=== PATIENT | female | born 1980 | race Caucasian/White ===

== ENCOUNTER → 2016-04-06 | Outpatient (CLI) | payer OTHER ==
[~2016-04-06] MED LIST: BUPIVACAINE MPF 0.25% 10 ML VIAL. ONE; CHOL400T14 PO; CYCL10TA2 PO; DEXT20TA2 PO; HYDR-2762 PO; IBUP-1060 PO; IBUP200T43 PO; IOHEXOL 180 MG/ML 10 ML VIAL. ONE; TIZA4TAB PO; TRAM50TA PO; methylPREDNISolone ACETATE 40 MG/ML VIAL. ONE; methylPREDNISolone ACETATE 80 MG/ML VIAL. ONE
--- NOTE | 2016-04-07 05:58 | PAIN ---
DATE OF SERVICE: 04/06/2016 DIAGNOSES: Lumbar radiculopathy with lumbar spondylosis and lumbar degenerative disk disease. HISTORY OF PRESENT ILLNESS: The patient is a 35-year-old female, who returns for followup, last seen in 2013. The patient had undergone lumbar epidural steroid injection. Also, we had ordered some physical therapy for her and some medication management at that time. The patient reports that she still has significant pain even over the past 3 years in the low back, bilateral posterior gluteus, and posterior thighs with radiation. The patient has recently had an MRI scan of the lumbar spine showing some degenerative disk changes in the L4-5 and L5-S1 levels, posterior annular tears at these levels as well with mild lateral recess stenosis at L4-5. This patient reports still significant pain in the low back and hips with walking, standing, and change in positions, rates her pain from a 6 to 9 on a scale of 10, reports no loss of motor function, but significant pain in the lower extremities and across the low back, slightly more on the left than the right, worse with sitting, walking, and changing positions, and since she has been walking differently, she feels that this has been making her back hurt worse and vice versa - when she is not having much difficulty with walking, her back hurts____ and then it makes her walk differently, which sets the whole thing off again. The patient reports that otherwise, she is having no new motor or sensory deficits, no new bowel or bladder incontinence or other complaints. PAST MEDICAL HISTORY: Significant for arthritis and cigarette smoking a half a pack a day since age 16. PREVIOUS SURGERIES: Include laparoscopic-assisted vaginal hysterectomy and ____. CURRENT MEDICATIONS: Were updated and include vitamin D, hydrocodone, ibuprofen, tizanidine, and tramadol. ALLERGIES: The patient has no known drug allergies. FAMILY HISTORY: Significant for cancer, diabetes, heart disease, hypertension, and spine problems. SOCIAL HISTORY: The patient is still smoking about a half pack a day or so. She is , lives with her spouse, and is employed. The patient has alcohol 1 to 2 times a year. REVIEW OF SYSTEMS: The patient's review of systems is positive for those items mentioned in the history of present illness. All systems reviewed and are otherwise negative. It is complete, full, and well-documented on the patient's chart. PHYSICAL EXAMINATION: VITAL SIGNS: Today, the patient's blood pressure is 143/75, pulse 90, respirations 18, temperature 98.2 degrees Fahrenheit, height is 5 feet 4 inches, and weight is 217 pounds. GENERAL: The patient is awake, alert, oriented, and appropriate, of very pleasant demeanor. HEENT: Head shows normocephalic, atraumatic. Extraocular movements are intact and symmetrical. Oral cavity - mucous membranes are moist and pink. Dentition is intact. NECK: Shows anterior throat supple without palpable lymphadenopathy noted. Swallow reflex is symmetrical. Neck shows full rotational motion of the cervical spine without difficulty or tenderness, including extension and flexion. CHEST: Shows normal on inspection. Breath sounds are clear to auscultation bilaterally. HEART: Shows S1 and S2 clear. No murmurs auscultated. ABDOMEN: Obese, soft, nontender, and nondistended. No palpable organomegaly. No rebound or guarding demonstrated. BACK: Shows spine grossly midline. Normal appearing thoracic kyphosis, cervical lordotic curvature, and lumbar lordotic curvature. No previous bruises, lesions, rashes, or scars are noted. The patient's lumbar paraspinous muscle shows some moderate tenderness with palpation in the middle and lower distribution bilaterally diffusely, but without specific radiation. The patient reports pain with extension and forward flexion of the lumbar spine with range of motion not tender with lateral rotation however, to the right, but significantly tender to the left with pain in the low back itself and slightly into the left posterior hip, but not into the right. The patient reports no tenderness on palpation over the sacrum or sacroiliac regions. LOWER EXTREMITIES: Showed deep tendon reflexes at 1+ in the patellar and tendocalcaneus tendons. Motor exam is strong with 5/5 dorsiflexion, extension, quadriceps, and hamstring flexion and are symmetrical. Peripheral pulses are 2+ in the posterior tibial and dorsalis pedis pulses. No peripheral edema is noted. No clubbing, no cyanosis. Lower extremities are warm and dry to touch, equal in color and appearance. Straight leg raise is noted to be negative for reproduction of radicular symptoms; caused some back pain, more on the left side with raising to 45 degrees, but less pain on the right side with 45 degrees. Gaenslen's and Anthony's maneuvers are negative bilaterally. The patient is able to stand and stand on her toes without difficulties. She is able to walk without assistive devices, and has a normal-appearing gait for a short-distance walk in the office today. PLAN: Options were discussed with the patient. The patient's old chart was reviewed, as was her current medication regimen updated. Current review of systems updated again as noted. We will proceed with bilateral lumbar facet joint injection at the L4-5 and L5-S1 levels with fluoroscopic guidance today. Risks were discussed, including, but not limited to bleeding, infection, possibility of epidural hematoma, subsequent neurologic compromise, dural puncture, headaches, spinal cord and/or nerve damage, side effects of steroid medication, and poor results regarding pain control. The patient understands and wishes to proceed. The patient will return to clinic in approximately 2 weeks for followup, was counseled on return appointment, activity level and side effects to be aware of. We did discuss potential radiofrequency ablation if significant improvement is obtained and we can repeat those results. The patient is interested in this as well. We did discuss her MRI scan also and may consider an epidural steroid injection if not significantly improved after today's procedure. DIAGNOSIS: Lumbar spondylosis with degenerative disk disease and lumbar radiculopathy. PROCEDURE: Bilateral L4-5 and L5-S1 facet joint injections with fluoroscopic guidance under sterile prep and drape using local anesthesia. MEDICATIONS: Total 120 mg of Depo-Medrol plus 4 mL of 0.25% bupivacaine and 2 mL of Isovue for contrast total. CONDITION AT DISCHARGE: Stable. The patient tolerated the procedure well, had no complications. ROSITA RANGEL MD DR: ALYSSA/wayne JOB#: [id number] / [id number]
== END | disposition home or self-care (01) ==
LOC: PNCL 10:16
PROVIDERS: ATTEND Anesthesiology
DX: M51.16 Intervertebral disc disorders with radiculopathy, lumbar region (principal); M47.26 Other spondylosis with radiculopathy, lumbar region
CPT/HCPCS: 64493; 64494; J1030; J1040; J3490

== ENCOUNTER → 2016-04-27 | Outpatient (CLI) | payer OTHER ==
--- NOTE | 2016-04-28 00:22 | PAIN ---
DATE OF SERVICE: 04/27/2016 DIAGNOSES: Lumbar degenerative disk disease, lumbar spondylosis and lumbar radiculopathy. HISTORY OF PRESENT ILLNESS: The patient is a 35-year-old female who returns for followup status post bilateral lumbar facet joint injections at the L4-L5 and L5-S1 levels about 3 weeks ago. The patient reports that she did very well, but it took a few days for the pain to decrease. She was doing very well until about a week ago when she tripped over her cat at home and twisted her back, fell on her left side and now has increased pain in the low back, left greater than right, as she did previously with some radiation to the posterior gluteus, posterior lateral thighs and anterior thighs, mostly in the back itself and the posterior gluteus. The patient reports it is constant, sharp with a pressure sensation, depends on activity, worse with standing and walking, better with sitting and has been awakening her from sleep lately as well. The patient reports the pain is 3-4 on a scale of 10 currently. The patient reports no new motor or sensory deficits, no new bowel or bladder incontinence or other complaints. PHYSICAL EXAMINATION: VITAL SIGNS: Shows blood pressure 121/82, pulse 103, respirations 18, temperature 97.8 degrees Fahrenheit, height is 5 feet 4 inches, weight is 208 pounds. GENERAL: The patient is awake, alert, oriented, appropriate, very pleasant demeanor. HEENT: Shows normocephalic, atraumatic. Extraocular movements are intact and symmetrical. Oral cavity shows mucous membranes are moist and pink. Dentition is intact. NECK: Shows anterior throat supple without palpable lymphadenopathy noted. Swallow reflex is symmetrical. CHEST: Shows normal on inspection. Breath sounds are clear to auscultation bilaterally. HEART: Shows S1 and S2 clear. No murmurs auscultated. ABDOMEN: Soft, nontender, nondistended. No palpable organomegaly is noted. No rebound or guarding demonstrated. BACK: Shows spine grossly in the midline. Lumbar paraspinous muscle shows some moderate tenderness to palpation, but only diffusely in the middle and lower distribution of paraspinous muscles, slightly more tender on the left than the right, but present bilaterally. No tenderness over the sacrum or sacroiliac regions. The patient does show some minor pain with extension of the lumbar spine, but not with forward flexion or right and left lateral rotation. EXTREMITIES: The patient's lower extremities showed deep tendon reflexes 1+ in the patellar and tendo calcaneus tendons. Motor exam is strong with 5/5 dorsiflexion, extension. Quadriceps and hamstrings are equal. Options were discussed with the patient. We will proceed with repeat bilateral L4-L5 and L5-S1 facet joint injections with fluoroscopic guidance. Risks were again discussed including, but not limited to bleeding, infection, possibility of epidural hematoma, subsequent neurological compromise, dural punctures, headaches, spinal cord and/or nerve damage, side effects of steroid medication, spread of local anesthetic and numbness, side effects of steroid medications, exposure to fluoroscopy and poor results regarding pain control. The patient understands and wishes to proceed. The patient will return to the clinic in approximately 2 weeks for followup, was counseled on return appointment, activity level and side effects to be aware of. DIAGNOSIS: Lumbar spondylosis with lumbar degenerative disk disease and lumbar radiculopathy. PROCEDURES: Bilateral L4-L5 and L5-S1 facet joint injections with fluoroscopic guidance under sterile prep and drape using local anesthetic. Medications injected a total of 120 mg of Depo-Medrol plus total of 4 mL of 0.25% bupivacaine and a total of 2 mL of Isovue for contrast. Condition at discharge is stable. The patient tolerated the procedure well, had no complications. ROSITA RANGEL MD DR: ALYSSA/wayne JOB#: [id number] / [id number]
== END | disposition home or self-care (01) ==
LOC: PNCL 12:57
PROVIDERS: ATTEND Anesthesiology
DX: M51.16 Intervertebral disc disorders with radiculopathy, lumbar region (principal); M47.26 Other spondylosis with radiculopathy, lumbar region
CPT/HCPCS: 64493; 64494; J1030; J1040; J3490

== ENCOUNTER → 2016-05-30 | Outpatient (CLI) | payer OTHER ==
[~2016-05-30] MED LIST changes: -BUPIVACAINE MPF 0.25% 10 ML VIAL. ONE; -IOHEXOL 180 MG/ML 10 ML VIAL. ONE; -methylPREDNISolone ACETATE 40 MG/ML VIAL. ONE; -methylPREDNISolone ACETATE 80 MG/ML VIAL. ONE
--- NOTE | 2016-05-31 03:26 | PAIN ---
DATE OF SERVICE: 05/30/2016 DIAGNOSES: Lumbar spondylosis with lumbar degenerative disk disease. HISTORY OF PRESENT ILLNESS: This is a 35-year-old female who returns for followup status post bilateral lumbar facet joint injections at L4-L5 and L5-S1 x 2 now, each with excellent results. The patient reports about 80% improvement after the last injections, lasting for several weeks, almost 1 month. The patient reports pain is beginning to return in the low back, slightly more on the left than the right side now, but present bilaterally, again she has been increasing her activity with greater ease and comfort, has actually lost some weight since her last visit, she has been more active because her pain has been controlled much better and she is very pleased with her progress thus far. The patient reports she has cut down her pain medicines as well. She still has 1 hydrocodone tablet ____ for 20 over a month ago. The patient reports no new motor or sensory, still significant pain across the low back, worse with sitting for prolonged periods worse with walking and extension of the lumbar spine, aching, sharp, tight and shooting pain rating from 2-8 on a scale of 10, 8 with activity. The patient reports no new motor or sensory deficits, no new bowel or bladder incontinence or other complaints, but still significant pain across the low back is noted. PHYSICAL EXAMINATION: VITAL SIGNS: The patient's blood pressure is 115/71, respirations are 18, temperature is 98.1 degrees Fahrenheit and height is 5 feet 3 inches, weight is 205 pounds. GENERAL: The patient is awake, alert, oriented, appropriate, very pleasant demeanor. HEENT: Head shows normocephalic and atraumatic. Extraocular movements are intact and symmetrical. Oral cavity, mucous membranes are moist and pink. Dentition is intact. NECK: Shows anterior throat supple without palpable lymphadenopathy noted. Swallow reflex is symmetrical. CHEST: Shows normal on inspection. Breath sounds are clear to auscultation bilaterally. HEART: Shows S1 and S2 clear. No murmurs are auscultated. ABDOMEN: Obese, soft, nontender, and nondistended. No palpable organomegaly is noted. BACK: Shows spine grossly midline. Lumbar paraspinous muscle shows some diffuse tenderness with palpation bilaterally in the lumbar distribution in the middle and lower regions bilaterally, but without radiation. It is only mild to moderate with palpation, the muscles are symmetrical, no evidence of atrophy, hypertrophy, no radiation or trigger points. No tenderness over the spinous processes, sacroiliac joint or sacrum with palpation. Lower extremities show deep tendon reflexes at 1+ in the patellar and tendo calcaneus tendons. Motor exam is strong with 5/5 dorsiflexion and extension. The patient does have good rotation and motion of the lumbar spine, but again extension greater than 10 degrees, causes significant pain across the low back, slightly more on the left than the right, but present bilaterally. This is relieved with forward flexion. Right and left lateral rotation shows mild tenderness with each direction at about 10 degrees as well. Options were discussed with the patient and the patient's old chart was reviewed as her current medication regimen and updated. Current review of systems updated today as well. We will preauthorize the patient for a radiofrequency ablation at the level L4-L5 and L5-S1 levels bilaterally. She has done very well with facet joint diagnostic blocks with up to 80% improvement, reproduced twice and she would like to proceed with this for some potential longer term pain relief. The patient will be given refill prescription for hydrocodone and 25 tablet 7.5 mg with instructions and side effects to be aware of as well and will follow up once preauthorization is obtained. ROSITA RANGEL MD DR: ALYSSA/wayne JOB#: [id number] / [id number]
== END | disposition home or self-care (01) ==
LOC: PNCL 10:47
PROVIDERS: ATTEND Anesthesiology
DX: M51.36 Other intervertebral disc degeneration, lumbar region (principal); M47.896 Other spondylosis, lumbar region
CPT/HCPCS: 99212

== ENCOUNTER → 2016-06-20 | Outpatient (CLI) | payer OTHER ==
--- NOTE | 2016-06-20 17:13 | PAIN ---
DATE OF SERVICE: 06/20/2016 PROGRESS NOTE FOR PAIN CLINIC DIAGNOSES: Lumbar spondylosis with lumbar degenerative disk disease. DISCUSSION PRESENT ILLNESS: The patient is a 35-year-old female, who returns for followup status post bilateral lumbar facet joint injections with very good results about 80% improvement overall also medication management with hydrocodone. We reschedule her for radiofrequency ablation; however, is not for about another 2-3 weeks and she is still having some pain and her schedule is not allow her to get this done prior to this and/or schedule difficult to make this happened as well. Therefore, we have her scheduled first begin July and she is having some pain in the meantime, we discussed the success with ____, which were repeated with good 80% improvement, both times she is very pleased about that and very excited to get the radiofrequency done and we will maintain as scheduled, the patient will be given refill hydrocodone today with instructions, side effects to be aware of. Reports no new motor or sensory deficits, still some pain across the low back bilaterally, slightly more on the right than the left, but essentially the same when questioned further. The patient reports no new motor or sensory deficits, no new bowel or bladder incontinence or other complaints. PHYSICAL EXAMINATION: VITAL SIGNS: Today, blood pressure 136/86, pulse 84, respirations are 20, temperature 98.6 degrees Fahrenheit, weight is 200 pounds. GENERAL: The patient is awake, alert, oriented, appropriate, very pleasant demeanor. HEENT: Head shows normocephalic, atraumatic. Extraocular movements are intact and symmetrical. Oral cavity, mucous membranes are moist and pink. Dentition is intact. NECK: Shows anterior throat supple without palpable lymphadenopathy noted. Swallow reflex is symmetrical. CHEST: Shows normal on inspection. Breath sounds are clear to auscultation bilaterally. HEART: Shows S1 and S2 clear. ABDOMEN: Soft, nontender, nondistended. No palpable organomegaly. No rebound or guarding demonstrated. BACK: The patient's back shows spine grossly midline. Lumbar paraspinous muscle shows some moderate tenderness to palpation in the lower lumbar distribution only diffusely good rotational motion with some pain with extension, but not with forward flexion. EXTREMITIES: Lower extremities show deep tendon reflexes at 1+ in the patellar and tendo calcaneus tendons. Motor exam is strong with 5/5 dorsiflexion, extension, quadriceps and hamstring flexion equal. Options were discussed with the patient. We will refill the patient's hydrocodone. The patient's old chart was reviewed as her current medication regimen and current review of systems. The patient was given instructions as well as side effects to be aware with the hydrocodone again will follow up as scheduled for radiofrequency ablation in the bilateral medial branches at the L3-L4, L4-L5 and L5-S1 levels. ROSITA RANGEL MD DR: ALYSSA/wayne JOB#: [id number] / [id number]
== END | disposition home or self-care (01) ==
LOC: PNCL 13:48
PROVIDERS: ATTEND Anesthesiology
DX: M51.36 Other intervertebral disc degeneration, lumbar region (principal); M47.896 Other spondylosis, lumbar region
CPT/HCPCS: 99212

== ENCOUNTER → 2016-07-11 | Outpatient (CLI) | payer OTHER ==
[~2016-07-11] MED LIST changes: +BUPIVACAINE MPF 0.25% 10 ML VIAL. ONE; +LIDOCAINE 1% PF 2 ML VIAL. ONE; +LIDOCAINE 2% PF Vial for OR 5 ML VIAL. ONE; +methylPREDNISolone ACETATE 40 MG/ML VIAL. ONE; +methylPREDNISolone ACETATE 80 MG/ML VIAL. ONE
--- NOTE | 2016-07-12 13:56 | PAIN ---
DATE OF SERVICE: 07/11/2016 PROGRESS NOTE FOR PAIN CLINIC DIAGNOSES: Lumbar spondylosis with lumbar degenerative disk disease and lumbar radiculopathy. HISTORY OF PRESENT ILLNESS: The patient is a 35-year-old female who returns for followup status post bilateral lumbar facet joint injections, about 85% decrease in pain. We had scheduled her for radiofrequency ablation, which she returns today to perform. The patient reports still having some pain in the low back bilaterally, right essentially equal to left in intensity, rating from 4-9 on a scale of 10, 9 is the worst with walking, standing, it becomes radiating constant pain, it is severe aching and sharp as well as dull. Also, sometimes some stabbing pain limited to the back itself with ambulation. No radiation into lower extremities at this time. The patient reports no new motor or sensory deficits, no new bowel or bladder incontinence or other complaints. PHYSICAL EXAMINATION: VITAL SIGNS: Today, the blood pressure is 111/79, pulse 84, respirations 18, temperature 98.2 degrees Fahrenheit, height is 5 feet 4 inches, weight of 195 pounds. GENERAL: The patient is awake, alert, oriented, appropriate, very pleasant demeanor. HEENT: Head shows normocephalic, atraumatic. Extraocular movements are intact and symmetrical. Oral cavity, mucous membranes are moist and pink. Dentition is intact. NECK: Shows anterior throat supple without palpable lymphadenopathy noted. Swallow reflex is symmetrical. CHEST: Shows normal on inspection. Breath sounds clear to auscultation bilaterally. HEART: Shows S1 and S2 clear. No murmurs auscultated. ABDOMEN: Soft, obese, nontender, nondistended. No palpable organomegaly is noted. No rebound or guarding demonstrated. BACK: Shows spine grossly midline. Lumbar paraspinous muscle shows some moderate tenderness to palpation in the middle and lower distribution of paraspinous muscles diffusely without radiation. The patient shows good rotational motion with some tenderness with extension, but not with forward flexion, which actually release any pain in her back. Right and left lateral rotation shows moderate tenderness with palpation bilaterally. No tenderness over the sacrum and sacroiliac regions. EXTREMITIES: Lower extremities showed deep tendon reflexes at 1+ in the patellar and tendo calcaneus tendons. Motor exam is strong with 5/5 dorsiflexion, extension, quadriceps and hamstring flexion equal. Options were discussed with the patient. The patient's old chart was reviewed as her current medication regimen updated. Current review of systems updated today as well. We will proceed with radiofrequency ablation of the L3-L4, L4-L5, and L5-S1 levels using C-arm fluoroscopic guidance. Please see radiofrequency records for impedance level, sensory and motor testing and ablation, temperatures and time of duration. DIAGNOSIS: Lumbar spondylosis with lumbar degenerative disk disease. PROCEDURE: Radiofrequency ablation, bilateral L3-L4, L4-L5 and L5-S1 levels using a C-arm fluoroscopic guidance under sterile prep and drape using local anesthetic. MEDICATIONS INJECTED: A total of 120 mg Depo-Medrol plus total of 1 mL per level, that is 8 mL of 0.25% bupivacaine after radiofrequency ablation was completed, also 2% lidocaine, 1 mL at each level, that is 8 mL of 2% lidocaine after each sensory and motor testing was performed at each medial branch. CONDITION AT DISCHARGE: Stable. The patient tolerated the procedure well, had no complications. ROSITA RANGEL MD DR: ALYSSA/wayne JOB#: [id number] / [id number]
== END | disposition home or self-care (01) ==
LOC: PNCL 12:50
PROVIDERS: ATTEND Anesthesiology
DX: M47.26 Other spondylosis with radiculopathy, lumbar region (principal); M51.16 Intervertebral disc disorders with radiculopathy, lumbar region
CPT/HCPCS: 64635; 64636; J1030; J1040; J3490

== ENCOUNTER → 2016-08-15 | Outpatient (CLI) | payer OTHER ==
[~2016-08-15] MED LIST changes: -BUPIVACAINE MPF 0.25% 10 ML VIAL. ONE; -LIDOCAINE 1% PF 2 ML VIAL. ONE; -LIDOCAINE 2% PF Vial for OR 5 ML VIAL. ONE; -methylPREDNISolone ACETATE 40 MG/ML VIAL. ONE; -methylPREDNISolone ACETATE 80 MG/ML VIAL. ONE
== END | disposition home or self-care (01) ==
LOC: PNCL 13:20
PROVIDERS: ATTEND Anesthesiology
DX: M51.16 Intervertebral disc disorders with radiculopathy, lumbar region (principal); M47.896 Other spondylosis, lumbar region
CPT/HCPCS: 99212

== ENCOUNTER → 2016-10-18 | Outpatient (CLI) | payer OTHER ==
--- NOTE | 2016-10-18 12:34 | PAIN ---
DATE OF SERVICE: 10/18/2016 DATE OF SERVICE: 10/18/2016 DIAGNOSES: Lumbar spondylosis, lumbar degenerative disk disease. HISTORY OF PRESENT ILLNESS: The patient is a 36-year-old female who returns for followup status post radiofrequency ablation on 07/11/2016. The patient did very well with about 95% improvement. The patient reports she was doing very well until the last about 3 days ago, she woke up and had significant pain only on the right side of her low back, but very similar to that what she had prior to the radiofrequency ablation and facet joint injections, which she had about 90% improvement with as well and we subsequently did the radiofrequency ablation with about 95% improvement. The patient reports the pain is returning now significantly as burning, stabbing, sharp, shooting, constant severe in the right low back, rates as a 9 on a scale of 10, 7 on average and a 6 on a scale of 10 at its least. The patient reports it is inhibiting her ability to walk and stand on the right side. She cannot get comfortable as it is waking her from sleep now for the past few days. It is very significantly tender. She has been using ice pack, which seems to help, but she feels like her back "gives out." The patient reports no new motor or sensory deficits, no significant left-sided symptoms, just on the right side. PHYSICAL EXAMINATION: VITAL SIGNS: The patient's blood pressure 119/80, pulse 90, respirations 18, temperature 98.4 degrees Fahrenheit, height is 5 feet 4 inches, weighs 177 pounds. GENERAL: The patient is awake, alert, oriented, appropriate, very pleasant demeanor. HEENT: Shows normocephalic, atraumatic. Extraocular movements are intact, symmetrical. Oral cavity: Mucous membranes moist and pink. Dentition is intact. NECK: Shows anterior throat supple without palpable lymphadenopathy noted. Swallow reflex is symmetrical. CHEST: Shows normal on inspection. Breath sounds clear to auscultation bilaterally. HEART: Shows S1 and S2 clear. ABDOMEN: Soft, nontender, nondistended. BACK: Shows spine grossly in midline. Lumbar paraspinous musculature shows some significant tenderness with palpation over the right low and middle paraspinous musculature without radiation compared to the left, much more firm on the right, but with good rotational motion with pain with extension and right lateral rotation, but not with forward flexion, left side is nontender as well. EXTREMITIES: Lower extremities show deep tendon reflexes at 1+ in the patellar and tendo calcaneus tendons are equal. Motor exam is strong with 5/5 dorsiflexion and extension. Options were discussed with the patient. The patient's old chart was reviewed as her current medication regimen updated. Current review of systems updated today as well. We will preauthorize the patient for repeat right-sided L4-L5 and L5-S1 facet joint injections as she has done very well with these in the past and seems to have a slight increase in the pain only on the right side. The patient will return to clinic in approximately 1 week. We will plan on right-sided L4-L5 and L5-S1 facet joint injections at that time. In the meantime, we will try Medrol Dosepak. The patient was given instruction as well as side effects to be aware of with the medication. We will follow up as scheduled. ROSITA RANGEL MD DR: ALYSSA/wayne JOB#: [id number] / [id number]
== END | disposition home or self-care (01) ==
LOC: PNCL 08:15
PROVIDERS: ATTEND Anesthesiology
DX: M51.36 Other intervertebral disc degeneration, lumbar region (principal); M47.896 Other spondylosis, lumbar region
CPT/HCPCS: 99212

== ENCOUNTER → 2016-11-01 | Outpatient (CLI) | payer OTHER ==
[~2016-11-01] MED LIST changes: +BUPIVACAINE MPF 0.25% 10 ML VIAL. ONE; +IOHEXOL 180 MG/ML 10 ML VIAL. ONE; +methylPREDNISolone ACETATE 40 MG/ML VIAL. ONE; +methylPREDNISolone ACETATE 80 MG/ML VIAL. ONE
--- NOTE | 2016-11-01 17:46 | PAIN ---
DATE OF SERVICE: 11/01/2016 DIAGNOSES: Lumbar degenerative disk disease, lumbar spondylosis and lumbar radiculopathy. HISTORY OF PRESENT ILLNESS: The patient is a 36-year-old female who returns for followup status post radiofrequency ablation of the bilateral L4-L5 and L5-S1 levels on 07/11/2016. The patient did very well but had some pain returning in the right side. Over the last few weeks, the patient reported increased pain only on the right, left side is near 100% improved after the radiofrequency. Both sides were 100% improved for about 3 months until the pain began to return on the right side only in the low back, again not to the level that it was previously, but still significant pain. The patient rates it is 7 on a scale of 10, is 5 on average, 3 at its least and 3 on a scale 10 today. We did try Medrol Dosepak after her last visit, which helped about 40%, but she has not noted any new activities or injuries or any accidents that she is aware of that may have exacerbated the pain. It is just returning in the right low back as it was prior to the radiofrequency ablation. The patient reports no new motor or sensory deficits, no new bowel or bladder incontinence or other complaints. PHYSICAL EXAMINATION: VITAL SIGNS: The patient's blood pressure is 125/70, pulse 70, respirations 18, temperature is 98.3 degrees Fahrenheit, height is 5 feet 4 inches, weight is 169 pounds. GENERAL: The patient is awake, alert, oriented, appropriate, very pleasant demeanor. HEENT: Head shows normocephalic, atraumatic. Extraocular movements are intact and symmetrical. Oral cavity shows mucous membranes moist and pink. NECK: Shows anterior throat supple. CHEST: Shows breath sounds clear to auscultation bilaterally. HEART: Shows S1 and S2 clear. ABDOMEN: Soft, nontender, nondistended. No palpable organomegaly is noted. BACK: Shows spine grossly in midline. Lumbar paraspinous musculature shows normal lordotic curvature, symmetrical musculature bilaterally with palpation shows some moderate tenderness with deep palpation on the right side only in the middle and lower distribution, left side is nontender. Both sides are symmetrical and normal muscle girth. No tenderness over the sacrum or sacroiliac regions. The patient shows good rotation of motion with some minor pain in the right-sided low back with extension only but not with right or left lateral rotation or forward flexion. EXTREMITIES: Lower extremities show deep tendon reflexes at 2+/4 in the patellar tendons. Motor exam is strong with 5/5 dorsiflexion, extension, quadriceps and hamstring flexion equal. Pulses are 1+ bilaterally. No peripheral edema is noted. Options were discussed with the patient. We will proceed with a right-sided L4-L5 and L5-S1 facet joint injections today with fluoroscopic guidance. Risks were again discussed including, but not limited to bleeding, infection, possibility of intravascular injection sequelae, spread of local anesthetic and numbness, side effects of steroid medications, exposure to fluoroscopy and poor results regarding pain control. The patient understands and wishes to proceed. The patient will return to clinic in approximately 2 weeks for followup. She was counseled on return appointment, activity levels and side effects to be aware of. DIAGNOSIS: Lumbar spondylosis and lumbosacral spondylosis. PROCEDURE: Right-side L4-L5 and L5-S1 facet joint injections with C-arm fluoroscopic guidance under sterile prep and drape using local anesthetic. MEDICATION INJECTED: A total of 120 mg Depo-Medrol plus 2 mL of 0.25% bupivacaine and 2 mL of Isovue for contrast. CONDITION AT DISCHARGE: Stable. The patient tolerated procedure well, had no complications. ROSITA RANGEL MD DR: ALYSSA/wayne JOB#: [id number] / [id number]
== END | disposition home or self-care (01) ==
LOC: PNCL 08:41
PROVIDERS: ATTEND Anesthesiology
DX: M47.26 Other spondylosis with radiculopathy, lumbar region (principal); M51.16 Intervertebral disc disorders with radiculopathy, lumbar region
CPT/HCPCS: 64493; 64494; J1030; J1040; J3490

== ENCOUNTER → 2016-11-17 | Outpatient (CLI) | payer OTHER ==
[~2016-11-17] MED LIST changes: -BUPIVACAINE MPF 0.25% 10 ML VIAL. ONE; -IOHEXOL 180 MG/ML 10 ML VIAL. ONE; -methylPREDNISolone ACETATE 40 MG/ML VIAL. ONE; -methylPREDNISolone ACETATE 80 MG/ML VIAL. ONE
--- NOTE | 2016-11-17 09:33 | PAIN ---
DATE OF SERVICE: 11/17/2016 DIAGNOSES: 1. Lumbar spondylosis and lumbosacral spondylosis. 2. Lumbar degenerative disk disease and lumbar radiculopathy. HISTORY OF PRESENT ILLNESS: The patient is a 36-year-old female who returns for followup status post radiofrequency ablation of the bilateral L4 and L5 levels with very good results, initially patient had the returning pain on the right side. We had repeated a right L4-L5 and L5-S1 facet joint injection on her last visit 11/01. Following the radiofrequency ablation, now she has 100% improvement of the right side, but the left side is now increasing in pain in the low back itself, not to the point where the right side was but getting close and is getting worse daily. The patient reports it is increasing and is becoming much more painful. Rates it as a 6 on a scale 10, currently is a 3 at least. The patient reports it is stabbing, shooting, sharp, aching pain in the left low back without radiation into the lower extremities. The patient reports no new motor or sensory deficits, no new bowel or bladder incontinence or other complaints, but significantly tender, it is worse with walking and sitting. She is having difficulty getting comfortable, is waking her from sleep over the past week or so as well. The patient is using an ice pack which seems to help, but becomes more noticeable daily on the left side now. The patient reports no new motor or sensory deficits, no new bowel or bladder incontinence or other complaints. PHYSICAL EXAMINATION: VITAL SIGNS: Today, the patient's blood pressure is 111/71, pulse 91, respirations 18, temperature 98.3 degrees Fahrenheit, height is 5 feet 4 inches. Weighs 171 pounds. GENERAL: The patient is awake, alert, oriented, appropriate, very pleasant demeanor. HEENT: Shows head normocephalic, atraumatic. Extraocular movements are intact, symmetrical. Oral cavity, mucous membranes are moist and pink. Dentition is intact. NECK: Shows anterior throat supple. CHEST: Shows breath sounds clear to auscultation bilaterally. HEART: Shows S1 and S2 clear. No murmurs auscultated. ABDOMEN: Soft, nontender, nondistended. No palpable organomegaly is noted. BACK: Shows grossly midline spine. Lumbar paraspinous musculature shows some asymmetry with inspection. With palpation shows some significant tenderness over the left low and middle paraspinous musculature, but without specific radiation and more firm on the left than the right. The patient shows good rotational motion with some pain with extension and left lateral rotation and better with forward flexion, right side is nontender through all of these maneuvers as well. The patient's lower extremities showed deep tendon reflexes 1+ in the patellar and tendo calcaneus tendons. Motor exam is strong with 5/5 dorsiflexion, extension, quadriceps and hamstring flexion. Peripheral pulses are 2+ bilaterally dorsalis pedis. Options were discussed with the patient at this time. The patient's old chart was reviewed as her current medication regimen updated. Current review of systems updated today as well. We will preauthorize the patient for left-sided L4-L5 and L5-S1 facet joint injections as these have helped very well and patient had similar pain after radiofrequency on the right side, which was completely relieved with additional facet joint injections on the right. We will preauthorize for these on the left at this time as she is having very similar symptoms only left- sided at this time. The patient will return to clinic in approximately 1 week. We will plan on the left side at L4-L5 and L5-S1 facet joint injections. The patient was given Medrol Dosepak in the meantime with instructions of side effects to be aware of as well as refill on the patient's hydrocodone with instructions of side effects discussed as well. ROSITA RANGEL MD DR: ALYSSA/wayne JOB#: [id number] / [id number]
== END | disposition home or self-care (01) ==
LOC: PNCL 08:43
PROVIDERS: ATTEND Anesthesiology
DX: M51.16 Intervertebral disc disorders with radiculopathy, lumbar region (principal); M47.817 Spondylosis without myelopathy or radiculopathy, lumbosacral region
CPT/HCPCS: 99212

== ENCOUNTER → 2016-11-28 | Outpatient (CLI) | payer OTHER ==
[~2016-11-28] MED LIST changes: +BUPIVACAINE MPF 0.25% 10 ML VIAL. ONE; +IOHEXOL 180 MG/ML 10 ML VIAL. ONE; +methylPREDNISolone ACETATE 40 MG/ML VIAL. ONE; +methylPREDNISolone ACETATE 80 MG/ML VIAL. ONE
--- NOTE | 2016-11-28 19:01 | PAIN ---
DATE OF SERVICE: 11/28/2016 DIAGNOSES: Lumbar degenerative disk disease with lumbar spondylosis and lumbosacral spondylosis. HISTORY OF PRESENT ILLNESS: The patient is a 36-year-old female who returns for followup status post radiofrequency ablation in July of the L4-L5 and L5-S1 median branches. The patient did very well initially with near 100% improvement. Then, pain began to return on her right side. We reinjected the right facet joints with methylprednisolone and local anesthetic with excellent results. Now, the left side has been giving her trouble. Right side is still 100% improved. Left side has significant pain in the low back with movement, rotation to the left as well as extension of the spine. No new motor or sensory deficits. No significant radiation of pain. The patient reports it is awakening her from sleep at night; however, it has been bothering her only on the left side. The patient reports no radiation to lower extremity. It is tight, aching, burning, stabbing, becoming more constant and more severe. The patient reports no new motor or sensory deficits. No new bowel or bladder incontinence or other complaints. PHYSICAL EXAMINATION: VITAL SIGNS: The patient's blood pressure 114/78, pulse 84, respirations 18, temperature 98.4 degrees Fahrenheit, height is 5 feet 4 inches, weight 169 pounds. GENERAL: The patient is awake, alert, oriented, appropriate, very pleasant demeanor. HEENT: Shows normocephalic, atraumatic. Extraocular movements are intact, symmetrical. Oral cavity, mucous membranes moist and pink. Dentition is intact. NECK: Shows anterior throat supple without palpable lymphadenopathy noted. Swallow reflex is symmetrical. CHEST: Shows normal on inspection. Breath sounds clear to auscultation bilaterally. HEART: Shows S1 and S2 clear. No murmurs auscultated. ABDOMEN: Soft, nontender, nondistended. BACK: Shows spine grossly midline. Lumbar paraspinous muscle shows some [id number] tenderness with palpation in the left lower lumbar paraspinous muscles, but only diffusely. Right side only very mildly tender. No radiation is demonstrated. The patient shows full rotation and motion of lumbar spine, both laterally greater than 10 degrees right and left as well as extension greater than 10 degrees, forward flexion 45 degrees with some pain reported with extension on the left side and left lateral rotation only. Lower extremities showed deep tendon reflexes at 2+ in the patellar, 1+ tendo calcaneus tendons. Motor exam is strong with 5/5 dorsiflexion, extension, quadriceps and hamstring flexion and symmetrical. Options were discussed with the patient. The patient's old chart was reviewed as her current medication regimen and updated. Current review of systems is updated today as well and we will proceed with the left-sided L4-L5 and L5-S1 facet joint injections. Risks were again discussed including, but not limited to bleeding, infection, possibility of epidural hematoma, subsequent neurologic compromise, dural punctures, headaches, spinal cord and/or nerve damage, side effects of steroid medications, exposure to fluoroscopy and poor results regarding pain control. The patient understands and wished to proceed. The patient will return to the clinic in approximately 2 weeks for followup, was counseled on return appointment, activity level and side effects to be aware of. DIAGNOSIS: Lumbar and lumbosacral spondylosis, left-sided. PROCEDURE: L4-L5 and L5-S1 lumbar facet joint injections using C-arm fluoroscopic guidance under sterile prep and drape using local anesthetic. Medication injected is total of 120 mg Depo-Medrol plus 2 mL total of 0.25% bupivacaine and 2 mL total of Isovue for contrast. CONDITION ON DISCHARGE: Stable. The patient tolerated the procedure well, had no complications. ROSITA RANGEL MD DR: ALYSSA/wayne JOB#: [id number] / [id number]
== END | disposition home or self-care (01) ==
LOC: PNCL 13:21
PROVIDERS: ATTEND Anesthesiology
DX: M47.816 Spondylosis without myelopathy or radiculopathy, lumbar region (principal); M51.36 Other intervertebral disc degeneration, lumbar region
CPT/HCPCS: 64493; 64494; J1030; J1040; J3490

== ENCOUNTER → 2016-12-23 | Outpatient (CLI) | payer OTHER ==
[~2016-12-23] MED LIST changes: -BUPIVACAINE MPF 0.25% 10 ML VIAL. ONE; -IOHEXOL 180 MG/ML 10 ML VIAL. ONE; -methylPREDNISolone ACETATE 40 MG/ML VIAL. ONE; -methylPREDNISolone ACETATE 80 MG/ML VIAL. ONE
--- NOTE | 2016-12-26 04:02 | PAIN ---
DATE OF SERVICE: 12/23/2016 DIAGNOSES: Lumbar degenerative disk disease and lumbosacral spondylosis. HISTORY OF PRESENT ILLNESS: The patient is a 36-year-old female who returns for followup, status post radiofrequency ablation on 07/11/2016 with very good improvement about 99% improvement for 3 months. The pain began to return. First on the right side, we had repeated a facet joint injection, which was helpful by 90%, that was in October and then on November 28, she had a left-sided lumbar facet injection. The pain began to return on the left side with about a 75-80% improvement. The patient reports she has done very well, but the pain is returning now bilaterally, somewhat worse in the right than the left, but present bilaterally in the low back itself, not radiating into the lower extremities at all, but in the back with standing, walking , changing positions, bending, especially with extension of the spine or straightening up or reaching high over her head with extension of the lumbar spine. Significant pain becoming much more aching, sharp, dull, tight, shooting, burning, cramping, becoming more severe, more constant. Rates as a 8 on a scale of 10 at its worst and it is a 3 at its least and a 5 on average. The patient reports it is a 5 today. The patient reports no new motor or sensory deficits. No new bowel or bladder incontinence, but still significant pain in the low back, especially with rotation and extension bilaterally. PHYSICAL EXAMINATION: VITAL SIGNS: Today, the patient's blood pressure is 106/66, pulse 99, respirations 20, temperature 98.2 degrees Fahrenheit, height is 5 feet 4 inches, weight is 171 pounds. GENERAL: The patient is awake, alert, oriented, appropriate, very pleasant demeanor. HEENT: Head shows normocephalic, atraumatic. Extraocular movements are intact and symmetrical. Oral cavity shows mucous membranes are moist and pink. Dentition is intact. NECK: Shows anterior throat supple without palpable lymphadenopathy noted. Swallow reflex is symmetrical. CHEST: Shows normal on inspection. Breath sounds are clear to auscultation bilaterally. HEART: Shows S1 and S2 clear. No murmurs auscultated. ABDOMEN: Soft, obese, nontender, nondistended. No palpable organomegaly is noted. No rebound or guarding demonstrated. BACK: Shows spine grossly in the midline. Normal appearing thoracic kyphosis and lumbar lordotic curvature. Lumbar paraspinous muscle shows symmetrical on inspection, with palpation shows significant tenderness in the middle and lower distribution in the paraspinous muscles diffusely throughout bilaterally. No tenderness over the spinous processes, sacrum or sacroiliac regions. The patient has good rotational motion both laterally, greater than 10 degrees with fairly significant pain reported with right lateral rotation greater than left but present bilaterally. With extension, the pain is significant and much more severe across the low back. Forward flexion decreases the pain to a moderate extent but is still present. EXTREMITIES: Lower extremities show deep tendon reflexes at 2+ in the patellar and tendo calcaneus tendons are 1+. Motor exam is strong with 5/5 dorsiflexion, extension, quadriceps and hamstring flexion. Straight leg raise noted to be negative for radicular symptoms bilaterally. Peripheral pulses are 1+ in the posterior tibia. No peripheral edema is noted. Options were discussed with the patient and the patient's old chart was reviewed as her current medication regimen updated. Current review of systems updated today as well and we will preauthorize the patient for repeat of radiofrequency ablation of the L3-L4, L4-L5 and L5-S1 levels as she did very well with this ____ it will be 6 months since her ablation. We will have her preauthorize for this as the pain is returning in significant lumbar and lumbosacral distribution across the low back consistent with facet syndrome. The patient will return to clinic in approximately 2-1/2 weeks, which will be 6 months from her original radiofrequency ablation and plan on repeat radiofrequency ablation at that time. In the meantime, the patient was given Medrol Dosepak with instructions and side effects to be aware of and also hydrocodone with instructions and side effects to be aware of discussed and will return as scheduled. ROSITA RANGEL MD DR: ALYSSA/wayne JOB#: [id number] / [id number]
== END | disposition home or self-care (01) ==
LOC: PNCL 08:32
PROVIDERS: ATTEND Anesthesiology
DX: M51.36 Other intervertebral disc degeneration, lumbar region (principal); M47.897 Other spondylosis, lumbosacral region
CPT/HCPCS: 99212

== ENCOUNTER → 2017-01-12 | Outpatient (CLI) | payer OTHER ==
[~2017-01-12] MED LIST changes: +BUPIVACAINE MPF 0.25% 10 ML VIAL. ONE; -IBUP200T43 PO; +IBUP200T44 PO; +LIDOCAINE 1% PF 2 ML VIAL. ONE; +LIDOCAINE 2% PF Vial for OR 5 ML VIAL. ONE; +methylPREDNISolone ACETATE 40 MG/ML VIAL. ONE; +methylPREDNISolone ACETATE 80 MG/ML VIAL. ONE
--- NOTE | 2017-01-12 18:20 | PAIN ---
DATE OF SERVICE: 01/12/2017 DIAGNOSES: 1. Lumbar spondylosis and lumbosacral spondylosis. 2. Lumbar degenerative disk disease with lumbar radiculopathy. HISTORY OF PRESENT ILLNESS: The patient is a 36-year-old female who returns for followup status post radiofrequency ablation as well as bilateral facet joint injections. The patient had her initial radiofrequency ablation on 07/11/2014, with excellent results about 3 months of near 100% relief. The pain began to return over her right side in the low back. We did lumbar facet injections with 90% improvement, then the left side began to return. We did lumbar facet injections on 11/28, with about 75% improvement. The patient reports the pain is returning now to near what it was at its baseline in the bilateral lower extremities, slightly worse on the right than the left, but present bilaterally, worse with rotation, flexing, extension, bending, weightbearing, standing, also with prolonged sitting, greater than 30 minutes or so. Riding in a car has been difficult for her. It awakens her from sleep occasionally, but better in 2-3 hours, it is all she can get to sleep before it awakens her. She has to reposition, change positions or take pain medication to get it decreased. The patient describes the pain as tingling, burning, stabbing, sharp, aching, shooting, severe, becoming more constant across the low back. The patient reports it is 8 on a scale 10 at its worst, 6 on average and a 5 at its least and is a 6 today. The patient reports no new motor or sensory deficits; however, no new bowel or bladder incontinence or other complaints. PHYSICAL EXAMINATION: VITAL SIGNS: Today, blood pressure is 117/88, pulse is 88, respirations 16, temperature 98.1 degrees, height is 5 feet 4 inches, weighs 177 pounds. GENERAL: The patient is awake, alert, oriented, appropriate, very pleasant demeanor. HEENT: Head shows normocephalic, atraumatic. Extraocular movements are intact, symmetrical. Oral cavity: Mucous membranes moist and pink. Dentition is intact. NECK: Shows anterior throat supple without palpable lymphadenopathy noted. Swallow reflex is symmetrical. CHEST: Shows normal on inspection. Breath sounds clear to auscultation bilaterally. HEART: Shows S1, S2 clear. No murmurs auscultated. ABDOMEN: Shows obese, soft, nontender, nondistended. No palpable organomegaly is noted. No rebound or guarding demonstrated. BACK: The patient's back shows spine grossly in midline. Normal-appearing thoracic kyphosis and lumbar lordotic curvatures. Lumbar paraspinous muscle shows symmetrical with inspection on palpation, shows some moderate tenderness with palpation, only diffusely bilaterally without radiation. The patient shows no tenderness with palpation over the sacroiliac regions or the spinous processes. The patient does show increased pain with rotational motion laterally, both right and left, greater than 10 degrees as well as extension greater than 10 degrees with pain bilaterally, more on the right than the left. Better with forward flexion, but still with some minor pain reported in the right side in the low back without radiation. EXTREMITIES: Lower extremities show deep tendon reflexes at 2+ in the patellar and tendo calcaneus at 1+. Motor exam is strong with 5/5 dorsiflexion, extension, quadriceps and hamstring flexion and equal bilaterally. Peripheral pulses are 2+. No peripheral edema is noted bilaterally. Options were discussed with the patient. The patient's old chart was reviewed, her current medication regimen updated. Current review of systems updated today as well. We will proceed with bilateral radiofrequency ablation of the L4-L5 and L5-S1 levels using C-arm fluoroscopic guidance. Risks were discussed including but not limited to bleeding, infection, possibility of epidural hematoma, subsequent neurologic compromise, dural puncture, headache, spinal cord and/or nerve damage, side effects of steroid medication, exposure to fluoroscopy, radiofrequency and thermal damage to the surrounding structures around the median branches as well as motor nerves and potential motor loss as well as poor results regarding pain control. The patient understands and wished to proceed. The patient will return to clinic in approximately 3 weeks for followup. She was counseled on return appointment, activity level and side effects to be aware of. DIAGNOSES: Lumbar spondylosis and lumbosacral spondylosis. PROCEDURE: Radiofrequency ablation, L4-L5 and L5-S1 levels median branches using C-arm fluoroscopic guidance under sterile prep and drape using local anesthetic and insulated 22 gauge radiofrequency needles. MEDICATION INJECTED: A total of 120 mg Depo-Medrol, plus 6 mL 0.25% bupivacaine after radiofrequency ablation and lidocaine 2%, 1 mL per level 6 mL total after motor testing, but prior to radiofrequency ablation. CONDITION AT DISCHARGE: Stable. The patient tolerated the procedure well, had no complications. Please see radiofrequency flow sheet for details regarding impedance levels temperature times, and radiofrequency levels. ROSITA RANGEL MD DR: ALYSSA/wayne JOB#: [id number] / [id number]
== END | disposition home or self-care (01) ==
LOC: PNCL 12:47
PROVIDERS: ATTEND Anesthesiology
DX: M51.16 Intervertebral disc disorders with radiculopathy, lumbar region (principal); M47.26 Other spondylosis with radiculopathy, lumbar region
CPT/HCPCS: 64635; 64636; J1030; J1040; J3490; 64493; 64494; J2001

== ENCOUNTER → 2017-02-09 | Outpatient (CLI) | payer OTHER | END | disposition home or self-care (01) | LOC: PNCL 10:29 | DX: M51.16 Intervertebral disc disorders with radiculopathy, lumbar region (principal); M47.897 Other spondylosis, lumbosacral region; M47.896 Other spondylosis, lumbar region | CPT/HCPCS: 99212 ==

== ENCOUNTER → 2017-04-04 | Outpatient (CLI) | payer OTHER | END | disposition home or self-care (01) | LOC: PNCL 08:04 | DX: M51.36 Other intervertebral disc degeneration, lumbar region (principal); M47.817 Spondylosis without myelopathy or radiculopathy, lumbosacral region | CPT/HCPCS: 99212 ==

== ENCOUNTER → 2017-04-18 | Outpatient (CLI) | payer OTHER | END | disposition home or self-care (01) | LOC: PNCL 08:06 | DX: M51.36 Other intervertebral disc degeneration, lumbar region (principal); M47.817 Spondylosis without myelopathy or radiculopathy, lumbosacral region | CPT/HCPCS: 99212 ==

== ENCOUNTER → 2017-05-15 | Outpatient (CLI) | payer OTHER ==
[~2017-05-15] MED LIST changes: +BUPIVACAINE MPF 0.25% 10 ML VIAL.; -BUPIVACAINE MPF 0.25% 10 ML VIAL. ONE; -CHOL400T14 PO; -CYCL10TA2 PO; -DEXT20TA2 PO; -HYDR-2762 PO; -IBUP-1060 PO; -IBUP200T44 PO; +IOHEXOL 180 MG/ML 10 ML VIAL.; -LIDOCAINE 1% PF 2 ML VIAL. ONE; -LIDOCAINE 2% PF Vial for OR 5 ML VIAL. ONE; -TIZA4TAB PO; -TRAM50TA PO; +methylPREDNISolone ACETATE 40 MG/ML VIAL.; -methylPREDNISolone ACETATE 40 MG/ML VIAL. ONE; +methylPREDNISolone ACETATE 80 MG/ML VIAL.; -methylPREDNISolone ACETATE 80 MG/ML VIAL. ONE
== END | disposition home or self-care (01) ==
LOC: PNCL 07:59
DX: M51.36 Other intervertebral disc degeneration, lumbar region (principal); M47.817 Spondylosis without myelopathy or radiculopathy, lumbosacral region
CPT/HCPCS: 64493; 64494; J1030; J1040; J3490; Q9965

== ENCOUNTER → 2017-06-26 | Outpatient (CLI) | payer OTHER | END | disposition home or self-care (01) | LOC: PNCL 13:21 | DX: M51.36 Other intervertebral disc degeneration, lumbar region (principal); M47.897 Other spondylosis, lumbosacral region | CPT/HCPCS: 99212 ==

== ENCOUNTER → 2017-07-25 | Outpatient (CLI) | payer OTHER ==
[~2017-07-25] MED LIST changes: -BUPIVACAINE MPF 0.25% 10 ML VIAL.; +BUPIVACAINE MPF 0.25% 30 ML VIAL.; -IOHEXOL 180 MG/ML 10 ML VIAL.; +LIDOCAINE 1% PF 2 ML VIAL.; +LIDOCAINE 2% PF Vial for OR 5 ML VIAL.
== END | disposition home or self-care (01) ==
LOC: PNCL 13:13
DX: M51.36 Other intervertebral disc degeneration, lumbar region (principal); M47.817 Spondylosis without myelopathy or radiculopathy, lumbosacral region
CPT/HCPCS: 64635; 64636; J1030; J1040; J2001; J3490

== ENCOUNTER → 2017-08-22 | Outpatient (CLI) | payer OTHER | END | disposition home or self-care (01) | LOC: PNCL 12:52 | DX: M51.36 Other intervertebral disc degeneration, lumbar region (principal); M47.897 Other spondylosis, lumbosacral region | CPT/HCPCS: 99212 ==

== ENCOUNTER → 2017-10-16 | Outpatient (CLI) | payer OTHER ==
[~2017-10-16] MED LIST changes: -BUPIVACAINE MPF 0.25% 30 ML VIAL.; +CHOL400T14 PO; +CYCL10TA2 PO; +DEXT20TA2 PO; +HYDR-2762 PO; +IBUP-1060 PO; +IBUP200T44 PO; -LIDOCAINE 1% PF 2 ML VIAL.; -LIDOCAINE 2% PF Vial for OR 5 ML VIAL.; +TIZA4TAB PO; +TRAM50TA PO; -methylPREDNISolone ACETATE 40 MG/ML VIAL.; -methylPREDNISolone ACETATE 80 MG/ML VIAL.
--- NOTE | 2017-10-16 13:06 | PAIN ---
DATE OF SERVICE: 10/16/2017 PROGRESS NOTE FOR PAIN CLINIC DIAGNOSIS: Lumbar degenerative disk disease with lumbar and lumbosacral spondylosis. HISTORY OF PRESENT ILLNESS: The patient is a 37-year-old female who returns for followup status post radiofrequency ablation on 07/25/2017, also previous facet injections prior to that which she did very well with. The patient reports she has been doing very well with about 80-90% improvement since the radiofrequency ablation in July; however, the pain is returning. She had a very severe cough for the past 2 weeks or so and coughed for about 3 days straight she reports with increased pain in her low back. This is worse now with extension of the lumbar spine and axial loading of the lumbar vertebrae and also with right and left lateral rotation, better with forward flexion, worse with sitting for prolonged periods, standing is sometimes better, but if she stands more than 15-20 minutes, it gets worse. The patient reports it is awakening her from sleep at night. She is only sleeping about 3 hours at a time. The patient reports it is stabbing, shooting, sharp, aching, constant, severe across the low back and itself, somewhat worse on the left than the right, but present bilaterally. No radiation to the lower extremities. The patient reports it is a 8 on a scale of 10 at its worst, 7 on average, 6 at its least and is a 7 today. The patient reports no new bowel or bladder incontinence, no new motor or sensory deficits. PHYSICAL EXAMINATION: VITAL SIGNS: The patient's blood pressure is 106/65, pulse 70, respirations 18, temperature 97.2 degrees Fahrenheit, height is 5 feet 3 inches, weighs 185 pounds. GENERAL: The patient is awake, alert, oriented, appropriate, very pleasant demeanor. HEENT: Head shows normocephalic, atraumatic. Extraocular movements are intact and symmetrical. Oral cavity: Mucous membranes are moist and pink. Dentition is intact. NECK: Shows anterior throat supple without palpable lymphadenopathy noted. Swallow reflex is symmetrical. CHEST: Shows normal on inspection. Breath sounds are clear to auscultation bilaterally. HEART: Shows S1, S2 clear. No murmurs auscultated. ABDOMEN: Soft, nontender, nondistended. No palpable organomegaly is noted. No rebound or guarding demonstrated. BACK: Shows spine grossly in the midline. Normal appearing thoracic kyphosis and lumbar lordotic curvature. Lumbar paraspinous muscle shows symmetrical on inspection, on palpation shows some moderate tenderness only diffusely bilaterally without radiation. The patient shows significant tenderness with extension of the lumbar spine; however, more on the left than the right with axial loading of the low back, better with forward flexion, right and left lateral rotation is tender bilaterally as well, somewhat more to the left than the right, greater than 10 degrees with rotation. EXTREMITIES: Lower extremities show deep tendon reflexes 2+ in the patellar and tendo calcaneus tendons are 1+. Motor exam is strong with 5/5 dorsiflexion, extension, quadriceps and hamstring flexion and equal. Peripheral pulses are 1+ posterior tibia. No peripheral edema is noted. Options were discussed with the patient. The patient's old chart was reviewed as her current medication regimen updated. Current review of systems updated today as well. We will preauthorize the patient for additional lumbar facet joint injections at the L4-L5 and L5-S1 levels bilaterally. This patient is having significant axial loading pain with extension of the lumbar spine, but without radiation to the lower extremities. The patient was given Medrol Dosepak as well as instructions and side effects to be aware of. Also, refill the patient's hydrocodone 7.5 mg, 60 tablets total with instructions and side effects to be aware of as well. The patient will return to the clinic in approximately 1 week. We will plan on bilateral L4-L5 and L5-S1 lumbar facet joint injections at that time. ROSITA RANGEL MD DR: ALYSSA/wayne JOB#: [id number] / [id number]
== END | disposition home or self-care (01) ==
LOC: PNCL 11:26
PROVIDERS: ATTEND Anesthesiology
DX: M51.36 Other intervertebral disc degeneration, lumbar region (principal); M47.897 Other spondylosis, lumbosacral region
CPT/HCPCS: 99212

== ENCOUNTER → 2017-10-31 | Outpatient (CLI) | payer OTHER ==
[~2017-10-31] MED LIST changes: +MULT1TAB52 PO
--- NOTE | 2017-10-31 12:08 | PAIN ---
DATE OF SERVICE: 10/31/2017 PROGRESS NOTE FOR PAIN CLINIC DIAGNOSES: Lumbar degenerative disk disease and lumbar and lumbosacral spondylosis. HISTORY OF PRESENT ILLNESS: The patient is a 37-year-old female who returns for followup status post both radiofrequency ablations and facet joint injections. The patient has had in the last 12 months total of 5 injections starting on 11/01/2016 with right lumbar facet injections on 11/28/2016 with left lumbar facet injections. On January 12 had bilateral lumbar radiofrequencies at L4-L5 and L5-S1. On 05/15/2017 had bilateral lumbar facet injections, L4-L5 and L5-S1 and July 25 had bilateral radiofrequency ablation L4-L5 and L5-S1 medial branches. The patient reports 90% improvement after her last procedure lasting for about 2 months now. The patient reports that the pain is returning now and she is very active. 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 The patient reports initially she is able to increase her distance walking, able to increase activity both recreationally as well as work and household activities significantly again with about 90% improvement for the first few months after the radiofrequency ablation. The patient reports now the pain is returning in the low back, tingling, burning, stinging sharp, tight, becoming more constant, more severe in the low back itself without significant radiation. The patient reports it is 7 on a scale of 10 at its worst, 5 on average, 4 at its least and is a 5 today. The patient reports no loss of motor function and no new bowel or bladder incontinence or other complaints. It does awaken her from sleep about every 3-4 hours, she can reposition or take pain medication and she has been taking hydrocodone, which has been helping and again after radiofrequency ablation, she did not need hydrocodone for almost 2 months. PHYSICAL EXAMINATION: VITAL SIGNS: Today, the patient's blood pressure 113/76, pulse 76, respirations are 16, temperature 98.2 degrees Fahrenheit and weight is 182 pounds. GENERAL: The patient is awake, alert, oriented, appropriate and very pleasant demeanor. HEENT: Head is normocephalic and atraumatic. Extraocular movements are intact and symmetrical. Oral cavity: Mucous membranes moist and pink. Dentition is intact. NECK: Shows anterior throat supple without palpable lymphadenopathy noted. Swallow reflex symmetrical. CHEST: Shows normal with inspection. Breath sounds are clear to auscultation bilaterally. HEART: Shows S1 and S2 clear. No murmurs auscultated. ABDOMEN: Soft, nontender and nondistended. No palpable organomegaly is noted. No rebound or guarding demonstrated. BACK: Shows spine grossly in the midline. Normal appearing thoracic kyphosis and lumbar lordotic curvature. Lumbar paraspinous muscle shows symmetrical on inspection, on palpation shows some moderate tenderness throughout the upper, middle, lower distribution of the paraspinous muscles. With rotation, the patient shows significant pain greater than 10 degrees, right and left, slightly more to the right and with extension shows significant pain as well bilaterally in the low back without radiation. This is decreased to a moderate extent with forward flexion 45 degrees with reduction of the pain significantly. EXTREMITIES: Lower extremities show deep tendon reflexes 2+ in the patellar, 1+ tendo-calcaneus tendons. Motor exam is strong with 5/5 dorsiflexion, extension, quadriceps and hamstring flexion. Peripheral pulses are 1+ posterior tibial. No peripheral edema is noted bilaterally. Options were discussed with the patient. The patient's old chart was reviewed as well as her current medication regimen updated. Current review of systems updated today as well. We will preauthorize the patient for additional bilateral lumbar facet joint injections as it has been 12 months as of November 01 this year that she has had 5 procedures and this will reset November 01, which is tomorrow. The patient is interested in doing this as she has gotten very good results in the past. Again, the patient's refill prescription for hydrocodone with instructions, side effects to be aware of discussed. The patient will follow up for lumbar facet joint injections, bilateral L4-L5 and L5-S1, still with significant axial loading pain in the low back is noted and we will follow up as scheduled. ROSITA RANGEL MD DR: ALYSSA/wayne JOB#: [id number] / [id number]
== END | disposition home or self-care (01) ==
LOC: PNCL 08:20
PROVIDERS: ATTEND Anesthesiology
DX: M51.36 Other intervertebral disc degeneration, lumbar region (principal); M47.897 Other spondylosis, lumbosacral region
CPT/HCPCS: 99212

== ENCOUNTER → 2017-12-04 | Outpatient (CLI) | payer OTHER ==
--- NOTE | 2017-12-04 21:49 | PAIN ---
DATE OF SERVICE: 12/04/2017 PROGRESS NOTE FOR PAIN CLINIC DIAGNOSES: 1. Lumbar spondylosis and lumbosacral spondylosis. 2. Lumbar degenerative disk disease at HISTORY OF PRESENT ILLNESS: The patient is a 37-year-old female who returns for followup status post radiofrequency ablation with lumbar medial branch as well as bilateral facet joint injections prior to that. The patient had about a 90% improvement from the radiofrequency ablation for just over 2 months following the procedure. The patient reports about 85-90% improvement for 4 weeks after the facet joint injections, and the pain has been returning now more recently since about October 2017. The patient would like to proceed with additional lumbar facet joint injections. She does very well and these are temporary and is having difficulty with having preauthorization performed with her insurance provider. The patient has been taking hydrocodone in the meantime, which she reports does help by about 75%, but is becoming less and less effective as time goes on. The patient reports still pain in the low back bilaterally, right essentially equal to left with walking, standing, bending, especially with extension and axial loading of the lumbar spine. It is keeping her awake from sleep at night. Reports pain is 8 on a scale of 10 at its worst, 7 on average, 6 at its least and is a 7 today, worse with standing, sitting, lying down. Again, wakes her from sleep. Initially, she was doing very well with increase in her activity, sitting for greater longer periods, was sleeping better at night. During that time, the radiofrequency was improved. The patient reports no new motor or sensory deficits, no new bowel or bladder incontinence. Describes the pain as aching and sharp, sometimes dull, cramping, stabbing, burning, becoming more constant, more radiating, more severe in the low back itself without specific radiation to lower extremities. PHYSICAL EXAMINATION: VITAL SIGNS: The patient's blood pressure is 110/69, pulse is 77, respirations 18, temperature is 98.6 degrees Fahrenheit. Height is 5 feet 4 inches, weight 163 pounds. GENERAL: The patient is awake, alert, oriented, appropriate, very pleasant demeanor. HEENT: Head shows normocephalic, atraumatic. Extraocular muscles are intact and symmetrical. Oral cavity shows mucous membranes moist and pink. Dentition is intact. NECK: Shows anterior throat supple without palpable lymphadenopathy noted. Swallow reflex symmetrical. CHEST: Shows normal on inspection. Breath sounds clear to auscultation bilaterally. HEART: Shows S1, S2 clear. No murmurs auscultated. ABDOMEN: Soft, nontender, nondistended. No palpable organomegaly is noted. No rebound or guarding demonstrated. BACK: Shows spine grossly in the midline with normal appearing thoracic kyphosis and some minor flattening of lumbar lordotic curvature. Lumbar paraspinous muscle shows symmetrical on inspection, with palpation shows some moderate tenderness, pain in the middle and lower distribution of paraspinous muscles only diffusely without radiation. The patient has rotational motion with significant pain with extension of the lumbar spine and axial loading in the low back with very severe pain bilaterally, right and left. This is better with forward flexion at 45 degrees. Right and left lateral rotation exacerbates the pain as well, but not to the severity that the extension does on the right and left. No tenderness over the spinous processes or the sacrum. Lower extremities show deep tendon reflexes 2+ in the patellar and tendo calcaneus tendons are 1+ and equal bilaterally. Motor exam is 5/5 with dorsiflexion and extension. Peripheral pulses are 1+ posterior tibial. No peripheral edema is noted. Options were discussed with the patient. The patient's old chart was reviewed as her current medication regimen updated. Current review of systems updated today as well and we will preauthorize the patient for repeat lumbar facet joint injections. She has significant axial loading pain in the low back consistent with lumbar and lumbosacral spondylosis and has done very well with these in the past as well as doing well with radiofrequency ablation for a few months after that as well with about 90% improvement overall. The patient was given instruction as well as side effects to be aware of with the medication, hydrocodone 7.5 mg and we will follow up as scheduled. ROSITA RANGEL MD DR: ALYSSA/wayne JOB#: [id number] / [id number]
== END | disposition home or self-care (01) ==
LOC: PNCL 08:56
PROVIDERS: ATTEND Anesthesiology
DX: M51.36 Other intervertebral disc degeneration, lumbar region (principal); M47.896 Other spondylosis, lumbar region; M47.897 Other spondylosis, lumbosacral region
CPT/HCPCS: 99212

== ENCOUNTER → 2017-12-25 | Outpatient (CLI) | payer OTHER ==
--- NOTE | 2017-12-25 09:13 | PAIN ---
DATE OF SERVICE: 12/25/2017 PROGRESS NOTE FOR PAIN CLINIC DIAGNOSES: Lumbar degenerative disk disease with lumbar and lumbosacral spondylosis. HISTORY OF PRESENT ILLNESS: The patient is a 37-year-old female who returns for followup status post radiofrequency ablation as well as bilateral facet joint blocks. The patient had excellent results with the most recent facet joint block and radiofrequency, which was on 07/25/2017. The patient had 90% improvement for approximately 14 weeks following the procedure. The patient had some pain beginning to return now. It has been over 3 months since she was having any difficulty, but with additional discussion today, we determined that it was at least 12 weeks as she had increased ability to walk, stand, change positions, she was functioning normally getting out of a car, traveling. She is very busy with her son's sport activities and travels quite a bit, also sits on a lot of hard bleachers during these times. She was increasing distance walking, returning to work activities with greater ease and comfort and sitting more comfortably. This has begun to return now since the initial 3 months of pain relief with pain in the low back bilaterally, becoming worse fairly rapidly. The patient reports increasing with extension and axial loading of the lumbar spine, better with forward flexion. Right and left lateral rotation causes some axial loading as well, slightly worse on the right than the left, but present bilaterally with rotation and motion of the lumbar spine, especially extension and axial loading is noted. The patient reports the pain is an 8 on a scale of 10 at its worst, 7 on average, is 6 at its least and is an 8 today. The patient reports it is aching, tight, becoming more severe, more constant, more stabbing as well in the back with extension and sitting for prolonged periods. The patient reports it is becoming much more noticeable. It does not radiate to the lower extremities. The patient reports it awakens her from sleep at least 2-3 times at night with lying on her right side, left side on her back is becoming more difficult, did tolerate just the past few weeks. The patient reports no new motor or sensory deficits, no new bowel or bladder incontinence or other complaints. PHYSICAL EXAMINATION: VITAL SIGNS: The patient's blood pressure is 116/71, pulse 81, respirations 16, temperature 98.2 degrees Fahrenheit. Height is 5 feet 4 inches, weight is 184 pounds. GENERAL: The patient is awake, alert, oriented, appropriate, very pleasant demeanor. HEENT: Head is normocephalic, atraumatic. Extraocular movements are intact and symmetrical. Oral cavity: Mucous membranes moist and pink. Dentition is intact. NECK: Shows anterior throat supple without palpable lymphadenopathy noted. Swallow reflex symmetrical. CHEST: Shows normal with inspection. Breath sounds clear to auscultation bilaterally. HEART: Shows S1, S2 clear. No murmurs auscultated. ABDOMEN: Soft, nontender, nondistended. No palpable organomegaly is noted. No rebound or guarding demonstrated. BACK: Shows spine grossly in the midline with normal appearing thoracic kyphosis and mild flattening of lumbar lordotic curvature. Lumbar paraspinous muscle shows symmetrical, but tender with palpation bilaterally diffusely in the low lumbar distribution of the paraspinous muscles. No radiation is demonstrated. The patient has good rotational motion with increased pain with right and left lateral rotation greater than 10 degrees, extension greater than 10 degrees, with axial loading, is significantly tender in the low back bilaterally, again slightly worse on the right than the left, but present bilaterally. Forward flexion decreases this pain to a moderate extent, but still somewhat painful at 45 degrees forward flexion, again much worse with extension. EXTREMITIES: The patient's lower extremities show deep tendon reflexes 2+ in the patellar, 1+ tendo calcaneus tendons. Motor exam is strong with 5/5 dorsiflexion, extension, quadriceps and hamstring flexion. Peripheral pulses are 1+ posterior tibial. No peripheral edema is noted bilaterally. Options were discussed with the patient. The patient's old chart was reviewed as her current medication regimen updated. Current review of systems updated today as well. We will preauthorize the patient for a repeat radiofrequency ablation as it will be 6 months from her previous one after 01/24/2018 coming up and she would like to look ahead and we will get her preauthorized for this again. She did very well initially with 90% plus improvement for about 14 weeks following the initial procedure, now coming back fairly rapidly over the past 2-3 weeks with axial loading, especially in the low back, more on the right than the left, again without radiation to the lower extremities. The patient will maintain her physical therapy exercises. She is also doing daily walking, although it is becoming more difficult for her. She is trying to do this as best she can. I have encouraged her to maintain her strengthening and stretching exercises that she has been doing. She is also taking Tylenol, Advil and we have prescribed hydrocodone. We will give her refill for this today. Also, with instructions, side effects to be aware of as well as Medrol Dosepak as these have helped temporarily in the past as well. Until we can get the preauthorization obtained, the patient's followup planned for approximately 1 month and plan on radiofrequency ablation of the bilateral L4-L5 and L5-S1 medial branches at that time as she has done very well with this in the past and would be 6 months by 01/24/2018. Again, the patient will continue with her exercise in the meantime and followup is scheduled. ROSITA RANGEL MD DR: ALYSSA/wayne JOB#: [id number] / [id number]
== END | disposition home or self-care (01) ==
LOC: PNCL 08:11
PROVIDERS: ATTEND Anesthesiology
DX: M51.36 Other intervertebral disc degeneration, lumbar region (principal); M47.896 Other spondylosis, lumbar region
CPT/HCPCS: 99212

== ENCOUNTER → 2018-01-24 | Outpatient (CLI) | payer OTHER ==
[~2018-01-24] MED LIST changes: -HYDR-2762 PO; +HYDR-2765 PO
--- NOTE | 2018-01-24 18:27 | PAIN ---
DATE OF SERVICE: 01/24/2018 PROGRESS NOTE FOR PAIN CLINIC DIAGNOSIS: Degenerative disk disease with lumbar and lumbosacral spondylosis. HISTORY OF PRESENT ILLNESS: The patient is a 37-year-old female who returns for followup status post previous radiofrequency ablation lumbar spine medial branches as well as facet joint injections. The patient had excellent results. Most recently, the facet joint injection produced 90% improvement for about 14 weeks following the procedure. Radiofrequency which was performed on 07/25/2017 did well with a 75% improvement initially for about 5 months, then reducing to about 60% improvement for another month and a half, so approximately 6-1/2 to 7 months of 60% or better improvement from the radiofrequency ablation itself. 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 The patient reports that it has been smoldering along, getting worse with time as it goes on. Before that, she was doing very well with greater ability to walk, stand, change positions, function normally, getting in and out of a car, traveling with greater comfort and ease. The patient reports she remains very busy with her children's sport activities, travels quite a bit, and also sitting on lot of hard surfaces and bleachers during these times, which has increased her pain. The patient reports increased pain with extension and flexion, axial loading of the lumbar spine, especially with extension, better with forward flexion, however. Right and left lateral rotation causes some axial loading as well, slightly worse on the right than the left, but present bilaterally with rotation and motion of the lumbar spine, especially extension. The patient reports pain is an 8 on a scale of 10 at its worst, 7 on average, 6 at its least and is an 8 today. The patient reports no new motor or sensory deficits, no new bowel or bladder incontinence or other complaints. PHYSICAL EXAMINATION: VITAL SIGNS: The patient's blood pressure is 143/81, pulse 79, respirations are 18, temperature is 98.2 degrees Fahrenheit, height is 5 feet 4 inches, weight is 188 pounds. GENERAL: The patient is awake, alert, oriented, appropriate, very pleasant demeanor. HEENT: Head shows normocephalic, atraumatic. Extraocular movements are intact and symmetrical. Oral cavity: Mucous membranes are moist and pink. Dentition is intact. NECK: Shows anterior throat supple without palpable lymphadenopathy noted. Swallow reflex is symmetrical. CHEST: Shows normal on inspection. Breath sounds are clear to auscultation bilaterally. HEART: Shows S1, S2 clear. No murmurs auscultated. ABDOMEN: Soft, nontender, nondistended. No palpable organomegaly is noted. No rebound or guarding demonstrated. BACK: Shows spine grossly in the midline. Normal appearing thoracic kyphosis and lumbar lordotic curvature with some minor flattening of lumbar lordotic curvature. Actually, lumbar paraspinous muscle shows symmetrical on inspection, on palpation shows some moderate tenderness diffusely throughout the middle and lower distribution of the paraspinous muscles, again with rotation. Extension is significantly increasing the pain, but not with forward flexion. EXTREMITIES: Lower extremities show deep tendon reflexes 2+ in the patellar and 1+ tendo calcaneus tendons. Motor exam is 5/5 with dorsiflexion, extension and equal bilaterally. Options were discussed with the patient. The patient's old chart was reviewed as her current medication regimen updated. Current review of systems updated today as well. We will preauthorize the patient for a bilateral L4-L5 and L5-S1 medial branch radiofrequency ablation as she has had excellent results with these in the past. The patient will continue with stretching and strengthening exercises, walking, heat and massage therapies as she is currently doing, taking Tylenol as well as Advil and we will represcribe the patient's hydrocodone 7.5 mg on a p.r.n. basis. The patient was given instructions as well as side effects to be aware of with the medication, will follow up as scheduled for radiofrequency ablation. ROSITA RANGEL MD DR: ALYSSA/wayne JOB#: [id number] / [id number]
== END | disposition home or self-care (01) ==
LOC: PNCL 12:51
PROVIDERS: ATTEND Anesthesiology
DX: M51.36 Other intervertebral disc degeneration, lumbar region (principal); M47.817 Spondylosis without myelopathy or radiculopathy, lumbosacral region; Z98.890 Other specified postprocedural states
CPT/HCPCS: G0463

== ENCOUNTER → 2018-02-21 | Outpatient (CLI) | payer BC ==
[~2018-02-21] MED LIST changes: +BUPIVACAINE MPF 0.25% 10 ML VIAL. ONE; +LIDOCAINE 1% PF 2 ML VIAL. ONE; +LIDOCAINE 2% PF Vial for OR 5 ML VIAL. ONE; +methylPREDNISolone ACETATE 40 MG/ML VIAL. ONE; +methylPREDNISolone ACETATE 80 MG/ML VIAL. ONE
--- NOTE | 2018-02-21 15:33 | PAIN ---
DATE OF SERVICE: 02/21/2018 PROGRESS NOTE FOR PAIN CLINIC DIAGNOSES: 1. Lumbar radiculopathy. 2. Lumbar spondylosis and lumbosacral spondylosis. HISTORY OF PRESENT ILLNESS: The patient is a 37-year-old female who returns for followup status post medial branch facet blocks as well as radiofrequency ablation in the past, most recently 07/25/2017. The patient did very well with each of these with 80-90% improvement for several months following the radiofrequency and for about 6 weeks following the diagnostic medial branch facet blocks. The patient reports the pain has returned now in the bilateral low back, right essentially equal to the left. The patient reports it is worse with standing for prolonged periods, walking, sitting for prolonged periods, greater than 30 minutes, sitting on hard surfaces, riding in a car. The patient describes an aching, tight, tingling, burning, stabbing, radiating across the back, becoming more constant and more severe. The patient reports it is a 9 on a scale of 10 at its worst, 8 on average and 6 at its least and is an 8 today. The patient was it awakened her from sleep about every 3-4 hours. Initially, she was doing much better with distance walking, doing work activities, household activities, recreational activities, traveling easier, now the pain returned fairly significantly over the past several months since about 12/2017. The patient reports no new motor or sensory deficits, no new bowel or bladder incontinence or other complaints. PHYSICAL EXAMINATION: VITAL SIGNS: The patient's blood pressure 134/81, pulse 78, respirations are 16, temperature 98.4 degrees Fahrenheit, height is 5 feet 3 inches, weighs 185 pounds. GENERAL: The patient is awake, alert, oriented, appropriate, very pleasant demeanor. HEENT: Head shows normocephalic, atraumatic. Extraocular movements are intact and symmetrical. Oral cavity: Mucous membranes moist and pink. Dentition is intact. NECK: Shows anterior throat supple without palpable lymphadenopathy noted. Swallow reflex symmetrical. CHEST: Shows normal with inspection. Breath sounds clear to auscultation bilaterally. HEART: Shows S1, S2 clear. No murmurs auscultated. ABDOMEN: Soft, obese, nontender, nondistended. No palpable organomegaly is noted. No rebound or guarding demonstrated. BACK: The patient's back shows spine grossly in the midline, normal appearing thoracic and lumbar lordotic curvature. Lumbar paraspinous muscle shows symmetrical on inspection, on palpation shows some moderate tenderness diffusely bilaterally, but only diffusely without significant radiation. The patient has no trigger points, no atrophy or hypertrophy; good rotation with significant tenderness with extension greater than 10 degrees in the low back, right equal to left. This is decreased significantly with forward flexion at 45 degrees, right and left lateral rotation procedures pain as well, but not as great as with just going extension posteriorly. EXTREMITIES: Lower extremities show deep tendon reflexes at 2+ in the patellar and 1+ tendo calcaneus tendons. Motor exam is strong with 5/5 dorsiflexion, extension, quadriceps and hamstring flexion and are symmetrical. Peripheral pulses are 2+ posterior tibia and no peripheral edema is noted bilaterally. PLAN: Options were discussed with the patient. The patient's old chart was reviewed as her current medication regimen updated. Current review of systems updated today as well. We will proceed with radiofrequency ablation to bilateral L4-L5 and L5-S1 facet medial branches. Risks were again discussed including, but not limited to bleeding, infection, possibility of epidural hematoma, subsequent neurologic compromise, dural puncture, headaches, spinal cord and/or nerve damage, potential thermal destruction of the motor nerves as well as permanent damage from surrounding tissues with thermal radiofrequency ablation and poor results regarding pain control. The patient understands and wished to proceed. The patient will return to clinic in approximately 4 weeks for followup. She was counseled as to return appointment, activity level and side effects to be aware of. The patient was given refill prescription for oxycodone as well as Sprix nasal inhaler with instructions and side effects to be aware of with each of these as well. DIAGNOSES: 1. Lumbar and lumbosacral spondylosis. 2. Degenerative disk disease. PROCEDURE: Bilateral radiofrequency ablation L4-L5 and L5-S1 medial branches under sterile prep and drape using local anesthetic using C-arm fluoroscopic guidance in both AP, lateral, and oblique views. MEDICATIONS INJECTED: A total of 6 mL of 2% lidocaine after motor testing and prior to radiofrequency ablation, total of 6 mL of 0.25% bupivacaine combined with a total of 120 mg Depo-Medrol after radiofrequency ablation. Please see radiofrequency ablation flow sheet for levels, times, impedances, temperatures, etc. CONDITION AT DISCHARGE: Stable. The patient tolerated procedure well, had no complications. ROSITA RANGEL MD DR: ALYSSA/wayne JOB#: [id number] / [id number]
== END | disposition home or self-care (01) ==
LOC: PNCL 13:03
PROVIDERS: ATTEND Anesthesiology
DX: M47.817 Spondylosis without myelopathy or radiculopathy, lumbosacral region (principal); M51.16 Intervertebral disc disorders with radiculopathy, lumbar region
CPT/HCPCS: 64635; 64636; J1030; J1040; J2001; J3490

== ENCOUNTER → 2018-03-21 | Outpatient (CLI) | payer BC ==
[~2018-03-21] MED LIST changes: -BUPIVACAINE MPF 0.25% 10 ML VIAL. ONE; -LIDOCAINE 1% PF 2 ML VIAL. ONE; -LIDOCAINE 2% PF Vial for OR 5 ML VIAL. ONE; -methylPREDNISolone ACETATE 40 MG/ML VIAL. ONE; -methylPREDNISolone ACETATE 80 MG/ML VIAL. ONE
--- NOTE | 2018-03-21 11:17 | PAIN ---
DATE OF SERVICE: 03/21/2018 PROGRESS NOTE FOR PAIN CLINIC DIAGNOSES: Lumbar degenerative disk disease, lumbar radiculopathy with lumbar and lumbosacral spondylosis. HISTORY OF PRESENT ILLNESS: The patient is a 37-year-old female who returns for followup status post most recent radiofrequency ablation of bilateral L4-L5 and L5-S1 levels on 02/21/2018. The patient did very well, reports about 90% improvement after the injection, but she fell on ice about a week ago, fell on to her left hip, which caused some increased pain in her back and her hip primarily. The patient reports the pain is 7 on a scale of 10 at its worst, 5 on average and 3 at its least. It has been gradually getting better slowly over the past week, but very gradually. She is having problem with weightbearing, standing, walking, changing positions especially climbing stairs to the left side. The patient reports it is aching, sharp, dull and radiating at times into the posterior gluteus, posterior thigh as well as into the lateral anterior groin on the left side. The patient reports it keeps her awake from sleep occasionally, but usually does not awaken unless she sleeps on her left side here recently. The patient reports no new motor or sensory deficits. Otherwise, she is doing very well after the radiofrequency ablation with 90% improvement. Right side is still doing very well. The patient reports she is increasing activity of walking, work activities, household activities, sitting, sleeping and excising all with better ease and comfort prior to the fall. PHYSICAL EXAMINATION: VITAL SIGNS: The patient's blood pressure 119/78, pulse 98, respirations 16, temperature 98.4 degrees Fahrenheit, height is 5 feet 4 inches, weight is 183 pounds. GENERAL: The patient is awake, alert, oriented, appropriate, very pleasant demeanor. HEENT: Head shows normocephalic, atraumatic. Extraocular movements intact and symmetrical. Oral cavity: Mucous membranes moist and pink. NECK: Shows anterior throat supple. CHEST: Shows normal with inspection. Breath sounds are clear bilaterally. HEART: Shows S1, S2 clear. ABDOMEN: Soft, nontender, nondistended. BACK: Shows spine grossly in the midline. Lumbar paraspinous muscle shows symmetrical on inspection, with palpation shows some moderate tenderness diffusely in the left side only, but only very mildly in the paraspinous muscles without radiation. The patient has good rotational motion with much better improvement in extension and axial loading in the low back with very minimal pain and good forward flexion at 45 degrees without difficulty. The patient shows good rotation right and left lateral at 10 degrees without difficulty as well. The patient's left sacroiliac shows some mild tenderness with palpation as well as the posterior superior iliac spine on the left side, but not the right, which is nontender. EXTREMITIES: The patient's lower extremities show deep tendon reflexes 2+ in the patellar, 1+ tendo calcaneus tendons. Motor exam is strong with 5/5 dorsiflexion and extension bilaterally. PLAN: Options were discussed with the patient. The patient's old chart was reviewed as her current medication regimen updated. Current review of systems updated today as well. We will treat conservatively with Medrol Dosepak as well as refill for hydrocodone. The patient was given instruction as well as side effects to be aware of each of the medications, also showed some stretching exercises to do with the left hip and sacroiliac region and she would try this in the meantime as well as heat and ice applications. The patient will return to the clinic in approximately 2 weeks or as necessary. ROSITA RANGEL MD DR: ALYSSA/wayne JOB#: [id number] / [id number]
== END | disposition home or self-care (01) ==
LOC: PNCL 08:45
PROVIDERS: ATTEND Anesthesiology
DX: M51.16 Intervertebral disc disorders with radiculopathy, lumbar region (principal); M47.26 Other spondylosis with radiculopathy, lumbar region; M47.27 Other spondylosis with radiculopathy, lumbosacral region
CPT/HCPCS: G0463

== ENCOUNTER → 2018-05-28 | Outpatient (CLI) | payer BC ==
[~2018-05-28] MED LIST changes: +BUPIVACAINE MPF 0.25% 10 ML VIAL. ONE; +IOHEXOL 180 MG/ML 10 ML VIAL. ONE; +methylPREDNISolone ACETATE 40 MG/ML VIAL. ONE; +methylPREDNISolone ACETATE 80 MG/ML VIAL. ONE
--- NOTE | 2018-05-29 00:16 | PAIN ---
DATE OF SERVICE: 05/28/2018 PROGRESS NOTE FOR PAIN CLINIC DIAGNOSIS: Lumbar degenerative disk disease with lumbar and lumbosacral spondylosis. HISTORY OF PRESENT ILLNESS: The patient is a 37-year-old female who returns for followup status post radiofrequency ablation on 02/21/2018. She has done very well with about 90% improvement. The patient reports that she fell on some ice back in March, but after a few weeks following that, the pain was doing better, now the pain is returning in the low back bilaterally, somewhat worse on the right than the left. It is worse with standing, walking, changing positions, sitting for prolonged periods and increased activity. The patient reports she has difficult time getting comfortable at this point. She is sleeping better at night, but it does awaken her from sleep when she changes positions. The patient reports the pain is a 5 on a scale of 10 at its worst, 3 on average, 2 at its least over the past week and is a 3 today. The patient reports it is aching, sharp, burning, cramping, stabbing without radiation to lower extremities. The patient reports it is worse with sitting for prolonged periods, also with extension of the lumbar spine and axial loading at the low back. The patient reports it is starting to come back slightly, initially about 90% improved, now is about 80% improvement overall. She would like to get ahead of the pain. She has a lot of events with her son going on this time of year with his sporting and competitions and she is on hard bleachers, walking a lot and standing on her feet a lot to do these activities. The patient reports no new motor or sensory deficits, no new bowel or bladder incontinence or other complaints. PHYSICAL EXAMINATION: VITAL SIGNS: The patient's blood pressure is 115/83, pulse 81, respirations 18, temperature is 98.1 degrees Fahrenheit. Height is 5 feet 4 inches and weight is 184 pounds. GENERAL: The patient is awake, alert, oriented, appropriate, very pleasant demeanor. HEENT: Head shows normocephalic, atraumatic. Extraocular movements are intact and symmetrical. Oral cavity: Mucous membranes are moist and pink. Dentition is intact. NECK: Shows anterior throat supple without palpable lymphadenopathy noted. Swallow reflex symmetrical. CHEST: Shows normal with inspection. Breath sounds clear to auscultation bilaterally. HEART: Shows S1, S2 clear. No murmurs auscultated. ABDOMEN: Soft, nontender, nondistended. No palpable organomegaly is noted. No rebound or guarding demonstrated. BACK: Shows spine grossly in the midline. Normal appearing thoracic kyphosis, some minor flattening of lumbar lordotic curvature. Lumbar paraspinous muscle shows symmetrical on inspection, on palpation shows some moderate tenderness throughout the upper, middle and lower distributions of paraspinous muscles bilaterally, slightly worse on the right than the left and more tender with palpation on the right side. The patient shows good rotational motion with moderate tenderness with right lateral rotation greater than left at 10 degrees or more, extension 10 degrees shows significant tenderness bilaterally, better with forward flexion at 45 degrees. EXTREMITIES: The patient's lower extremities show deep tendon reflexes 2+ in the patellar and 1+ in the tendo calcaneus tendons. Motor exam is strong with 5/5 dorsiflexion, extension, quadriceps and hamstring flexion and symmetrical. Peripheral pulses are 1+ posterior tibia. No peripheral edema is noted bilaterally. Options were discussed with the patient. The patient's old chart was reviewed as her current medication regimen updated. Current review of systems updated today as well. We will proceed with bilateral L4-L5 and L5-S1 facet joint injections using C-arm fluoroscopic guidance. Risks were again discussed including, but not limited to, bleeding, infection, possibility of epidural hematoma, subsequent neurologic compromise, dural puncture, headaches, spinal cord and/or nerve damage, side effects of steroid medication and poor results regarding pain control. The patient understands and wished to proceed. The patient will return to clinic in approximately 2 weeks for followup. She was counseled as to return appointment, activity level and side effects to be aware of. DIAGNOSIS: Lumbar and lumbosacral spondylosis. PROCEDURE: Bilateral L4-L5 and L5-S1 facet joint injections using C-arm fluoroscopic guidance under sterile prep and drape using local anesthetic. MEDICATION INJECTED: A total of 120 mg of Depo-Medrol plus 4 mL of 0.25% bupivacaine and 2 mL of contrast. CONDITION AT DISCHARGE: Stable. The patient tolerated the procedure well, had no complications. ROSITA RANGEL MD DR: ALYSSA/wayne JOB#: [id number] / [id number]
== END | disposition home or self-care (01) ==
LOC: PNCL 08:58
PROVIDERS: ATTEND Anesthesiology
DX: M47.817 Spondylosis without myelopathy or radiculopathy, lumbosacral region (principal); M51.36 Other intervertebral disc degeneration, lumbar region
CPT/HCPCS: 64493; 64494; J1030; J1040; J3490; Q9965

== ENCOUNTER → 2018-07-26 | Outpatient (CLI) | payer BC ==
--- NOTE | 2018-07-26 10:48 | PAIN ---
DATE OF SERVICE: 07/26/2018 DIAGNOSES: Lumbar degenerative disk disease, lumbar spondylosis and lumbosacral spondylosis. HISTORY OF PRESENT ILLNESS: The patient is a 37-year-old female who returns for followup status post lumbar facet joint injections, most recently 05/28/2018. The patient did very well with about 85% improvement initially, now is down to about 50% improvement in the back with pain in the low back bilaterally, in the small of the back, worse with walking, standing, change in positions, sitting for prolonged periods, awakens her from sleep about every 3-7 hours at times, but not every night. The patient reports no loss of motor function. She initially did very well with increased activity, walking and doing activities, sitting, greater distances walking and traveling greater distances, but now the pain is returning. The patient reports over the past week, is a 7 on a scale of 10 at its worse, 5 on average and 3 at its least and is a 5 today. The patient reports it is aching, sharp, dull, tight, stabbing, burning at times in the low back and aching, worse with extension of the lumbar spine and with prolonged sitting. The patient reports no new motor or sensory deficits, no new bowel or bladder incontinence or other complaints. PHYSICAL EXAMINATION: VITAL SIGNS: The patient's blood pressure is 120/86, pulse 79, respirations 16, temperature is 98.0 degrees Fahrenheit, weight is 182 pounds. GENERAL: The patient is awake, alert, oriented, appropriate, very pleasant demeanor. HEENT: Shows normocephalic and atraumatic. Extraocular movements are intact and symmetrical. Oral cavity: Mucous membranes are moist and pink. Dentition is intact. NECK: Shows anterior throat supple without palpable lymphadenopathy noted. Swallow reflex is symmetrical. CHEST: Shows normal on inspection. Breath sounds are clear to auscultation bilaterally. HEART: Shows S1, S2 clear. No murmurs auscultated. ABDOMEN: Soft, nontender, nondistended. BACK: Shows spine grossly in the midline. Normal appearing thoracic kyphosis and lumbar lordotic curvature. Lumbar paraspinous muscle shows symmetrical on inspection. On palpation shows some moderate tenderness bilaterally, but only diffusely without radiation. The patient does show good rotational motion of the lumbar spine both laterally greater than 10 degrees right and left, but with some moderate tenderness, more to the left than the right with rotation and extension at 10 degrees shows significant pain in the low back bilaterally, again worse on the left than the right, but present bilaterally. It is decreased and almost completely relieved with forward flexion at 45 degrees. EXTREMITIES: Lower extremities show deep tendon reflexes 2+ in the patellar and tendo calcaneus show 1+. Motor exam is strong with 5/5 dorsiflexion, extension and equal. Peripheral pulses are 1+ posterior tibia. No peripheral edema is noted bilaterally. Options were discussed with the patient. The patient's old chart was reviewed as was her current medication regimen updated. Current review of systems updated today as well. We will proceed with bilateral L4-L5 and L5-S1 facet joint injections using C-arm fluoroscopic guidance. Risks were again discussed including, but not limited to bleeding, infection, possibility of epidural hematoma, subsequent neurological compromise, dural puncture, headaches, spinal cord and/or nerve damage, side effects of steroid medication and poor results regarding pain control. The patient understands and wished to proceed. The patient will return to the clinic in approximately 2 weeks for followup, was counseled on return appointment, activity level and side effects to be aware of. DIAGNOSIS: Lumbar and lumbosacral spondylosis. PROCEDURES: Bilateral L4-L5 and L5-S1 facet joint injections using C-arm fluoroscopic guidance under sterile prep and drape using local anesthetic. MEDICATION INJECTED: A total of 120 mg Depo-Medrol plus total of 4 mL of 0.25% bupivacaine and 2 mL of contrast. CONDITION AT DISCHARGE: Stable. The patient tolerated the procedure well, had no complications. ROSITA RANGEL MD DR: ALYSSA/wayne JOB#: [id number] / [id number]
== END ==
LOC: PNCL 08:02
PROVIDERS: ATTEND Anesthesiology
DX: M47.817 Spondylosis without myelopathy or radiculopathy, lumbosacral region (principal); M51.36 Other intervertebral disc degeneration, lumbar region
CPT/HCPCS: 64493; 64494; J1030; J1040; J3490; Q9965

== ENCOUNTER → 2018-08-13 | Outpatient (CLI) | payer BC ==
[~2018-08-13] MED LIST changes: -BUPIVACAINE MPF 0.25% 10 ML VIAL. ONE; -IOHEXOL 180 MG/ML 10 ML VIAL. ONE; -methylPREDNISolone ACETATE 40 MG/ML VIAL. ONE; -methylPREDNISolone ACETATE 80 MG/ML VIAL. ONE
--- NOTE | 2018-08-13 10:45 | PAIN ---
DATE OF SERVICE: 08/13/2018 DIAGNOSES: Lumbar degenerative disk disease, lumbar spondylosis and lumbosacral spondylosis. HISTORY OF PRESENT ILLNESS: The patient is a 37-year-old female who returns for followup status post bilateral facet joint injection at L4-L5 and L5-S1, this was on 07/26. The patient returns reporting 85% improvement, doing quite well, still with some good improvement even several weeks later in the low back. The patient reports pain is beginning to return, but only slowly, more noticeable with prolonged sitting as well as rotation of motion, especially extension of the lumbar spine, which she feels the pain in the low back bilaterally, essentially equal right and left. The patient reports it is a 6 on a scale of 10 at its worst in the past week, 2 on an average, 1 at its least and is a 2 today. The patient reports no new motor or sensory deficits, no new bowel or bladder incontinence or other complaints. She is doing quite a bit better, sleeping better at night, increasing her activity, distance walking and doing household activities as well as traveling with greater ease and comfort. The patient reports no new changes. PHYSICAL EXAMINATION: VITAL SIGNS: The patient's blood pressure is 126/78, pulse 78, respirations 18, temperature 98.4 degrees Fahrenheit, height is 5 feet 4 inches and weight is 184 pounds. GENERAL: The patient is awake, alert, oriented, appropriate, very pleasant demeanor. HEENT: Head is normocephalic, atraumatic. Extraocular movements are intact and symmetrical. Oral cavity: Mucous membranes moist and pink. Dentition is intact. NECK: Shows anterior throat supple without palpable lymphadenopathy noted. Swallow reflex is symmetrical. CHEST: Shows normal on inspection. Breath sounds clear to auscultation bilaterally. HEART: Shows S1, S2 clear. No murmurs auscultated. ABDOMEN: Soft, nontender, nondistended. No palpable organomegaly is noted. No rebound or guarding demonstrated. BACK: Shows spine grossly in the midline. Normal appearing thoracic kyphosis and some minor flattening of lumbar lordotic curvature. Lumbar paraspinous muscle shows symmetrical on inspection. On palpation shows some moderate tenderness, but only diffusely bilaterally, but with rotational motion shows some increased pain with right and left lateral rotation past 10 degrees and especially with extension and axial loading of the lumbar spine, better with forward flexion with pain is actually decreased. The patient reports no radiation of pain with these maneuvers. EXTREMITIES: The patient's lower extremities show deep tendon reflexes at 2+ in the patellar, 1+ tendo-calcaneus tendons. Motor exam is strong with 5/5 dorsiflexion, extension and symmetrical as well. Peripheral pulses are 1+ posterior tibia. No peripheral edema is noted. Options were discussed with the patient. The patient's old chart was reviewed, as her current medication regimen updated. Current review of systems updated today as well, and we will schedule the patient for radiofrequency ablation as she has done very well with these in the past, most recently performed on 02/21/2018 with 90+ % improvement. Again, doing much better after the lumbar facet joint injections. We will schedule this for next month pending return of any symptoms. If the patient is doing well, we will postpone this further also, but at this point, we will schedule for radiofrequency ablation, bilateral L4-L5 and L5-S1 medial branches. ROSITA RANGEL MD DR: ALYSSA/wayne JOB#: [id number] / [id number]
== END | disposition home or self-care (01) ==
LOC: PNCL 08:52
PROVIDERS: ATTEND Anesthesiology
DX: M51.36 Other intervertebral disc degeneration, lumbar region (principal); M47.817 Spondylosis without myelopathy or radiculopathy, lumbosacral region
CPT/HCPCS: G0463

== ENCOUNTER → 2018-10-15 | Outpatient (CLI) | payer BC ==
[~2018-10-15] MED LIST changes: +BUPIVACAINE MPF 0.25% 10 ML VIAL. ONE; +LIDOCAINE 1% PF 2 ML VIAL. ONE; +LIDOCAINE 2% PF 5 ML VIAL. ONE; -TIZA4TAB PO; +TIZA4TAB2 PO; +methylPREDNISolone ACETATE 40 MG/ML VIAL. ONE; +methylPREDNISolone ACETATE 80 MG/ML VIAL. ONE
--- NOTE | 2018-10-16 14:41 | PAIN ---
DATE OF SERVICE: 10/15/2018 PROGRESS NOTE FOR PAIN CLINIC DIAGNOSIS: Lumbar degenerative disk disease with lumbar and lumbosacral spondylosis. HISTORY OF PRESENT ILLNESS: The patient is a 38-year-old female who returns for followup status post lumbar facet joint injections with very good response about 85% plus improvement. The patient returns now as rescheduled her for radiofrequency ablation she did very well with this in the past as well with near 90% improvement, most recently this was done on 02/21/2018. The patient reports the pain has been returning now over the past month or two, getting worse since about July of this year. The patient reports no new motor or sensory deficits, no new bowel or bladder incontinence, still significant pain in the low back bilaterally, slightly worse on the left than the right, but present bilaterally. The patient reports that it is 7 on a scale of 10 at its worst, 5 on average and 3 at its least and is a 3 today. The patient reports no new motor or sensory deficits, no new bowel or bladder incontinence. The patient reports it does awaken her from sleep very rarely, better with off her feet when she is off her feet, sitting, lying down, but with walking, standing, changing positions, even prolonged sitting can exacerbate the pain significantly, especially with extension and axial loading of the lumbar spine. The patient reports it is radiating, constant, severe aching, tight in the low back itself. PHYSICAL EXAMINATION: VITAL SIGNS: The patient's blood pressure is 164/74, pulse 81, respirations are 18, temperature 98.2 degrees Fahrenheit, height is 5 feet 4 inches, weight is 182 pounds. GENERAL: The patient is awake, alert, oriented, appropriate, very pleasant demeanor. HEENT: Head is normocephalic, atraumatic. Extraocular movements are intact and symmetrical. Oral cavity: Mucous membranes moist and pink. Dentition is intact. NECK: Shows anterior throat supple without palpable lymphadenopathy noted. Swallow reflex symmetrical. CHEST: Shows normal on inspection. Breath sounds clear to auscultation bilaterally. HEART: Shows S1, S2 clear. No murmurs auscultated. ABDOMEN: Soft, nontender, nondistended. No palpable organomegaly is noted. No rebound or guarding demonstrated. BACK: Shows spine grossly in the midline. Normal appearing thoracic kyphosis and minor flattening of lumbar lordotic curvature. Lumbar paraspinous muscle shows symmetrical on inspection, with palpation shows some moderate tenderness diffusely bilaterally, but only diffusely without significant radiation. The patient has good rotational motion both laterally with some moderate tenderness, especially with extension of the lumbar spine, greater than 10 degrees is more significant tenderness in the low back itself, but without specific radiation to lower extremity forward flexion decreases the pain and is performed fully at 45 degrees without difficulty. EXTREMITIES: Lower extremities show deep tendon reflexes at 2+ in the patellar, 1+ tendo-calcaneus tendons. Motor exam is strong with 5/5 dorsiflexion and extension bilaterally. Peripheral pulses are 1+ posterior tibia. No peripheral edema is noted. Options were discussed with the patient. The patient's old chart was reviewed as her current medication regimen updated. Current review of systems updated today as well. We will proceed with bilateral L4-L5 and L5-S1 medial branch radiofrequency ablation. Risks were again discussed including, but not limited to bleeding, infection, possibility of epidural hematoma, subsequent neurologic compromise, dural puncture, headache, spinal cord and/or nerve damage, side effects of steroid medication, exposure to fluoroscopy, potential thermal damage and permanent ischemic thermal damage to surrounding tissues as well as the nerve roots themselves with permanent motor deficit as well as poor results regarding pain control. The patient understands and wished to proceed. The patient will return to clinic in approximately 4 weeks for followup. She was counseled as to return appointment, activity level and side effects to be aware of. DIAGNOSES: Lumbar and lumbosacral spondylosis. PROCEDURE: Lumbar bilateral L4-L5 and L5-S1 medial branch radiofrequency ablation under sterile prep and drape using local anesthetic. MEDICATION INJECTED: The patient received a total of 6 mL of 2% lidocaine after motor testing at each level, 1 mL per level. After motor testing and prior to radiofrequency ablation also total of 6 mL of 0.25% bupivacaine after radiofrequency ablation, 1 mL per level with 120 mg total Depo-Medrol. Please see radiofrequency flow chart for levels, impedances, temperatures, duration, etc. CONDITION AT DISCHARGE: Stable. The patient tolerated procedure well, had no immediate complications and was discharged in good stable condition under her own power. ROSITA RANGEL MD DR: ALYSSA/wayne JOB#: [id number] / [id number]
== END ==
LOC: PNCL 12:48
PROVIDERS: ATTEND Anesthesiology
DX: M47.817 Spondylosis without myelopathy or radiculopathy, lumbosacral region (principal); M51.36 Other intervertebral disc degeneration, lumbar region
CPT/HCPCS: 64635; 64636; J1030; J1040; J2001; J3490

== ENCOUNTER → 2019-01-17 | Outpatient (CLI) | payer BC ==
[~2019-01-17] MED LIST changes: +IOHEXOL 180 MG/ML 10 ML VIAL. ONE; -LIDOCAINE 1% PF 2 ML VIAL. ONE; -LIDOCAINE 2% PF 5 ML VIAL. ONE
--- NOTE | 2019-01-17 10:02 | PAIN ---
DATE OF SERVICE: 01/17/2019 PROGRESS NOTE FOR PAIN CLINIC DIAGNOSES: Lumbar degenerative disk disease with lumbar and lumbosacral spondylosis. HISTORY OF PRESENT ILLNESS: The patient is a 38-year-old female who returns for followup status post radiofrequency ablation on 10/15/2018. The patient did very well with about 90% improvement for the first 2 months. She has been increasing her activity, though traveling quite a bit following her son's sporting events and has been sitting on lot of uncomfortable seat and positions throughout and the pain is beginning to return now in the low back bilaterally, slightly worse on the left than the right. The patient reports it is an 8 on a scale of 10 at its worst over the past week, 6 on average, 3 at its least and is a 3 today. The patient reports it is aching, sharp, cramping, stabbing, burning at times, sometimes severe. It awakens her from sleep about every 6-7 hours. Initially though she is doing much better distance walking, doing household activities, work activities, sleeping, traveling with greater ease and comfort, but the pain is beginning to return now and she feels that she may have "overdone it." No new motor or sensory deficits, no bowel or bladder incontinence or other complaints. PHYSICAL EXAMINATION: VITAL SIGNS: The patient's blood pressure 130/84, pulse 80, respirations 16, temperature 97.8 degrees Fahrenheit, height is 5 feet 4 inches, and weight is 192 pounds. GENERAL: The patient is awake, alert, oriented, appropriate, very pleasant demeanor. HEENT: Head shows normocephalic, atraumatic. Extraocular movements are intact and symmetrical. Oral cavity: Mucous membranes moist and pink. Dentition is intact. NECK: Shows anterior throat supple without palpable lymphadenopathy noted. Swallow reflex symmetrical. CHEST: Shows normal on inspection. Breath sounds clear to auscultation bilaterally. HEART: Shows S1, S2 clear. No murmurs auscultated. ABDOMEN: Soft, nontender, nondistended. No palpable organomegaly is noted. No rebound or guarding demonstrated. BACK: Shows spine grossly in the midline. Normal appearing thoracic kyphosis and lumbar lordotic curvature. Lumbar paraspinous muscle shows symmetrical on inspection, with palpation shows some moderate tenderness diffusely bilaterally in the low lumbar distribution, more on the left than the right, but appears symmetrical without evidence of atrophy or hypertrophy. The patient shows good range of motion with some moderate tenderness with left lateral rotation past 10 degrees, mild tenderness past 10 degrees on the right side. Extension of the lumbar spine, however, has significant pain more in the left than the right, but present bilaterally without radiation and forward flexion at 45 degrees ____. EXTREMITIES: Lower extremities show deep tendon reflexes 2+ in the patellar, 1+ tendo-calcaneus tendons. Motor exam is strong with 5/5 dorsiflexion, extension, quadriceps and hamstring flexion symmetrical. Peripheral pulses are 1+ posterior tibia. No peripheral edema is noted. Options were discussed with the patient. The patient's old chart was reviewed as her current medication regimen updated. Current review of systems updated today as well. We will proceed with bilateral L4-L5 and L5-S1 facet joint injections with fluoroscopic guidance. Risks were again discussed including, but not limited to bleeding, infection, possibility of epidural hematoma, subsequent neurological compromise, dural puncture, headaches, spinal cord and/or nerve damage, side effects of steroid medication, exposure to fluoroscopy and poor results regarding pain control. The patient understands and wished to proceed. The patient will return to clinic in approximately 2 weeks for followup. She was counseled on return appointment, activity level and side effects to be aware of. The patient was given refill prescription for hydrocodone 7.5 mg 75 tablets total with instructions, side effects to be aware of discussed as well. The patient will return to clinic as scheduled. DIAGNOSIS: Lumbar and lumbosacral spondylosis. PROCEDURE: Bilateral L4-L5 and L5-S1 facet joint injections using C-arm fluoroscopic guidance under sterile prep and drape using local anesthetic. MEDICATION INJECTED: A total of 4 mL of 0.25% bupivacaine, 120 mg Depo-Medrol and 2 mL of contrast. CONDITION AT DISCHARGE: Stable. The patient tolerated the procedure well, had no complications. ROSITA RANGEL MD DR: ALYSSA/wayne JOB#: [id number] / [id number]
== END ==
LOC: PNCL 07:58
PROVIDERS: ATTEND Anesthesiology
DX: M47.817 Spondylosis without myelopathy or radiculopathy, lumbosacral region (principal); M51.36 Other intervertebral disc degeneration, lumbar region
CPT/HCPCS: 64493; 64494; J1030; J1040; J3490; Q9965

== ENCOUNTER → 2019-03-19 | Outpatient (CLI) | payer BC ==
[~2019-03-19] MED LIST changes: -BUPIVACAINE MPF 0.25% 10 ML VIAL. ONE; -IOHEXOL 180 MG/ML 10 ML VIAL. ONE; -methylPREDNISolone ACETATE 40 MG/ML VIAL. ONE; -methylPREDNISolone ACETATE 80 MG/ML VIAL. ONE
--- NOTE | 2019-03-20 00:17 | PAIN ---
DATE OF SERVICE: 03/19/2019 PROGRESS NOTE FOR PAIN CLINIC DIAGNOSES: Lumbar degenerative disk disease with lumbar and lumbosacral spondylosis. HISTORY OF PRESENT ILLNESS: The patient is a 38-year-old female who returns for followup status post lumbar facet joint injections as well as previous radiofrequency ablation back in 10/2018. Bilateral facet injection was on 01/17/2019. The patient reports she did very well with about 85% improvement after the injections for about 7 weeks after the injection. The patient reports she fell after that time, but the pain has been increasing now in the low back, especially on the left side after she fell about a week ago. The patient reports it is awakening her from sleep now about every 2-1/2 hours after she fell. Pain in the low back itself, not radiating into the lower extremities. The patient reports it is worse with walking, standing, changing positions, sitting for more than 10-15 minutes, can bother the pain as well and increase it. The patient reports it is stabbing, aching, sharp, tight and shooting across the low back and becoming more severe. The patient reports it is an 8 on a scale of 10 at its worst over the past week, 6-1/2 on average and a 4 on a scale of 10 at its least and is a 6 today. The patient reports no new motor or sensory deficits, no new bowel or bladder incontinence. No radiation into the lower extremities, but significant pain, especially with rotation and motion of the lumbar spine, more to the left than the right and with extension, but present across the low back bilaterally. PHYSICAL EXAMINATION: VITAL SIGNS: The patient's blood pressure 118/80, pulse is 98, temperature 98.9 degrees Fahrenheit, respirations 18, height is 5 feet 4 inches. GENERAL: The patient is awake, alert, oriented, appropriate, very pleasant demeanor. HEENT: Shows normocephalic, atraumatic. Extraocular movements are intact and symmetrical. Oral cavity, mucous membranes moist and pink. Dentition is intact. NECK: Shows anterior throat supple without palpable lymphadenopathy noted. Swallow reflex symmetrical. CHEST: Shows normal on inspection. Breath sounds are clear bilaterally. HEART: Shows S1, S2 clear. ABDOMEN: Soft, nontender, nondistended. BACK: Shows spine grossly in the midline. Normal appearing thoracic kyphosis. Some slight flattening of lumbar lordotic curvature. Lumbar paraspinous muscle shows symmetrical on inspection, on palpation shows some [id number] tenderness in the middle and lower distribution of the paraspinous muscles, greater on the left than the right. No bruising. No edema. No abnormalities noted. The patient shows increased pain with rotation of motion; however, greater than 10 degrees, especially to the left, but also to the right and with extension of the lumbar spine and axial loading of the low back, significant pain across the low back, again more pain noticed on the left, but present on the right, almost is equal. The patient has decreased pain with forward flexion at 45 degrees. EXTREMITIES: The patient's lower extremities show deep tendon reflexes at 2+ in the patellar, 1+ tendo-calcaneus tendons. Motor exam is 5/5 with dorsiflexion, extension, quadriceps and hamstring flexion and symmetrical. Peripheral pulses are 1+ posterior tibia. No peripheral edema is noted. Options were discussed with the patient. The patient's old chart was reviewed as her current medication regimen updated. Current review of systems updated today as well. We will preauthorize the patient for repeat radiofrequency ablation as it has been almost 6 months since her last ablation. She did very well with that as well with approximately 90% improvement after the ablation, again for several months following pain returning now significantly in the low back, more on the left than the right, but present bilaterally, worse with axial loading of the lumbar spine and without radiation to the lower extremities. The patient will be given Medrol Dosepak to try as well and refilled for the patient's hydrocodone 7.5 mg. The patient was given instruction as well as side effects to be aware of with each of the medications and will follow up in approximately 1 month as scheduled for radiofrequency ablation, bilateral L4-L5 and L5-S1 medial branches as previous. ROSITA RANGEL MD DR: ALYSSA/wayne JOB#: [id number] / [id number]
== END | disposition home or self-care (01) ==
LOC: PNCL 13:20
PROVIDERS: ATTEND Anesthesiology
DX: M51.36 Other intervertebral disc degeneration, lumbar region (principal); M47.817 Spondylosis without myelopathy or radiculopathy, lumbosacral region
CPT/HCPCS: G0463

== ENCOUNTER → 2019-04-17 | Outpatient (CLI) | payer BC ==
[~2019-04-17] MED LIST changes: +BUPIVACAINE MPF 0.25% 10 ML VIAL. ONE; +LIDOCAINE 1% PF 2 ML VIAL. ONE; +LIDOCAINE 2% PF 5 ML VIAL. ONE; +methylPREDNISolone ACETATE 40 MG/ML VIAL. ONE; +methylPREDNISolone ACETATE 80 MG/ML VIAL. ONE
--- NOTE | 2019-04-17 17:06 | RAD ---
Examination: HIP BILATERAL WITH PELVIS History: Hip pain Comparison/Correlation: None Findings: Frontal view of the pelvis was obtained. Frontal view of the right hip and frontal view of the left hip were provided. Bilateral frog leg lateral views were obtained. Sacroiliac and hip joints are symmetric. Joint spaces are adequate. No acute fracture or bone destruction. Soft tissues are unremarkable Impression: No suspicious process. Electronically signed by: Sebastian Crowder MD (04/17/2019 5:03 PM) [id number]
--- NOTE | 2019-04-17 23:58 | PAIN ---
DATE OF SERVICE: 04/17/2019 PROGRESS NOTE FOR PAIN CLINIC DIAGNOSES: Lumbar degenerative disk disease and lumbar and lumbosacral spondylosis. HISTORY OF PRESENT ILLNESS: The patient is a 38-year-old female who returns for followup status post facet joint injections and previous radiofrequency ablation. The patient did very well with her last facet injections, which was 01/17/2019 by 85% improvement for about 3 weeks after the injection. The patient reports that the pain began to return. She has been getting more active with work activities as well as the family activities and reports that her pain is increasing in the low back bilaterally without any radiation to lower extremities, but significant across the low back itself, worse with walking, standing, and changing positions; also having some pain in the left hip, which IS radiating to the left groin. The patient reports her pain in the back is 8 on a scale of 10, at its worst over the past week, 6 on average and 4 at its least and is a 4 today. The patient reports it is aching, becoming more severe, burning, cramping, and stabbing. The patient reports no new motor or sensory deficits, no new bowel or bladder incontinence or other complaints. PHYSICAL EXAMINATION: VITAL SIGNS: The patient's blood pressure is 130/89, pulse 83, respirations 18, temperature is 98.2 degrees Fahrenheit, height is 5 feet 4 inches, weighs 199 pounds. GENERAL: The patient is awake, alert, oriented, appropriate, very pleasant demeanor. HEENT: Shows normocephalic, atraumatic. Extraocular movements are intact and symmetrical. Oral cavity: Mucous membranes moist and pink. Dentition is intact. NECK: Shows anterior throat supple without palpable lymphadenopathy noted. Swallow reflex symmetrical. CHEST: Shows normal on inspection. Breath sounds are clear bilaterally. HEART: Shows S1, S2 clear. No murmurs auscultated. ABDOMEN: Soft, nontender, nondistended. BACK: Shows spine grossly in the midline. Normal appearing thoracic kyphosis and minor flattening of lumbar lordotic curvature. Lumbar paraspinous muscle shows symmetrical on inspection, on palpation shows some moderate tenderness diffusely bilaterally, but only diffusely without significant radiation. EXTREMITIES: The patient's lower extremities show deep tendon reflexes at 2+ patellar, 1+ tendo-calcaneus tendons. Motor exam is strong with 5/5 dorsiflexion, extension, quadriceps and hamstring flexion symmetrical. Peripheral pulses are 1+ posterior tibia. No peripheral edema is noted. The patient just still has some significant pain with rotation of the lumbar spine, both laterally greater than 10 degrees right and left as well as extension with much more significant pain at 10 degrees, better with forward flexion at 45 degrees without significant pain on forward flexion only. Options were discussed with the patient. The patient's old chart reviewed. Current medication regimen updated. Current review of systems updated today as well. We will proceed with bilateral L4-L5 and L5-S1 medial branch facet radiofrequency ablation today with fluoroscopic guidance. Risks were again discussed including, but not limited to bleeding, infection, possibility of epidural hematoma, subsequent neurological compromise, dural puncture, headaches, spinal cord and/or nerve damage, exposure to fluoroscopy as well as possible thermal damage to motor nerves with permanent ischemic and motor loss from thermal damage as well as poor results regarding pain control. The patient understands and wishes to proceed. The patient will return to the clinic in approximately 3 weeks for followup. She was counseled as to return appointment, activity level, and side effects to be aware of. DIAGNOSIS: Lumbar and lumbosacral spondylosis. PROCEDURE: Bilateral radiofrequency ablation medial branches at the L4-L5 and L5-S1 facets using C-arm fluoroscopic guidance under sterile prep and drape using local anesthetic. MEDICATIONS INJECTED: A total of 120 mg Depo-Medrol plus total of 6 mL of 0.25% bupivacaine after radiofrequency ablation, total of 6 mL of 2% lidocaine after motor testing, but prior to radiofrequency ablation 1 mL at each level after negative aspiration at each level as well. CONDITION AT DISCHARGE: Stable. The patient tolerated the procedure well, had no complications. Please see radiofrequency flow sheet for levels, impedances, times, and temperatures, etc. ROSITA RANGEL MD DR: ALYSSA/wayne JOB#: [id number] / [id number]
== END | disposition home or self-care (01) ==
LOC: PNCL 13:02
PROVIDERS: ATTEND Anesthesiology
DX: M51.36 Other intervertebral disc degeneration, lumbar region (principal); M47.817 Spondylosis without myelopathy or radiculopathy, lumbosacral region; Z98.890 Other specified postprocedural states
CPT/HCPCS: 64635; 64636; 73521; J1030; J1040; J2001; J3490

== ENCOUNTER → 2019-07-03 | Outpatient (CLI) | payer BC ==
[~2019-07-03] MED LIST changes: +IOHEXOL 180 MG/ML 10 ML VIAL. ONE; -LIDOCAINE 1% PF 2 ML VIAL. ONE; -LIDOCAINE 2% PF 5 ML VIAL. ONE
--- NOTE | 2019-07-03 10:21 | PAIN ---
DATE OF SERVICE: 07/03/2019 PROGRESS NOTE FOR PAIN CLINIC DIAGNOSES: Lumbar radiculopathy with lumbar degenerative disk disease, lumbar and lumbosacral spondylosis. HISTORY OF PRESENT ILLNESS: The patient is a 38-year-old female who returns for followup status post bilateral lumbar facet injections and radiofrequency ablation, most recently in 04/16. The patient reports she did very well on the right side with 85% improvement and with the left side is only about 60% improved. The patient reports still significant pain in the left low back, but getting worse with time. Also, her left hip is giving her some trouble. She feels like it is popping out of place. The patient reports no new motor or sensory deficits. We did do some x-rays of the hips and reviewed this with her at the end of April, which showed no significant abnormalities in the joints themselves. The patient reports still worse with walking, standing, changing positions, twisting, especially extension in the lumbar spine. The patient reports it is an 8 on a scale of 10 at its worst over the past week, 6 on average and 4 at its least and is a 6 today. The patient reports it is aching, sharp, tight, constant, becoming more severe across the back, again worse on the left side. The patient has been working from home recently and has been sitting in a chair for prolonged periods, doing remote televised work and reports that this is causing the pain to be more noticeable as well. PHYSICAL EXAMINATION: VITAL SIGNS: The patient's blood pressure 122/84, pulse 85, respirations 16, temperature 98.3 degrees Fahrenheit, weight is 195 pounds. GENERAL: The patient is awake, alert, oriented, appropriate, very pleasant demeanor. HEENT: Shows normocephalic, atraumatic. Extraocular movements are intact and symmetrical. Oral cavity: Mucous membranes moist and pink. Dentition is intact. NECK: Shows anterior throat supple without palpable lymphadenopathy noted. Swallow reflex symmetrical. CHEST: Shows normal on inspection. Breath sounds are clear bilaterally. HEART: Shows S1, S2 clear. No murmurs auscultated. ABDOMEN: Soft, nontender, nondistended. No palpable organomegaly is noted. No rebound or guarding demonstrated. BACK: Shows spine grossly in the midline. Normal appearing thoracic kyphosis, some minor flattening of lumbar lordotic curvature. Lumbar paraspinous muscle shows symmetrical on inspection, on palpation shows some moderate tenderness diffusely, more on the left than the right, but is symmetrical without atrophy, hypertrophy without radiation. The patient has good rotational motion with some moderate pain with right and left lateral rotation and significant pain with extension, especially on the left side and axial loading of the low back. Forward flexion is decreased pain, but still some moderate pain on the left side greater than the right at 45 degrees without significant limitation. EXTREMITIES: Lower extremities show deep tendon reflexes at 2+ in the patellar and 1+ tendo-calcaneus tendons. Motor exam is strong with 5/5 dorsiflexion, extension, quadriceps and hamstring flexion symmetrical. Peripheral pulses are 1+ posterior tibia. No peripheral edema is noted. PLAN: Options were discussed with the patient. The patient's old chart was reviewed as her current medication regimen updated. Current review of systems updated today as well. We will proceed with bilateral L4-L5 and L5-S1 facet joint injections today with fluoroscopic guidance. Risks were again discussed including, but not limited to bleeding, infection, possibility of epidural hematoma, subsequent neurologic compromise, dural puncture, headaches, spinal cord and/or nerve damage, side effects of steroid medication and poor results regarding pain control. The patient understands and wished to proceed. The patient will return to clinic in approximately 4 weeks for followup. She was counseled on return appointment, activity level and side effects to be aware of. DIAGNOSIS: Lumbar and lumbosacral spondylosis. PROCEDURE: Lumbar L4-L5 and L5-S1 facet joint injections bilaterally under sterile prep and drape using local anesthetic. MEDICATION INJECTED: Total of 120 mg Depo-Medrol plus 4 mL of 0.25% bupivacaine, 2 mL total of contrast. CONDITION AT DISCHARGE: Stable. The patient tolerated procedure well, had no complications. ROSITA RANGEL MD DR: ALYSSA/wayne JOB#: [id number] / [id number]
== END ==
LOC: PNCL 07:59
PROVIDERS: ATTEND Anesthesiology
DX: M47.817 Spondylosis without myelopathy or radiculopathy, lumbosacral region (principal); M51.16 Intervertebral disc disorders with radiculopathy, lumbar region; Z79.899 Other long term (current) drug therapy; Z98.890 Other specified postprocedural states
CPT/HCPCS: 64493; 64494; J1030; J1040; J3490; Q9965; 62323

== ENCOUNTER → 2019-07-31 | Outpatient (CLI) | payer BC ==
[~2019-07-31] MED LIST changes: +MULT-445 PO; -MULT1TAB52 PO
--- NOTE | 2019-08-01 01:40 | PAIN ---
DATE OF SERVICE: 07/31/2019 PROGRESS NOTE FOR PAIN CLINIC DIAGNOSES: Lumbar degenerative disk disease with lumbar and lumbosacral spondylosis. HISTORY OF PRESENT ILLNESS: The patient is a 38-year-old female who returns for followup status post bilateral lumbar facet joint injections on 07/03/2019. The patient reports she did very well, about 80% improvement for the first 1-1/2 to 2 weeks, then she fell when she was in her bathtub doing some painting, also was on the ladder doing some painting above on the ceiling. The patient reports other than that, she was doing fairly well before she slipped in her bathtub and fell on her left side and then fell off of the ladder that she was using to paint as well. The patient then had a trip where she was driving to [place] and [facility] and has completed that a few weeks ago as well, but the pain has returned significantly, especially after the fall in the bathtub across the low back, worse on the left than the right, but present bilaterally without radiation to lower extremities, but across the low back, aching, dull. The patient reports it is sharp at times, stabbing, unbearable at times, worse with extension of the lumbar spine and axial loading of the low back as well as rotation of motion, especially to the left. The patient reports it is 7 on a scale of 10 at its worst over the past week, 6 on average, 5 at its least and is a 6 today. The patient reports no new motor or sensory deficits, no bowel or bladder incontinence, awakens her from sleep about every 6-7 hours. PHYSICAL EXAMINATION: VITAL SIGNS: The patient's blood pressure 126/84, pulse 78, respirations 16, temperature is 97.6 degrees Fahrenheit, height is 5 feet 4 inches and weight is 197 pounds. GENERAL: The patient is awake, alert, oriented, appropriate, very pleasant demeanor. HEENT: Shows normocephalic, atraumatic. Extraocular movements are intact and symmetrical. Oral cavity: Mucous membranes moist and pink. Dentition is intact. NECK: Shows anterior throat supple without palpable lymphadenopathy noted. Swallow reflex symmetrical. Neck shows full rotational motion of cervical spine, both laterally as well as extension and flexion without significant difficulty. CHEST: Shows normal on inspection. Breath sounds are clear bilaterally. No rales, rhonchi or wheezes auscultated. HEART: Shows S1, S2 clear. No murmurs auscultated. ABDOMEN: Soft, nontender, nondistended. BACK: Shows spine grossly in the midline. Normal appearing thoracic kyphosis and some minor flattening of lumbar lordotic curvature. Lumbar paraspinous muscle shows symmetrical on inspection, on palpation shows some moderate tenderness diffusely bilaterally, but only diffusely without significant radiation. The patient has good rotational motion of lumbar spine, both laterally with moderate tenderness with rotation to the left compared to the right and with extension significant tenderness bilaterally in the low back itself, but without radiation. EXTREMITIES: The patient's lower extremities show deep tendon reflexes at 2+ patellar, 1+ tendo-calcaneus tendons. Motor exam is strong with 5/5 dorsiflexion and extension, quadriceps and hamstring flexion symmetrical. Peripheral pulses are 1+. No peripheral edema bilaterally. Options were discussed with the patient. The patient's old chart was reviewed as her current medication regimen updated. Current review of systems updated today as well and we will proceed with bilateral L4-L5 and L5-S1 facet joint injections today. Risks were discussed including but not limited to bleeding, infection, possibility of epidural hematoma, subsequent neurological compromise, dural puncture, headaches, spinal cord and/or nerve damage, side effects of steroid medication and poor results regarding pain control. The patient understands and wished to proceed. The patient will return to clinic in approximately 2 weeks for followup. She was counseled on return appointment, activity level and side effects to be aware of. DIAGNOSIS: Lumbar and lumbosacral spondylosis. PROCEDURE: Bilateral L4-L5 and L5-S1 facet joint injections using C-arm fluoroscopic guidance under sterile prep and drape using local anesthetic. MEDICATION INJECTED: A total of 120 mg Depo-Medrol plus 4 mL of 0.25% bupivacaine, 2 mL of contrast. CONDITION AT DISCHARGE: Stable. The patient tolerated the procedure well, had no complications. ROSITA RANGEL MD DR: ALYSSA/wayen JOB#: [id number] / [id number]
== END ==
LOC: PNCL 08:36
PROVIDERS: ATTEND Anesthesiology
DX: M47.817 Spondylosis without myelopathy or radiculopathy, lumbosacral region (principal); M51.36 Other intervertebral disc degeneration, lumbar region
CPT/HCPCS: 64493; 64494; 64495; J1030; J1040; J3490; Q9965; 64635; 64636

== ENCOUNTER → 2019-09-04 | Outpatient (CLI) | payer BC ==
[~2019-09-04] MED LIST changes: +ASCO100T4 PO; -BUPIVACAINE MPF 0.25% 10 ML VIAL. ONE; -IOHEXOL 180 MG/ML 10 ML VIAL. ONE; -methylPREDNISolone ACETATE 40 MG/ML VIAL. ONE; -methylPREDNISolone ACETATE 80 MG/ML VIAL. ONE
--- NOTE | 2019-09-04 08:40 | PAIN ---
DATE OF SERVICE: 09/04/2019 PROGRESS NOTE FOR PAIN CLINIC DIAGNOSES: Lumbar degenerative disk disease and lumbosacral spondylosis. HISTORY OF PRESENT ILLNESS: The patient is a 39-year-old female, who returns for followup, status post bilateral facet joint injections on 07/31/2019. The patient did very well with about 85-90% improvement in the low back pain. The patient reports it took a few days before the pain was decreased, but after that it was getting much better until the last 4-5 days ago, she was reaching down into a bathtub to pull the stopper plug out and twisted to the right side causing some significant pain in the left side of the low back into the left posterior hip and lateral thigh. The patient reports it is getting better over the past day or so, but over the weekend, she was having difficulty even putting weight on her walking. The patient reports it is starting to clear up on its own. She has been taking ibuprofen on a regular schedule, exercising, stretching, and trying to put heat application on the low back as well. The patient rates her pain as 7 on a scale of 10 at its worst in the past week, 5 on average, 4 at its least, and is a 4 today. The patient reports it is aching and sharp, cramping at times, sometimes constant and severe over these last few days, but again getting better on its own for the most part. The patient reports it does not awaken her from sleep at night, better with sitting or lying down. Initially, she was doing much better after the facet joint injections with doing work activities, household activities, traveling with greater ease and comfort, standing for longer periods. The patient reports no new motor or sensory deficits, no new changes, no bowel or bladder incontinence. She has been taking hydrocodone, which was also helpful without any constipation or other side effects. PHYSICAL EXAMINATION: VITAL SIGNS: The patient's blood pressure is 133/93, pulse 84, respirations 16, temperature is 98.3 degrees Fahrenheit, height is 5 feet 4 inches, weight is 199 pounds. GENERAL: The patient is awake, alert, oriented, appropriate, has very pleasant demeanor. HEENT: Shows normocephalic, atraumatic. Extraocular movements are intact and symmetrical. Oral cavity: Mucous membranes moist and pink. Dentition is intact. NECK: Shows anterior throat supple without palpable lymphadenopathy noted. Swallow reflex symmetrical. CHEST: Shows normal on inspection. Breath sounds are clear. No rales, rhonchi, or wheezes auscultated. HEART: Shows S1, S2 clear. ABDOMEN: Obese, soft, nontender, nondistended. BACK: Shows spine grossly in the midline. Normal-appearing thoracic kyphosis and minor flattening of lumbar lordotic curvature. Lumbar paraspinous muscle shows symmetrical on inspection. On palpation, she has some mild tenderness diffusely throughout the upper, middle, and lower distribution of the paraspinous muscles bilaterally, but without atrophy, hypertrophy without trigger points or asymmetry. No tenderness over the spinous processes, sacrum, or sacroiliac regions. The patient has good rotational motion of the lumbar spine with good rotation, right and left lateral greater than 10 degrees with only very mild pain on the left side. Extension still with some moderate pain bilaterally. Forward flexion causes some mild stretching sensation reported on the left side only, but without significant pain or radiation. EXTREMITIES: Lower extremities show deep tendon reflexes 2+ in the patellar, 1+ tendo-calcaneus tendons are equal. Motor exam is strong with 5/5 dorsiflexion, extension, quadriceps, and hamstring flexion and symmetrical. Peripheral pulses are 1+. No peripheral edema is noted in the bilateral lower extremities. Options were discussed with the patient. The patient's old chart was reviewed as her current medication regimen updated. Current review of systems updated today as well. We will hold on any further injections at this time. We will try Medrol Dosepak. The patient also will be given refill prescription for hydrocodone 7.5 mg with instructions, side effects to be aware of discussed with each of the medications. The patient will follow up in approximately 4 weeks or sooner as necessary. ROSITA RANGEL MD DR: ALYSSA/wayne JOB#: [id number] / [id number]
== END | disposition home or self-care (01) ==
LOC: PNCL 07:52
PROVIDERS: ATTEND Anesthesiology
DX: M51.16 Intervertebral disc disorders with radiculopathy, lumbar region (principal); M47.896 Other spondylosis, lumbar region; Z79.899 Other long term (current) drug therapy
CPT/HCPCS: 99212; G0463

== ENCOUNTER → 2019-10-16 | Outpatient (CLI) | payer BC ==
[~2019-10-16] MED LIST changes: +BUPIVACAINE MPF 0.25% 10 ML VIAL. ONE; +IOHEXOL 180 MG/ML 10 ML VIAL. ONE; +methylPREDNISolone ACETATE 40 MG/ML VIAL. ONE; +methylPREDNISolone ACETATE 80 MG/ML VIAL. ONE
--- NOTE | 2019-10-16 08:38 | PDOC ---
Progress Note - Pain Clinic Date of Service: DOS: DATE: 10/16/19 TIME: 08:33 Diagnosis: Dx: Lumbar degenerative disc disease with lumbar and lumbosacral spondylosis History or Present Illness: HPI: 39-year-old female returns follow-up status post bilateral facet joint inje ctions most recently July 31, 2019. Patient reports did very well with these with 80% improvement for about 2 months with the pain increasing recently we seen her back at the end of August the pain is getting to return tried a Medrol Dosepak which did help mildly and refill patient's hydrocodone at that time. Patient ports since that time the pain is beginning to improve increased with activity standing extension of the lumbar spine walking rates a 7 on a scale of 10 at its worst 6 on average and a 4 is least over the past week is a 4 today patient reports it is aching and radiating across the low back worse on the left side severe with walking standing changing positions awaken her from sleep once again initially she was a much better with doing greater work activities household activities walking greater distances sleeping better now is waking her about every 3 hours. Patient reports no new motor or sensory deficits no new bowel or bladder incontinence. Physical Exam: VS: Blood pressures 121/87 pulse 81 respirations are 18 temperature is 98.5 F height is 5 foot 4 inches weight is 195 pounds PE: PHYSICAL EXAMINATION: GENERAL: The patient is awake, alert, oriented, appropriate, very pleasant demeanor HEENT: Shows normocephalic, atraumatic. Extraocular movements are intact and symmetrical. Oral cavity: Mucous membranes moist and pink. NECK: Shows anterior throat supple without palpable lymphadenopathy noted. Swallow reflex symmetrical. CHEST: Shows normal on inspection. Breath sounds are clear bilaterally, no rales rhonchi or wheezes auscultated. HEART: Shows S1, S2 clear. No murmurs auscultated. ABDOMEN: Soft, nontender, nondistended. No palpable organomegaly is noted. No rebound or guarding demonstrated. BACK: Shows spine grossly in the midline. Normal-appearing cervical lordotic curvature. There is slightly increased thoracic kyphosis, some minor flattening of the lumbar lordotic curvature. Lumbar paraspinous muscles show symmetrical on inspection, on palpation shows some moderate tenderness diffusely throughout the upper, middle and lower distribution of the paraspinous muscles bilaterally and also into the lower thoracic paraspinous musculature, firm and tender, but without specific trigger points, without radiation of pain. The patient has good rotational motion of the lumbar spine, with moderate pain with extension lumbar spine greater than 10 degrees right left lateral rotation 10 degrees is mildly tender more to the left than the right but present bilaterally forward flexion decreases the pain bilaterally as well. No tenderness over the spinous processes, sacrum or sacroiliac regions. EXTREMITIES: Lower extremities show deep tendon reflexes 2+ in the patellar and tendo calcaneus tendons. Motor exam is 5 on a scale of 5 with right dorsiflexion, extension, quadriceps and hamstring flexion and 5/5 on the left. Peripheral pulses are 1+ posterior tibial. No peripheral edema is noted bilaterally. Lower extremities are warm and dry to touch, equal in color and appearance. SKIN: Shows warm and dry, good turgor. No edema. No sores, rashes or bruising throughout. Procedure: Procedure: Discussed with the patient. Patient's old chart was use her current medication regimen updated current review of systems updated today as well. We will proceed with bilateral lumbar L4-5 and L5-S1 facet joint injections today. Risks were discussed including but not limited to: Bleeding, infection, possibility of epidural hematoma and subsequent neurological compromise, dural puncture, headaches, spinal cord and/or nerve damage, side effects of steroid medication, and poor results regarding pain control. Patient understands wished to proceed. Patient return to the clinic in approximately 4 weeks for follow-up or later as necessary. We did discuss potential of repeat radiofrequency ablation as patient does very well with this for much longer period of time than the facet injections. Patient understands and agrees will follow-up as scheduled Medication Injected: Med Injected: Under sterile prep and drape using C-arm fluoroscopic guidance AP and lateral and oblique views, bilateral L4-5 and L5-S1 facet joint injections, medications injected: 120 mg Depo-Medrol +4 cc 0.25% bupivacaine +2 cc contrast. Condition at discharge stable patient tolerated the procedure well and no complications. Condition at Discharge: Condition at Discharge: Condition at discharge stable patient tolerated procedure well had no complications. ROSITA RANGEL MD Oct 16, 2019 08:38
== END | disposition home or self-care (01) ==
LOC: PNCL 08:09
PROVIDERS: ATTEND Anesthesiology
DX: M47.817 Spondylosis without myelopathy or radiculopathy, lumbosacral region (principal); M47.816 Spondylosis without myelopathy or radiculopathy, lumbar region; M51.36 Other intervertebral disc degeneration, lumbar region; Z79.899 Other long term (current) drug therapy
CPT/HCPCS: 64635; 64636; J1030; J1040; J3490; Q9965

== ENCOUNTER → 2019-11-12 | Outpatient (CLI) | payer BC ==
[~2019-11-12] MED LIST changes: -IOHEXOL 180 MG/ML 10 ML VIAL. ONE; +LIDOCAINE 2% PF 5 ML VIAL. ONE
--- NOTE | 2019-11-12 14:26 | PDOC ---
Progress Note - Pain Clinic Date of Service: DOS: DATE: 11/12/19 TIME: 14:19 Diagnosis: Dx: Lumbar degenerative disc disease with lumbar and lumbosacral spondylosis History or Present Illness: HPI: 39-year-old female returns follow-up status post bilateral L4-5 and L5-S1 facet medial branch blocks on October 16, 2019. Patient reports about 80% improvement for the past 3 and half weeks pain returning now over the last week or so in the low back itself without radiation to the lower extremities. Patient reports pain is a 6 on scale 10 is worse over the past week 5 on average to its least and is a 5 today patient ported is worse with walking standing changing position especially with twisting or bending and extension of the lumbar spine patient describes a stabbing aching tight constant and severe beginning to disturb sleep once again about every 5-6 hours patient reports initially she was doing much better with distance walking doing household activities work activities try with greater ease and comfort now the pain is returning fairly significantly across the low back right essentially equal to left. Patient reports no new motor or sensory deficits no new bowel or bladder incontinence or other complaints. Physical Exam: VS: Pressure is 125/71 pulse 81 respirations 18 temperature is 97.6 F height is 5 feet 4 inches weight is 195 pounds PE: PHYSICAL EXAMINATION: GENERAL: The patient is awake, alert, oriented, appropriate, very pleasant demeanor HEENT: Shows normocephalic, atraumatic. Extraocular movements are intact and symmetrical. Oral cavity: Mucous membranes moist and pink. NECK: Shows anterior throat supple without palpable lymphadenopathy noted. Swallow reflex symmetrical. CHEST: Shows normal on inspection. Breath sounds are clear bilaterally no rales rhonchi or wheezes. HEART: Shows S1, S2 clear. No murmurs auscultated. ABDOMEN: Soft, nontender, nondistended, obese. No palpable organomegaly is noted. No rebound or guarding demonstrated. BACK: Shows spine grossly in the midline. There is slightly increased thoracic kyphosis, some minor flattening of the lumbar lordotic curvature. Lumbar paraspinous muscles show symmetrical on inspection, on palpation shows some moderate tenderness diffusely throughout the upper, middle and lower distribution of the paraspinous muscles bilaterally,without specific trigger points, without radiation of pain. Patient shows moderate tenderness with rotation of the lumbar spine both laterally greater than 10 degrees right and le ft full extension with significant pain greater than 10 degrees across the low back bilaterally with extension and axial loading of the low back this is decreased with forward flexion at 45 degrees which is performed without significant difficulty. No tenderness over the spinous processes, sacrum or sacroiliac regions. EXTREMITIES: Lower extremities show deep tendon reflexes 2+ in the patellar and tendo calcaneus tendons. Motor exam is 5 on a scale of 5 with right dorsiflexion, extension, quadriceps and hamstring flexion and 5/5 on the left. Peripheral pulses are 1+ posterior tibial. No peripheral edema is noted bilaterally. Lower extremities are warm and dry to touch, equal in color and appearance. SKIN: Shows warm and dry, good turgor. No edema. No sores, rashes or bruising throughout. Procedure: Procedure: Options were discussed with the patient. Patient's old chart was reviewed as her current medication regimen updated current review of systems updated today as well. We will proceed with bilateral radiofrequency ablation the medial branches L4-5 and L5-S1 with fluoroscopic guidance. Risks were discussed including but not limited to: Bleeding, infection, possibility of epidural hematoma and subsequent neurological compromise, dural puncture, headaches, spinal cord and/or nerve damage, side effects of steroid medication, potential thermal injury and instruction of motor nerves as well as surrounding tissue with permanent ischemic damage, and poor results regarding pain control. Patient understands wished to proceed. Patient will return to the clinic in approximately 3 weeks as scheduled was counseled as to return appointment activity level and side effects to be aware of. Patient also given refill prescription of hydrocodone 7.5 mg with instructions side effects aware of as well. Medication Injected: Med Injected: Under sterile prep and drape patient in prone position using C-arm fluoroscopic guidance patient's lumbar spine was visualized in both AP oblique and lateral views using 1% lidocaine to topically anesthetize the areas overlying the L3-4, L4-5 and L5-S1 facet joints at the point of the medial branches. Using a 22- gauge insulated radiofrequency needle with curved tips and stylette, the needles were advanced to contact the region of the facet with the medial branch targets. This was repeated at the L3-4 L4-5 and L5-S1 levels. Stylette was removed and using radiofrequency probe inserted into each needle individually at each level and then motor tested with no motor stimulation of the lower extremity. Patient did have some multifidus musculature contraction in the lumbar spine only but without radiation. At this time 1 cc of 2% lidocaine was then injected in each needle after motor testing but prior to radiofrequency ablation. Needle position was confirmed continuously throughout the radiofrequency ablation with both AP oblique and lateral views at each level. At this time radiofrequency ablation was carried out each level for 60 seconds at 80 C x 2 at each level with the tip of the needle turned 90 degrees after the first 60 seconds and then subsequent 60 seconds of radiofrequency ablation. Once radiofrequency ablation was completed solution containing 0.25% bupivacaine 1 cc and 20 mg Depo-Medrol was injected each level. Needle was then withdrawn. The procedure was repeated for the contralateral side as described as well. Patient had no paresthesias throughout the procedure no radiation of pain into the lower extremities no lower extremity motor response with motor testing bilaterally. Please see radiofrequency flowsheet for levels, temperatures, impedance, etc. Condition at Discharge: Condition at Discharge: Condition at discharge is stable patient tolerated procedure well had no immediate complications. ROSITA RANGEL MD Nov 12, 2019 14:25
== END | disposition home or self-care (01) ==
LOC: PNCL 12:52
PROVIDERS: ATTEND Anesthesiology
DX: M47.816 Spondylosis without myelopathy or radiculopathy, lumbar region (principal); M47.817 Spondylosis without myelopathy or radiculopathy, lumbosacral region; M51.36 Other intervertebral disc degeneration, lumbar region; Z79.899 Other long term (current) drug therapy
CPT/HCPCS: 64635; 64636; J1030; J1040; J3490

== ENCOUNTER → 2019-12-10 | Outpatient (CLI) | payer BC ==
[~2019-12-10] MED LIST changes: -BUPIVACAINE MPF 0.25% 10 ML VIAL. ONE; -LIDOCAINE 2% PF 5 ML VIAL. ONE; -methylPREDNISolone ACETATE 40 MG/ML VIAL. ONE; -methylPREDNISolone ACETATE 80 MG/ML VIAL. ONE
--- NOTE | 2019-12-10 09:31 | PDOC ---
Progress Note - Pain Clinic Date of Service: DOS: DATE: 12/10/19 TIME: 09:28 Diagnosis: Dx: lumbar degenerative disease and lumbar and lumbosacral spondylosis History or Present Illness: HPI: 39-year-old female returns follow-up status post radiofrequency ablation bilate ral L4-5 and L5-S1 facet medial branches. Patient reports she is doing very well about 80% improvement since the procedure that was on November 12, 2019. Patient reports increasing activities greater ease and comfort walking greater distances doing household activities work activities try with greater ease patient ports he is sleeping well at night is overall feeling much better and is very pleased with her progress. Patient reports that she did fall over her dog's chain about 3 days ago which is caused some pain on the left side but is not unbearable. Patient rates her pain a 8 on a scale of 10 at that incident over the past week 2 on average to displaces it to today patient ported can be more throbbing and aching the low back but mostly dull. No radiation to lower extremities at this time. Patient reports no new motor or sensory deficits no bowel or bladder incontinence or other complaints. Physical Exam: VS: Pressure is 130/82 pulse 79 respirations 18 temperature 90.4 F height is 5 feet 4 inches weight is 199 pounds PE: PHYSICAL EXAMINATION: GENERAL: The patient is awake, alert, oriented, appropriate, very pleasant demeanor HEENT: Shows normocephalic, atraumatic. Extraocular movements are intact and symmetrical. NECK: Shows anterior throat supple without palpable lymphadenopathy noted. Swallow reflex symmetrical. CHEST: Shows normal on inspection. Breath sounds are clear bilaterally. HEART: Shows S1, S2 clear. No murmurs auscultated. ABDOMEN: Soft, nontender, nondistended, obese. No palpable organomegaly is noted. No rebound or guarding demonstrated. BACK: Shows spine grossly in the midline. Normal-appearing cervical lordotic curvature. There is slightly increased thoracic kyphosis, some minor flattening of the lumbar lordotic curvature. Lumbar paraspinous muscles show symmetrical on inspection, on palpation shows some moderate tenderness diffusely throughout the upper, middle and lower distribution of the paraspinous muscles, but without specific trigger points, without radiation of pain. The patient has good rotational motion of the lumbar spine, both laterally as well as extension and flexion without significant difficulty. No tenderness over the spinous processes, sacrum or sacroiliac regions. EXTREMITIES: Lower extremities show deep tendon reflexes 2+ in the patellar and tendo calcaneus tendons. Motor exam is 5 on a scale of 5 with right dorsiflexion, extension, quadriceps and hamstring flexion and 5/5 on the left. Peripheral pulses are 1+ posterior tibial. No peripheral edema is noted bilaterally. Lower extremities are warm and dry to touch, equal in color and appearance. SKIN: Shows warm and dry, good turgor. No edema. No sores, rashes or bruising throughout. Procedure: Procedure: Discussed with the patient. Patient chart was reviewed as her current medication regimen updated current review of systems updated today as well. She was doing much better after radiofrequency ablation, we will have her continue with strengthening stretching exercises walking daily and activity, also discussed weight loss techniques. Patient will follow up currently on as-needed basis. Medication Injected: Med Injected: None Condition at Discharge: Condition at Discharge: Patient is given refill prescription for hydrocodone with instructions side effects beware with the medication. Condition at discharge is stable. ROSITA RANGEL MD Dec 10, 2019 09:31
== END | disposition home or self-care (01) ==
LOC: PNCL 08:57
PROVIDERS: ATTEND Anesthesiology
DX: M47.817 Spondylosis without myelopathy or radiculopathy, lumbosacral region (principal); Z79.899 Other long term (current) drug therapy
CPT/HCPCS: 99212; G0463

== ENCOUNTER → 2020-02-12 | Outpatient (CLI) | payer BC ==
[~2020-02-12] MED LIST changes: +ACET500T68 PO; +BUPIVACAINE MPF 0.25% 10 ML VIAL. ONE; +IOHEXOL 180 MG/ML 10 ML VIAL. ONE; +methylPREDNISolone ACETATE 40 MG/ML VIAL. ONE; +methylPREDNISolone ACETATE 80 MG/ML VIAL. ONE
--- NOTE | 2020-02-12 08:28 | PDOC ---
Progress Note - Pain Clinic Date of Service: DOS: DATE: 02/12/20 TIME: 08:24 Diagnosis: Dx: Lumbar and lumbosacral spondylosis Lumbar degenerative disc disease History or Present Illness: HPI: 39-year-old female returns follow-up status post radiofrequency ablation bilater al medial branches L4-5 L5-S1. Patient ports he did very well for several months after the injections about 3 months the pain is returning now gradually in the low back bilaterally patient reports it was worse on the left than the right worse with walking standing changing positions patient is been very active and traveling quite a bit with her son and doing a lot of extra activity around the holidays but reports pain is increasing now in the low back itself not radiating to the lower extremities some pain in the hips bilaterally but mostly in the low back patient reports that AL scale 10 is worse in the past week 6 on average for its least is a 6 today. Patient which is dull and aching tight shooting across the back, more constant severe with walking and standing. Patient ports better with sitting or laying down but has awaken her from sleep for the past 3 to 4 days about 2-3 times at night. She reports no new motor or sensory deficits no new bowel or bladder incontinence. Physical Exam: VS: Blood pressure is 135/89 pulse 79 respirations 16 temperature 97.9 F height is 5 foot 4 inches weight is 199 pounds PE: PHYSICAL EXAMINATION: GENERAL: The patient is awake, alert, oriented, appropriate, very pleasant demeanor HEENT: Shows normocephalic, atraumatic. Extraocular movements are intact and symmetrical. NECK: Shows anterior throat supple without palpable lymphadenopathy noted. Swallow reflex symmetrical. CHEST: Shows normal on inspection. Breath sounds are clear bilaterally, no rales or rhonchi. HEART: Shows S1, S2 clear. No murmurs auscultated. ABDOMEN: Soft, nontender, nondistended, obese. No palpable organomegaly is noted. No rebound or guarding demonstrated. BACK: Shows spine grossly in the midline. Normal-appearing cervical lordotic curvature. There is slightly increased thoracic kyphosis, some flattening of the lumbar lordotic curvature. Lumbar paraspinous muscles show symmetrical on inspection, on palpation shows some moderate tenderness diffusely throughout the upper, middle and lower distribution of the paraspinous muscles, but without specific trigger points, without radiation of pain. The patient has good rotational motion of the lumbar spine, both laterally as well as extension and flexion with significant pain with extension in the left greater than right but by present bilaterally also right and left lateral rotation greater than 10 degrees moderate tenderness more on the left than the right forward flexion is performed without significant difficulty at 45 degrees. No tenderness over the spinous processes, sacrum or sacroiliac regions. EXTREMITIES: Lower extremities show deep tendon reflexes 2+ in the patellar and tendo calcaneus tendons. Motor exam is 5 on a scale of 5 with right dorsiflexion, extension, quadriceps and hamstring flexion and 5/5 on the left. Peripheral pulses are 1+ posterior tibial. No peripheral edema is noted bilaterally. Lower extremities are warm and dry to touch, equal in color and appearance. SKIN: Shows warm and dry, good turgor. No edema. No sores, rashes or bruising throughout. Procedure: Procedure: Options discussed with the patient. Patient chart reviewed as her current medication regimen updated current review of systems updated today as well. We will proceed with a bilateral L4-5 and L5-S1 facet joint injections today with fluoroscopic guidance. Risks were discussed including but not limited to: Bleeding, infection, possibility of epidural hematoma and subsequent neurological compromise, dural puncture, headaches, spinal cord and/or nerve damage, side effects of steroid medication, and poor results regarding pain control. Patient understands wished to proceed. Patient will return to clinic in approximately 4 weeks for follow-up was counseled as return appointment activity level and side effects be aware. Patient also given refill medication of hydrocodone with instructions side effects aware of discussed with the medication as well. Medication Injected: Med Injected: Under sterile prep and drape using C-arm fluoroscopic guidance AP and lateral and oblique views, bilateral L4-5 and L5-S1 facet joint injections were performed, medications injected: 120 mg Depo-Medrol +4 cc 0.25% bupivacaine +2 cc contrast. Condition at discharge stable patient tolerated the procedure well and no complications. Condition at Discharge: Condition at Discharge: Patient discharged stable, patient tolerated procedure well and had no complications. ROSITA RANGEL MD Feb 12, 2020 08:28
== END | disposition home or self-care (01) ==
LOC: PNCL 07:35
PROVIDERS: ATTEND Anesthesiology
DX: M47.817 Spondylosis without myelopathy or radiculopathy, lumbosacral region (principal); M51.36 Other intervertebral disc degeneration, lumbar region; Z98.890 Other specified postprocedural states
CPT/HCPCS: 64635; 64636; J1030; J1040; J3490; Q9965

== ENCOUNTER → 2020-03-19 | Outpatient (CLI) | payer BC ==
--- NOTE | 2020-03-19 08:37 | PDOC ---
Progress Note - Pain Clinic Date of Service: DOS: DATE: 03/19/20 TIME: 08:34 Diagnosis: Dx: Lumbar degenerative disc disease with lumbar and lumbosacral spondylosis History or Present Illness: HPI: 39-year-old female returns follow-up status post bilateral facet injections L4-5 and L5-S1. Patient reports very about 90% improvement for the first 3 to 4 weeks after the injections but as the weather turned colder she has been having increased pain she was initially working out 2-3 times a week is walking daily was losing some weight and was feeling much better but the pain is returned now with some colder weather patient reports no new motor or sensory deficits no new bowel or bladder incontinence no recent injuries or falls patient reports her pain is a 6 on scale 10 is worse over the past week for an average 3 at its least and is a 4 today patient ports aching burning stabbing at times radiating constant across the low back but not into the lower extremities patient reports it awakens her from sleep about every 2-3 hours now over the past week or so for the first 3 to 4 weeks he was doing much better with distance walking doing activity at home as well as at work travel with greater ease and comfort walking and working out with greater ease now the pain is returning as noted. Patient reports no new motor or sensory deficits or other complaints. Physical Exam: VS: Blood pressure is 128/84 pulse 98 respirations 18 temperature 98.3 F height is 5 feet 4 inches weight is 189 pounds PE: PHYSICAL EXAMINATION: GENERAL: The patient is awake, alert, oriented, appropriate, very pleasant demeanor HEENT: Shows normocephalic, atraumatic. Extraocular movements are intact and symmetrical. NECK: Shows anterior throat supple without palpable lymphadenopathy noted. Swallow reflex symmetrical. CHEST: Shows normal on inspection. Breath sounds are clear bilaterally. HEART: Shows S1, S2 clear. No murmurs auscultated. ABDOMEN: Soft, nontender, nondistended, obese. No palpable organomegaly is noted. BACK: Shows spine grossly in the midline. Normal-appearing cervical lordotic curvature. There is slightly increased thoracic kyphosis, some flattening of the lumbar lordotic curvature. Lumbar paraspinous muscles show symmetrical on inspection, on palpation shows some moderate tenderness diffusely throughout the upper, middle and lower distribution of the paraspinous muscles without specific trigger points, without radiation of pain. The patient has good rotational motion of the lumbar spine, both laterally as well as extension and flexion without significant difficulty. No tenderness over the spinous processes, sa keanu or sacroiliac regions. EXTREMITIES: Lower extremities show deep tendon reflexes 2+ in the patellar and tendo calcaneus tendons. Motor exam is 5 on a scale of 5 with right dorsiflexion, extension, quadriceps and hamstring flexion and 5/5 on the left. Peripheral pulses are 1+ posterior tibial. No peripheral edema is noted bilaterally. SKIN: Shows warm and dry, good turgor. No edema. No sores, rashes or bruising throughout. Procedure: Procedure: Options were discussed with the patient. Patient chart reviews her current medication regimen updated current review of systems updated today as well. We will proceed with bilateral L4-5 and L5-S1 facet joint injections today with fluoroscopic guidance. Risks were discussed including but not limited to: Bleeding, infection, possibility of epidural hematoma and subsequent neurological compromise, dural puncture, headaches, spinal cord and/or nerve damage, side effects of steroid medication, and poor results regarding pain con trol. Patient understands and wished to proceed. Patient will return to clinic in approximately 4 weeks for follow-up, was counseled as to return appointment activity level and side effects to be aware of. Medication Injected: Med Injected: Under sterile prep and drape using C-arm fluoroscopic guidance AP and lateral and oblique views, bilateral L4-5 and L5-S1 facet joint injections were performed, medications injected: 120 mg Depo-Medrol +4 cc 0.25% bupivacaine +2 cc contrast. Condition at discharge stable patient tolerated the procedure well and no complications. Condition at Discharge: Condition at Discharge: Condition at discharge is stable, patient tolerated the procedure well and had no complications. ROSITA RANGEL MD Mar 19, 2020 08:37
--- NOTE | 2020-03-19 08:38 | PDOC4 ---
PROCEDURE Procedure Patient was consented for bilateral lumbar L4-5 and L5-S1 facet joint inject ions. Risks were discussed including but not limited to: Bleeding, infection, possibility of epidural hematoma and subsequent neurological compromise, dural puncture, headaches, spinal cord and/or nerve damage, side effects of steroid medication, and poor results regarding pain control. Patient understands and wished to proceed. Under sterile prep and drape using C-arm fluoroscopic guidance AP and lateral and oblique views, bilateral L4-5 and L5-S1 facet joint injections were performed, medications injected: 120 mg Depo-Medrol +4 cc 0.25% bupivacaine +2 cc contrast. Condition at discharge stable patient tolerated the procedure w ell and no complications. ROSITA RANGEL MD Mar 19, 2020 08:38
== END | disposition home or self-care (01) ==
LOC: PNCL 08:00
PROVIDERS: ATTEND Anesthesiology
DX: M51.36 Other intervertebral disc degeneration, lumbar region (principal); M47.817 Spondylosis without myelopathy or radiculopathy, lumbosacral region; Z79.899 Other long term (current) drug therapy; Z98.890 Other specified postprocedural states
CPT/HCPCS: 64493; 64494; J1030; J1040; J3490; Q9965

== ENCOUNTER → 2020-05-07 | Outpatient (CLI) | payer BC ==
--- NOTE | 2020-05-07 08:44 | PDOC4 ---
PROCEDURE Procedure Patient was consented for bilateral L4-5 and L5-S1 facet joint injections. Risks were discussed including but not limited to: Bleeding, infection, possibility of epidural hematoma and subsequent neurological compromise, dural puncture, headaches, spinal cord and/or nerve damage, side effects of steroid medication, and poor results regarding pain control. Patient understands and wished to proceed. Under sterile prep and drape using C-arm fluoroscopic guidance AP and lateral and oblique views, bilateral L4-5 and L5-S1 facet joint injections were performed, medications injected: 120 mg Depo-Medrol +4 cc 0.25% bupivacaine +2 cc contrast. Condition at discharge stable patient tolerated the procedure well and no complications. ROSITA RANGEL MD May 07, 2020 08:44
--- NOTE | 2020-05-07 08:44 | PDOC ---
Progress Note - Pain Clinic Date of Service: DOS: DATE: 05/07/20 TIME: 08:40 Diagnosis: Dx: Lumbar degenerative disc disease with lumbar and lumbosacral spondylosis History or Present Illness: HPI: 39-year-old female returns to follow-up status post bilateral lumbar facet injections most recently March 19, 2020. Patient reports very well about 75% improvement for 4 weeks after the injections pain is returning now in the low back itself bilaterally slightly worse on the left than the right but present bilaterally worse with walking standing patient reports she recently about a week ago had a fall on some stairs and landed on her left hip and celeste her back fairly significantly before that she was doing fairly well the pain was returning but now it is returned significantly patient reports pain is a 7 on scale 10 is worse over the past week 6 on average for its least is a 6 today patient reports aching and dull sharp and shooting across the low back stabbing and cramping at times without radiation to the lower extremities. Patient reports no new motor or sensory deficits no new bowel or bladder incontinence reports has been waking her about 3-4 times at night over the past week since her fall that was doing fairly well with increased activity doing walking household activities work activities as well as travel with greater ease as well. Patient reports no changes. Physical Exam: VS: Blood pressure is 121/79 pulse 83 respirations 18 temperature is 98.3 F height 5 feet 4 his weight is 188 pounds PE: PHYSICAL EXAMINATION: GENERAL: The patient is awake, alert, oriented, appropriate, very pleasant demeanor HEENT: Shows normocephalic, atraumatic. Extraocular movements are intact and symmetrical. Oral cavity: Mucous membranes moist and pink. Dentition is intact. NECK: Shows anterior throat supple without palpable lymphadenopathy noted. Swallow reflex symmetrical. CHEST: Shows normal on inspection. Breath sounds are clear bilaterally, no rales or rhonchi. HEART: Shows S1, S2 clear. No murmurs auscultated. ABDOMEN: Soft, nontender, nondistended, obese. No palpable organomegaly is noted. No rebound or guarding demonstrated. BACK: Shows spine grossly in the midline. Normal-appearing cervical lordotic curvature. There is slightly increased thoracic kyphosis, some minor flattening of the lumbar lordotic curvature. Lumbar paraspinous muscles show symmetrical on inspection, on palpation shows some moderate tenderness diffusely throughout the upper, middle and lower distribution of the paraspinous muscles, but without specific trigger points, without radiation of pain. The patient has good rotational motion of the lumbar spine, with moderate tenderness with right and left lateral rotation past 10 degrees with significant tenderness at 10 degrees extension and axial loading of the lumbar spine better with forward flexion 45 degrees was performed fully without significant pain. EXTREMITIES: Lower extremities show deep tendon reflexes 2+ in the patellar and tendo calcaneus tendons. Motor exam is 5 on a scale of 5 with right dorsiflexion, extension, quadriceps and hamstring flexion and 5/5 on the left. Peripheral pulses are 1+ posterior tibial. No peripheral edema is noted bilaterally. SKIN: Shows warm and dry, good turgor. No edema. No sores, rashes or bruising throughout. Procedure: Procedure: Options were discussed with the patient. Patient chart reviews her current medication regimen updated current review of systems updated today as well. We will proceed with bilateral L4-5 and L5-S1 facet medial branch injections today with fluoroscopic guidance. Risks were discussed including but not limited to: Bleeding, infection, possibility of epidural hematoma and subsequent neurological compromise, dural puncture, headaches, spinal cord and/or nerve damage, side effects of steroid medication, and poor results regarding pain control. Patient understands and wished to proceed. Patient will return to clinic in approximately 4 weeks for follow-up, was counseled as return appointment to fill and side effects to be aware of. We did discuss if she has similar improvement as previously we may proceed with radiofrequency ablation and she is done very well with this in the past also. Medication Injected: Med Injected: Under sterile prep and drape using C-arm fluoroscopic guidance AP and lateral and oblique views, bilateral L4-5 and L5-S1 facet joint injections were performed, medications injected: 120 mg Depo-Medrol +4 cc 0.25% bupivacaine +2 cc contrast. Condition at discharge stable patient tolerated the procedure well and no complications. Condition at Discharge: Condition at Discharge: Condition at discharge stable, patient alert the procedure well and had no complications. ROSITA RANGEL MD May 07, 2020 08:44
== END | disposition home or self-care (01) ==
LOC: PNCL 08:01
PROVIDERS: ATTEND Anesthesiology
DX: M51.36 Other intervertebral disc degeneration, lumbar region (principal); M47.816 Spondylosis without myelopathy or radiculopathy, lumbar region; Z98.890 Other specified postprocedural states
CPT/HCPCS: 64493; 64494; J1030; J1040; J3490; Q9965

== ENCOUNTER → 2020-05-25 | Outpatient (CLI) | payer BC ==
[~2020-05-25] MED LIST changes: -IOHEXOL 180 MG/ML 10 ML VIAL. ONE; +LIDOCAINE 1% PF 2 ML VIAL. ONE; +LIDOCAINE 2% PF 5 ML VIAL. ONE
--- NOTE | 2020-05-25 14:21 | PDOC ---
Progress Note - Pain Clinic Date of Service: DOS: DATE: 05/25/20 TIME: 14:16 Diagnosis: Dx: Lumbar degenerative disease with lumbar and lumbosacral spondylosis History or Present Illness: HPI: 39-year-old female returns for follow-up status post facet joint injections most recently May 07, 2020. Patient did very well with these with 75% improvement for the first 2 to 3 weeks pain returning now but still about 650% improvement overall was awaiting authorization for radiofrequency ablation she did very well with this in the past as well. Patient reports still significant pain in the low back worse on the left than the right but present bilaterally without radiation to lower extremities. Patient reports is burning and stabbing and can be constant with activity walking standing changing positions also has been awakened from sleep sporadically but not every night patient reports the pain is a 7 on scale 10 is worse over the past week 5 on average 3 days least is a 5. Patient reports no new motor or sensory deficits no new bowel or bladder incontinence or other complaints. Physical Exam: VS: Blood pressure 123/72 pulse 84 respirations 16 temperature 98.1 F height is 5 feet 4 inches weight is 184 pounds PE: PHYSICAL EXAMINATION: GENERAL: The patient is awake, alert, oriented, appropriate, very pleasant demeanor HEENT: Shows normocephalic, atraumatic. Extraocular movements are intact and symmetrical. Oral cavity: Mucous membranes moist and pink. Dentition is intact. NECK: Shows anterior throat supple without palpable lymphadenopathy noted. Swallow reflex symmetrical. CHEST: Shows normal on inspection. Breath sounds are clear bilaterally. HEART: Shows S1, S2 clear. No murmurs auscultated. ABDOMEN: Soft, nontender, nondistended, obese. No palpable organomegaly is noted. No rebound or guarding demonstrated. BACK: Shows spine grossly in the midline. Normal-appearing cervical lordotic curvature. There is slightly increased thoracic kyphosis, some minor flattening of the lumbar lordotic curvature. Lumbar paraspinous muscles show symmetrical on inspection, on palpation shows some moderate tenderness diffusely throughout the upper, middle and lower distribution of the paraspinous muscles without specific trigger points, without radiation of pain. The patient has good rotational motion of the lumbar spine, both laterally as well as extension and flexion with moderate tenderness with right and left lateral rotation slightly more to the left than the right but with significant tenderness with extension and axial loading of the lumbar spine without radiation but present bilaterally with significant pain left greater than right. EXTREMITIES: Lower extremities show deep tendon reflexes 2+ in the patellar and tendo calcaneus tendons. Motor exam is 5 on a scale of 5 with right dorsiflexion, extension, quadriceps and hamstring flexion and 5/5 on the left. Peripheral pulses are 1+ posterior tibial. No peripheral edema is noted bilaterally. Lower extremities are warm and dry bilaterally. SKIN: Shows warm and dry, good turgor. No edema. No sores, rashes or bruising throughout. Procedure: Procedure: Options were discussed with patient. Patient will chart reviews her current medication regimen updated current review of systems updated today as well. We will proceed with bilateral radiofrequency ablation the L4-5 and L5-S1 medial branches with fluoroscopy guidance. Risks were discussed including but not limited to: Bleeding, infection, possibility of epidural hematoma and subsequent neurological compromise, dural puncture, headaches, spinal cord and/or nerve damage, side effects of steroid medication, potential thermal injury to the surrounding tissues as well as permanent motor nerve damage and ischemia, and poor results regarding pain control. Patient understands and wished to proceed. Patient return to clinic in approximate 3 weeks for follow-up, was counseled as return appointment activity level and side effects to be aware of. Medication Injected: Med Injected: Under sterile prep and drape patient in prone position using C-arm fluoroscopic guidance patient's lumbar spine was visualized in both AP oblique and lateral views using 1% lidocaine to topically anesthetize the areas overlying the L3-4, L4-5 and L5-S1 facet joints at the point of the medial branches. Using a 22- gauge insulated radiofrequency needle with curved tips and stylette, the needles were advanced to contact the region of the facet with the medial branch targets. This was repeated at the L3-4 L4-5 and L5-S1 levels. Stylette was removed and using radiofrequency probe inserted into each needle individually at each level and then motor tested with no motor stimulation of the lower extremity. Patient did have some multifidus musculature contraction in the lumbar spine only but without radiation. At this time 1 cc of 2% lidocaine was then injected in each needle after motor testing but prior to radiofrequency ablation. Needle position was confirmed continuously throughout the radiofrequency ablation with both AP oblique and lateral views at each level. At this time radiofrequency ablation was carried out each level for 60 seconds at 80 C x 2 at each level with the tip of the needle turned 90 degrees after the first 60 seconds and then subsequent 60 seconds of radiofrequency ablation. Once radiofrequency ablation was completed solution containing 0.25% bupivacaine 1 cc and 20 mg Depo-Medrol was injected each level. Needle was then withdrawn. The procedure was repeated for the contralateral side as described as well. Patient had no paresthesias throughout the procedure no radiation of pain into the lower extremities no lower extremity motor response with motor testing bilaterally. Please see radio frequency flowsheet for levels, temperatures, impedance, etc. Condition at Discharge: Condition at Discharge: Condition at discharge stable, patient alert the procedure well and had no complications. ROSITA RANGEL MD May 25, 2020 14:21
== END | disposition home or self-care (01) ==
LOC: PNCL 13:01
PROVIDERS: ATTEND Anesthesiology
DX: M51.36 Other intervertebral disc degeneration, lumbar region (principal); M47.817 Spondylosis without myelopathy or radiculopathy, lumbosacral region; Z79.899 Other long term (current) drug therapy
CPT/HCPCS: 64635; 64636; J1030; J1040; J3490

== ENCOUNTER → 2020-06-22 | Outpatient (CLI) | payer BC ==
[~2020-06-22] MED LIST changes: -LIDOCAINE 1% PF 2 ML VIAL. ONE; -LIDOCAINE 2% PF 5 ML VIAL. ONE; -methylPREDNISolone ACETATE 80 MG/ML VIAL. ONE
--- NOTE | 2020-06-22 09:08 | PDOC ---
Progress Note - Pain Clinic Date of Service: DOS: DATE: 06/22/20 TIME: 09:03 Diagnosis: Dx: Lumbar degenerative disc disease lumbar and lumbosacral spondylosis Myofascial pain History or Present Illness: HPI: 39-year-old female returns for follow-up status post radiofrequency ablation L4- 5 L5-S1 medial branches on May 25, 2020. Patient reports about 75% improvement but now has significant pain which is different than her report in the mid and low back as well and into the bilateral gluteus distribution very firm tight tenderness in the low back itself which is "knifelike" patient reports that it feels like she is bruised in the low back she has been increasing her activity fairly significantly after her radiofrequency ablation and has been sitting for prolonged periods at her son's track meets and traveling in the car quite a bit when she feels she has increased pain in her back secondary. Patient rates her pain as 8 on scale 10 is worse over the past week 6 on average 5 its least is a 7 today patient reports is aching and dull stabbing and tight in the back itself. Patient is been obese for about 4 days has been not responding to stretching and heat application and analgesics. Patient reports no new motor or sensory deficits no bowel or bladder incontinence. Physical Exam: VS: Blood pressure is 120/86 pulse 79 respiration 16 temperature 98.1 F height is 5 feet 4 inches weight is 187 pounds PE: PHYSICAL EXAMINATION: GENERAL: The patient is awake, alert, oriented, appropriate, very pleasant demeanor HEENT: Shows normocephalic, atraumatic. Extraocular movements are intact and symmetrical. NECK: Shows anterior throat supple without palpable lymphadenopathy noted. Swallow reflex symmetrical. CHEST: Shows normal on inspection. Breath sounds are clear bilaterally. HEART: Shows S1, S2 clear. No murmurs auscultated. ABDOMEN: Soft, nontender, nondistended. No palpable organomegaly is noted. No rebound or guarding demonstrated. BACK: Shows spine grossly in the midline. Normal-appearing cervical lordotic curvature. There is mildly increased thoracic kyphosis, some flattening of the lumbar lordotic curvature. Lumbar paraspinous muscles show symmetrical on inspection, on palpation shows some moderate tenderness throughout the upper, middle and lower distribution of the paraspinous muscles, very firm ropelike musculature in the lower thoracic distribution as well as in the upper and lower and middle distribution of the lumbar paraspinous muscles very firm consistent with trigger point areas of musculature very tender with palpation without specific radiation this is true into the bilateral superior medial gluteus more on the left than the right but present bilaterally very firm ropelike musculature very tender consistent with trigger point areas of musculature without radiation. The patient has good rotational motion of the lumbar spine, both laterally as well as extension and flexion without significant difficulty. No tenderness over the spinous processes, sacrum or sacroiliac regions. EXTREMITIES: Lower extremities show deep tendon reflexes 2+ in the patellar and tendo calcaneus tendons. Motor exam is 5 on a scale of 5 with right dorsiflexion, extension, quadriceps and hamstring flexion and 5/5 on the left. Peripheral pulses are 1+ posterior tibial. No peripheral edema is noted bilaterally. Lower extremities are warm and dry to touch, equal in color and appearance. SKIN: Shows warm and dry, good turgor. No edema. No sores, rashes or bruising throughout. Procedure: Procedure: Options were discussed with the patient. Patient chart reviews her current medication regimen updated current review of systems updated today as well. We will proceed with trigger point injections of the lower thoracic paraspinous muscles. Lumbar paraspinous muscles are upper middle and lower distribution as well as the bilateral gluteus musculature. Risk were discussed including but not limited to bleeding infection possibility of intravascular injection seq uelae spread local anesthetic numbness side effects steroid medication and poor results regarding pain control. Patient understands wished to proceed. Patient will return to clinic in approximately 4 weeks for follow-up, was counseled as to return appointment activity level and side effects aware of. Medication Injected: Med Injected: Patient sitting position under sterile prep and drape using 25-gauge 1/2 inch needle trigger points identified in the lower thoracic paraspinous muscle bilaterally in the upper middle and lower distribution of the lumbar paraspinous posture bilaterally as well as the bilateral gluteus muscles are very firm ropelike musculature injected after negative aspiration each injection site with a total of 8 cc 0.25% bupivacaine and a total of 40 mg Depo-Medrol. Patient tolerated procedure well and had no complications. Condition at Discharge: Condition at Discharge: Condition at discharge stable, patient alert the procedure well and had no complications. ROSITA RANGEL MD June 22, 2020 09:08
--- NOTE | 2020-06-22 09:08 | PDOC4 ---
PROCEDURE Procedure Patient was consented for trigger point injections. Risk were discussed inc luding but not limited to bleeding infection possibly of intravascular injection sequelae spread local anesthetic numbness side effects of steroid medication portals rating pain control. Patient understands wished to proceed. Patient sitting position under sterile prep and drape using 25-gauge 1/2 inch needle trigger points identified in the lower thoracic paraspinous muscle bilat erally in the upper middle and lower distribution of the lumbar paraspinous posture bilaterally as well as the bilateral gluteus muscles are very firm ropelike musculature injected after negative aspiration each injection site with a total of 8 cc 0.25% bupivacaine and a total of 40 mg Depo-Medrol. Patient tolerated procedure well and had no complications. ROSITA RANGEL MD June 22, 2020 09:08
== END | disposition home or self-care (01) ==
LOC: PNCL 08:03
PROVIDERS: ATTEND Anesthesiology
DX: M51.36 Other intervertebral disc degeneration, lumbar region (principal); M47.817 Spondylosis without myelopathy or radiculopathy, lumbosacral region; M79.18 Myalgia, other site; Z79.899 Other long term (current) drug therapy
CPT/HCPCS: 20553; J1030; J3490

== ENCOUNTER → 2020-07-28 | Outpatient (CLI) | payer BC ==
[~2020-07-28] MED LIST changes: -BUPIVACAINE MPF 0.25% 10 ML VIAL. ONE; -methylPREDNISolone ACETATE 40 MG/ML VIAL. ONE
--- NOTE | 2020-07-28 11:13 | PDOC ---
Progress Note - Pain Clinic Date of Service: DOS: DATE: 07/28/20 TIME: 11:08 Diagnosis: Dx: Lumbar degenerative disease lumbar and lumbosacral spondylosis Myofascial pain History or Present Illness: HPI: 39-year-old female returns for follow-up status post trigger point injections last seen June 22, 2020. Patient reports she did very well but fell about a week after the injections on a slippery area of grass in her yard and celeste her back which caused the pain to come back fairly quickly in the mid upper back mid low back and into the posterior gluteus bilaterally. Patient reports for that she was doing very well with at least 50% improvement after the injection is now the pain is returned significantly and feels tight stabbing aching cramping can be constant and severe and unbearable patient reports mostly as a tight feeling which is keeping her up at from sleep at night as well. Patient rates her pain a 7 on scale 10 is worse over the past week 5 on average 4 to sleep and is a 7 today patient reports worse with right hand low back sitting for prolonged periods standing walking. Patient is also been using her parents swimming pool to do some water aerobics and this seems to help the pain but is not relieving the tight muscular pain in the low back currently. Patient reports no new motor or sensory deficits no bowel or bladder incontinence. Physical Exam: VS: Blood pressure is 120/79 pulse 94 respirations 16 temperature 98.4 F height is 5 foot 4 inches weight is 187 pounds PE: PHYSICAL EXAMINATION: GENERAL: The patient is awake, alert, oriented, appropriate, very pleasant in demeanor HEENT: Shows normocephalic, atraumatic. Extraocular movements are intact and symmetrical. Oral cavity: Mucous membranes moist and pink. Dentition is intact. NECK: Shows anterior throat supple without palpable lymphadenopathy noted. Swallow reflex symmetrical. CHEST: Shows normal on inspection. Breath sounds are clear bilaterally. HEART: Shows S1, S2 clear. No murmurs auscultated. ABDOMEN: Soft, nontender, nondistended, obese. BACK: Shows spine grossly in the midline. Normal-appearing cervical lordotic curvature. There is slightly increased thoracic kyphosis, some minor flattening of the lumbar lordotic curvature. Lumbar paraspinous muscles show symmetrical on inspection, on palpation shows some moderate tenderness diffusely throughout the upper, middle and lower distribution of the paraspinous muscles bilaterally and also into the lower thoracic paraspinous musculature, firm and tender, with significant very firm ropelike musculature in the lower thoracic bilaterally as well as the upper middle and lower distribution of the lumbar paraspinous musculature into the superior medial gluteus more on the right than the left with very firm ropelike musculature consistent with trigger point areas of musculature very firm very tender but without significant radiation on palpation. Patient shows good rotation motion of the lumbar spine both laterally greater than 10 degrees right and left as well as extension greater than 10 degrees forward flexion 45 degrees only minimal to moderate pain with extension. EXTREMITIES: Lower extremities show deep tendon reflexes 2+ in the patellar and tendo calcaneus tendons. Motor exam is 5 on a scale of 5 with right dorsiflexion, extension, quadriceps and hamstring flexion and 5/5 on the left. Peripheral pulses are 1+ posterior tibial. No peripheral edema is noted bilaterally. Lower extremities are warm and dry. SKIN: Shows warm and dry, good turgor. No edema. No sores, rashes or bruising throughout. Procedure: Procedure: Options were discussed with the patient. Patient chart was reviewed as her current medication regimen updated current review of systems updated today as well. We will proceed with trigger point injections of the aforementioned musculature in the bilateral thoracic paraspinous musculature bilateral lumbar paraspinous posterior bilateral gluteus musculature. Risk were discussed including but not limited to bleeding infection possibility of intravascular injection sequelae spread local anesthetic numbness side effects steroid medi cation, and poor results regarding pain control. Patient understands wished to proceed. Patient return to clinic in approximately 4 weeks for follow-up, was counseled as return appointment activity level, and side effects to be aware of. Medication Injected: Med Injected: Under sterile prep and drape patient in sitting position trigger point muscu lature was identified in the bilateral thoracic paraspinous muscle bilateral lumbar paraspinous posterior and bilateral gluteus musculature using 25-gauge needle after negative aspiration each injection site total of 12 cc 0.25% Vivacaine and total of 40 mg Depo-Medrol was injected. Patient tolerated the procedure well and had no complications. Condition at Discharge: Condition at Discharge: Condition at discharge stable, patient alert the procedure well and had no complications. ROSITA RANGEL MD Jul 28, 2020 11:12
--- NOTE | 2020-07-28 11:13 | PDOC4 ---
PROCEDURE Procedure Patient was consented for trigger point injections. Risk were discussed inc luding but not limited to bleeding infection possibility of intravascular injection and sequelae spread of local anesthetic and numbness side effects steroid medication and poor results regarding pain control. Patient understands wished to proceed. Under sterile prep and drape patient in sitting position trigger point musculature was identified in the bilateral thoracic paraspinous muscle bilateral lumbar paraspinous posterior and bilateral gluteus musculature using 25-gauge needle after negative aspiration each injection site total of 12 cc 0.25% Vivacaine and total of 40 mg Depo-Medrol was injected. Patient tolerated the procedure well and had no complications. ROSITA RANGEL MD Jul 28, 2020 11:13
== END | disposition home or self-care (01) ==
LOC: PNCL 10:01
PROVIDERS: ATTEND Anesthesiology
DX: M51.36 Other intervertebral disc degeneration, lumbar region (principal); M47.817 Spondylosis without myelopathy or radiculopathy, lumbosacral region; M79.18 Myalgia, other site; Z79.899 Other long term (current) drug therapy
CPT/HCPCS: 20553

== ENCOUNTER → 2020-09-03 | Outpatient (CLI) | payer BC ==
[~2020-09-03] MED LIST changes: +BUPIVACAINE MPF 0.25% 10 ML VIAL. ONE; +IOHEXOL 180 MG/ML 10 ML VIAL. ONE; +methylPREDNISolone ACETATE 40 MG/ML VIAL. ONE; +methylPREDNISolone ACETATE 80 MG/ML VIAL. ONE
--- NOTE | 2020-09-03 09:44 | PDOC ---
Progress Note - Pain Clinic Date of Service: DOS: DATE: 09/03/20 TIME: 09:41 Diagnosis: Dx: Lumbar radiculopathy with lumbar degenerative disease and lumbar and lumbosacral spondylosis Myofascial pain History or Present Illness: HPI: 40-year-old female returns for follow-up status post bilateral trigger point injections lumbar paraspinous posterior gluteus and thoracic paraspinous muscles with good results for about 2 weeks about 70% improvement but the pain is returning now more with walking standing changing position especially standing for prolonged periods in the low back itself without radiation to the lower extremities. Patient reports is worse with turning right or left somewhat worse on the right side but present bilaterally without radiation patient reports is an 8 on scale 10 is worse over the past week 7 on average 5 its least is a 5 today patient reports its aching burning can be sharp or dull constant severe cramping as well in the back waking her from sleep at least once or twice at night recently. Patient reports no bowel or bladder incontinence no loss of motor function but significant pain in the low back itself patient with extens ion of the lumbar spine. Physical Exam: VS: Blood pressure is 120/97 pulse 85 versus 18 temperature 90.5 F height is 5 feet 4 inches weight is 195 pounds PE: PHYSICAL EXAMINATION: GENERAL: The patient is awake, alert, oriented, appropriate, very pleasant in demeanor HEENT: Shows normocephalic, atraumatic. Extraocular movements are intact and symmetrical. Oral cavity: Mucous membranes moist and pink. Dentition is intact. NECK: Shows anterior throat supple without palpable lymphadenopathy noted. Swallow reflex symmetrical. CHEST: Shows normal on inspection. Breath sounds are clear bilaterally, no rales or rhonchi. HEART: Shows S1, S2 clear. No murmurs auscultated. ABDOMEN: Soft, nontender, nondistended, obese. No palpable organomegaly is noted. BACK: Shows spine grossly in the midline. Normal-appearing cervical lordotic curvature. There is slightly increased thoracic kyphosis, some minor flattening of the lumbar lordotic curvature. Lumbar paraspinous muscles show symmetrical on inspection, on palpation shows some moderate tenderness diffusely throughout the upper, middle and lower distribution of the paraspinous muscles without specific trigger points, without radiation of pain. The patient has good rotational motion of the lumbar spine, both laterally as well as extension and flexion with significant tenderness with extension of the lumbar spine and axial loading of the low back bilaterally forward flexion 45 degrees is decreasing the pain right left lateral rotation past 10 degrees is tender as well with significant pain reported more to the right than the left and present bilaterally without radiation. No tenderness over the spinous processes, sacrum or sacroiliac regions. EXTREMITIES: Lower extremities show deep tendon reflexes 2+ in the patellar and tendo calcaneus tendons. Motor exam is 5 on a scale of 5 with right dorsiflexion, extension, quadriceps and hamstring flexion and 5/5 on the left. Peripheral pulses are 1+ posterior tibial. No peripheral edema is noted bilaterally. Lower extremities are warm and dry. SKIN: Shows warm and dry, good turgor. No edema. No sores, rashes or bruising throughout. Procedure: Procedure: Options were discussed with the patient. Patient chart was reviewed as her current medication regimen updated current review of systems updated today as well. We will proceed with bilateral L4-5 and L5-S1 medial branch facet blocks today with fluoroscopic guidance. Risks were discussed including but not limited to: Bleeding, infection, possibility of epidural hematoma and subsequent neurological compromise, dural puncture, headaches, spinal cord and/or nerve damage, side effects of steroid medication, and poor results regarding pain control. Patient understands and wished to proceed. Patient return to clinic in approximate 4 weeks for follow-up, was counseled as return appointment activity level and side effects to be aware of. Medication Injected: Med Injected: Under sterile prep and drape using C-arm fluoroscopic guidance AP and lateral and oblique views, bilateral L4-5 and L5-S1 facet joint MB's injections were performed, using quinke needles with stylette's x4,, medications injected: 120 mg Depo-Medrol +4 cc 0.25% bupivacaine +2 cc contrast. Condition at discharge stable patient tolerated the procedure well and no complications. Condition at Discharge: Condition at Discharge: Condition at discharge stable, patient already procedure well and had no complications. ROSITA RANGEL MD Sep 03, 2020 09:44
--- NOTE | 2020-09-03 09:45 | PDOC4 ---
Procedure Note: ICD 10 Code: ICD 10 Code: M 47.816 M 47.817 Procedure Note: Patient was consented for bilateral lumbar facet medial branch blocks with fluoroscopic guidance. Risks were discussed including but not limited to: Bleeding, infection, possibility of epidural hematoma and subsequent neurological compromise, dural puncture, headaches, spinal cord and/or nerve damage, side effects of steroid medication, and poor results regarding pain control. Patient understands and wished to proceed. Under sterile prep and drape using C-arm fluoroscopic guidance AP and lateral and oblique views, bilateral L4-5 and L5-S1 facet joint MB's injections were performed, using quinke needles with stylette's x4,, medications injected: 120 mg Depo-Medrol +4 cc 0.25% bupivacaine +2 cc contrast. Condition at discharge stable patient tolerated the procedure well and no complications. ROSITA RANGEL MD Sep 03, 2020 09:45
== END ==
LOC: PNCL 08:30
PROVIDERS: ATTEND Anesthesiology
DX: M47.817 Spondylosis without myelopathy or radiculopathy, lumbosacral region (principal)
CPT/HCPCS: 64493; 64494; J1030; J1040; J3490; Q9965

== ENCOUNTER → 2020-10-06 | Outpatient (CLI) | payer BC ==
[~2020-10-06] MED LIST changes: -methylPREDNISolone ACETATE 40 MG/ML VIAL. ONE
--- NOTE | 2020-10-06 09:29 | PDOC ---
Progress Note - Pain Clinic Date of Service: DOS: DATE: 10/06/20 TIME: 09:22 Diagnosis: Dx: Lumbar and lumbosacral spondylosis Lumbar degenerative disc disease Myofascial pain History or Present Illness: HPI: 40-year-old female returns for follow-up status post radiofrequency ablation lumbar L4-5 and L5-S1 levels as well as recent lumbar facet injection September 03, 2020 patient reports about 85 to 90% improvement for the first few weeks following the injection patient reports evening increase in activity over the last week or so helping her son move to his college norm and doing quite a bit of walking and stair climbing patient reports the pain is increasing in the low back now more on the left side than the right but present bilaterally patient reports that sharp dull constant radiating stabbing can be tingling and tight in her left leg can "fall asleep" when sitting for prolonged periods patient repo rts is better generally with sitting or laying down but is waking her from sleep about every 2 hours or so patient reports is an 8 on scale 10 is worse over the past week 6 on average 5 its least is a 5 today patient reports no loss of motor function no bowel or bladder incontinence. Patient has new medication indomethacin which she has been taking now for just about half a week and reports that it does help but does not relieve the pain completely. Patient reports no new motor or sensory deficits no bowel or bladder incontinence. Physical Exam: VS: Blood pressure is 139/97 pulse 103 respirations 20 temperature is 98.3 F height is 5 foot 4 inches weight is 195 pound PE: PHYSICAL EXAMINATION: GENERAL: The patient is awake, alert, oriented, appropriate, very pleasant in demeanor. HEENT: Shows normocephalic, atraumatic. Extraocular movements are intact and symmetrical. Oral cavity: Mucous membranes moist and pink. Dentition is intact. NECK: Shows anterior throat supple without palpable lymphadenopathy noted. Swallow reflex symmetrical. CHEST: Shows normal on inspection. Breath sounds are clear bilaterally, distant but no rales or rhonchi. HEART: Shows S1, S2 clear. No murmurs auscultated. ABDOMEN: Soft, nontender, nondistended, obese. No palpable organomegaly is noted. BACK: Shows spine grossly in the midline. Normal-appearing cervical lordotic curvature. There is slightly increased thoracic kyphosis, some minor flattening of the lumbar lordotic curvature. Lumbar paraspinous muscles show symmetrical on inspection, on palpation shows some moderate tenderness diffusely throughout the upper, middle and lower distribution of the paraspinous muscles, but without specific trigger points, without radiation of pain. The patient has good rotational motion of the lumbar spine, both laterally as well as extension and flexion with significant tenderness with left greater than right lateral rotation greater than 10 degrees as well as significant tenderness bilaterally again left greater than right with extension and axial loading greater than 10 degrees, forward flexion 45 degrees is performed without significant difficulty. No tenderness over the spinous processes, sacrum or sacroiliac regions. EXTREMITIES: Lower extremities show deep tendon reflexes 2+ in the patellar and tendo calcaneus tendons. Motor exam is 5 on a scale of 5 with right dorsiflexion, extension, quadriceps and hamstring flexion and 5/5 on the left. Peripheral pulses are 1+ posterior tibial. No peripheral edema is noted bilaterally. Lower extremities are warm and dry. SKIN: Shows warm and dry, good turgor. No edema. No sores, rashes or bruising throughout. Procedure: Procedure: Options discussed with the patient. Patient's old chart was viewed as her current medication regimen updated current review of systems updated today as well. We will proceed with bilateral L4-5 and L5-S1 facet medial branch blocks with fluoroscopic guidance. Risks were discussed including but not limited to: Bleeding, infection, possibility of epidural hematoma and subsequent neurological compromise, dural puncture, headaches, spinal cord and/or nerve damage, side effects of steroid medication, and poor results regarding pain c ontrol. Patient understands and wished to proceed. Patient return to the clinic in approximately 4 weeks for follow-up, was counseled as return appointment active level and side effects be aware of. Patient also given refill prescription for hydrocodone which will be electronically prescribed 7.5 mg #75, with instructions side effects beware of discussed. Medication Injected: Med Injected: Under sterile prep and drape using C-arm fluoroscopic guidance AP and lateral and oblique views, bilateral L4-5 and L5-S1 facet joint MB's injections were performed, using quinke needles with stylette's x4,, medications injected: 120 mg Depo-Medrol +4 cc 0.25% bupivacaine +2 cc contrast. Condition at discharge stable patient tolerated the procedure well and no complications. Condition at Discharge: Condition at Discharge: Condition at discharge is stable, patient already procedure well and had no complications. ROSITA RANGEL MD Oct 06, 2020 09:29
--- NOTE | 2020-10-06 09:30 | PDOC4 ---
Procedure Note: ICD 10 Code: ICD 10 Code: M4 7.816 M4 7.817 M51.87 Procedure Note: Patient was consented for bilateral lumbar facet medial branch blocks with fluoroscopic guidance. Risks were discussed including but not limited to: Bleeding, infection, possibility of epidural hematoma and subsequent neurological compromise, dural puncture, headaches, spinal cord and/or nerve damage, side effects of steroid medication, and poor results regarding pain control. Patient understands and wished to proceed. Under sterile prep and drape using C-arm fluoroscopic guidance AP and lateral and oblique views, bilateral L4-5 and L5-S1 facet joint MB's injections were performed, using quinke needles with stylette's x4,, medications injected: 120 mg Depo-Medrol +4 cc 0.25% bupivacaine +2 cc contrast. Condition at discharge stable patient tolerated the procedure well and no complications. ROSITA RANGEL MD Oct 06, 2020 09:30
== END ==
LOC: PNCL 08:29
PROVIDERS: ATTEND Anesthesiology
DX: M51.36 Other intervertebral disc degeneration, lumbar region (principal); M47.817 Spondylosis without myelopathy or radiculopathy, lumbosacral region
CPT/HCPCS: 64493; 64494; J1040; J3490; Q9965

== ENCOUNTER → 2020-11-02 | Outpatient (CLI) | payer BC ==
[~2020-11-02] MED LIST changes: -BUPIVACAINE MPF 0.25% 10 ML VIAL. ONE; -IOHEXOL 180 MG/ML 10 ML VIAL. ONE; -methylPREDNISolone ACETATE 80 MG/ML VIAL. ONE
--- NOTE | 2020-11-02 12:17 | NUR ---
Patient called states she needs a refill on her pain medications. verified patients name and date of . States he level of pain is a 7. Denies any new medications, medical problems or allergies Verified pharmacy and next appointment. Denies any constipation. [employer] pulled for Dr Hi call transferred to Dr Hi.
--- NOTE | 2020-11-02 13:03 | PDOC ---
Progress Note - Pain Clinic Date of Service: DOS: DATE: 11/02/20 TIME: 13:01 Diagnosis: Dx: Lumbar and lumbosacral spondylosis, lumbar degenerative disc disease, myofascial pain History or Present Illness: HPI: Telemedicine visit today with the patient identity verified with full date of as well as full name, total time spent, 14 minutes 40-year-old female via telemedicine visit today with follow-up after bilateral L4-5 and L5-S1 medial branch facet blocks October 06 patient reports has been doing very well but the pain is returning now fairly significantly across the low back but not into the lower extremities patient reports slightly worse on the right than the left and present bilaterally worse with walking standing changing positions when he sitting for prolonged. Patient reports she has been at the local hospital as her daughter has had some complications post , and this is caused her to be in some uncomfortable chairs and been on her feet quite a bit recently causing the pain to increase. Patient reports no new motor or sensory deficits no bowel or bladder incontinence. Patient is requesting a refill of her hydrocodone 7.5 mg and she does well with this has been on very stable regimen with the medications and we did review a K tracks report with her today and we discussed that she had received some hydrocodone 5 mg from a emergency visit for pain in the back on September 27. We discussed that this would not be allowed going forward as far as any other providers prescribing medication for her and she voices understanding of this. We will electronically prescribed a medication for her and she will follow up in approximately 2 weeks as scheduled. Physical Exam: PE: ROSITA RANGEL MD Nov 02, 2020 13:03
== END | disposition home or self-care (01) ==
LOC: PNCL 12:15
PROVIDERS: ATTEND Anesthesiology
DX: M51.36 Other intervertebral disc degeneration, lumbar region (principal); M47.817 Spondylosis without myelopathy or radiculopathy, lumbosacral region; M79.18 Myalgia, other site; Z79.899 Other long term (current) drug therapy
CPT/HCPCS: 99212; G0463

== ENCOUNTER → 2020-11-09 | Outpatient (CLI) | payer BC ==
[~2020-11-09] MED LIST changes: +BUPIVACAINE MPF 0.25% 10 ML VIAL. ONE; +IOHEXOL 180 MG/ML 10 ML VIAL. ONE; +methylPREDNISolone ACETATE 40 MG/ML VIAL. ONE; +methylPREDNISolone ACETATE 80 MG/ML VIAL. ONE
--- NOTE | 2020-11-09 10:39 | PDOC ---
Progress Note - Pain Clinic Date of Service: DOS: DATE: 11/09/20 TIME: 10:35 Diagnosis: Dx: Lumbar and lumbosacral spondylosis with lumbar degenerative disc disease Myofascial pain History or Present Illness: HPI: 40-year-old female returns for follow-up status post bilateral L4-5 and L5-S1 facet medial branch blocks last seen October 06, 2020 patient did very well with about 80% improvement for 2 to 3 weeks patient reports pain returning now she has had increased activity at home as her daughter recently gave and has had some significant complications so she is taking care of the grandchildren which has been more stress on her back as well as mentally patient reports her pain a 7 on scale 10 is worse over the past week smells of 5 and average for its least is a 4 today patient ports sharp tight cramping stabbing severe across the low back radiating across the right to left but not to the lower extremities patient reports slightly worse on the left side currently than the right. Patient reports is waking her from sleep about every 3-4 hours prior that she is in much better distance walking doing household activities try with greater ease and comfort doing work activities as well now the pain is significantly increasing especially in the left side. Patient reports no bowel or bladder incontinence. Physical Exam: VS: Blood pressure is 134/86 pulse 85 respirations 16 temperature 98.3 F weight is 197 pounds PE: PHYSICAL EXAMINATION: GENERAL: The patient is awake, alert, oriented, appropriate, very pleasant in demeanor HEENT: Shows normocephalic, atraumatic. Extraocular movements are intact and symmetrical. Oral cavity: Mucous membranes moist and pink. NECK: Shows anterior throat supple without palpable lymphadenopathy noted. Swallow reflex symmetrical. CHEST: Shows normal on inspection. Breath sounds are clear bilaterally, no rales or rhonchi. HEART: Shows S1, S2 clear. No murmurs auscultated. ABDOMEN: Soft, nontender, nondistended, obese. No palpable organomegaly is noted. BACK: Shows spine grossly in the midline. Normal-appearing cervical lordotic curvature. There is slightly increased thoracic kyphosis, some minor flattening of the lumbar lordotic curvature. Lumbar paraspinous muscles show symmetrical on inspection, on palpation shows some moderate tenderness diffusely throughout the upper, middle and lower distribution of the paraspinous muscles without specific trigger points, without radiation of pain. The patient has good rotational motion of the lumbar spine, both laterally as well as extension and flexion with significant tenderness with left greater than right rotation past 1 0 degrees as well as extension of the lumbar spine with significant pain more left than the right as well better with forward flexion which is 145 degrees without significant difficulty. No tenderness over the spinous processes, sacrum or sacroiliac regions. EXTREMITIES: Lower extremities show deep tendon reflexes 2+ in the patellar and tendo calcaneus tendons. Motor exam is 5 on a scale of 5 with right dorsiflexion, extension, quadriceps and hamstring flexion and 5/5 on the left. Peripheral pulses are 1+ posterior tibial. No peripheral edema is noted bilaterally. Lower extremities are warm and dry to touch, equal in color and appearance. SKIN: Shows warm and dry, good turgor. No edema. No sores, rashes or bruising throughout. Procedure: Procedure: Options discussed with the patient. Patient chart reviews her current medication regimen updated current view of systems updated today as well. We will proceed with bilateral L4-5 and L5-S1 medial branch facet blocks today with fluoroscopic guidance. Risks were discussed including but not limited to: Bleeding, infection, possibility of epidural hematoma and subsequent neurological compromise, dural puncture, headaches, spinal cord and/or nerve damage, side effects of steroid medication, and poor results regarding pain control. Patient understands and wished to proceed. Patient return to clinic in approximate 4 weeks for follow-up, was counseled as to return appointment, activity level, and side effects to be aware of. Medication Injected: Med Injected: Under sterile prep and drape using C-arm fluoroscopic guidance AP and lateral and oblique views, bilateral L4-5 and L5-S1 facet joint MB's injections were performed, using quinke needles with stylette's x4,, medications injected: 120 mg Depo-Medrol +4 cc 0.25% bupivacaine +2 cc contrast. Condition at discharge stable patient tolerated the procedure well and no complications. Condition at Discharge: Condition at Discharge: Condition at discharge stable, patient tolerated the procedure well and had no complications. ROSITA RANGEL MD Nov 09, 2020 10:39
--- NOTE | 2020-11-09 10:40 | PDOC4 ---
Procedure Note: ICD 10 Code: ICD 10 Code: M4 7.816 M4 7.817 Procedure Note: Patient is consented for bilateral L4-5 and L5-S1 medial branch facet blocks with fluoroscopic guidance. Risks were discussed including but not limited to: Bleeding, infection, possibility of epidural hematoma and subsequent neurological compromise, dural puncture, headaches, spinal cord and/or nerve damage, side effects of steroid medication, and poor results regarding pain control. Patient understands and wished to proceed. Under sterile prep and drape using C-arm fluoroscopic guidance AP and lateral and oblique views, bilateral L4-5 and L5-S1 facet joint MB's injections were performed, using quinke needles with stylette's x4,, medications injected: 120 mg Depo-Medrol +4 cc 0.25% bupivacaine +2 cc contrast. Condition at discharge stable patient tolerated the procedure well and no complications. ROSITA RANGEL MD Nov 09, 2020 10:40
== END | disposition home or self-care (01) ==
LOC: PNCL 08:02
PROVIDERS: ATTEND Anesthesiology
DX: M51.36 Other intervertebral disc degeneration, lumbar region (principal); M47.817 Spondylosis without myelopathy or radiculopathy, lumbosacral region; M79.18 Myalgia, other site; Z79.899 Other long term (current) drug therapy
CPT/HCPCS: 64493; 64494; J1030; J1040; J3490; Q9965

== ENCOUNTER → 2021-01-22 | Outpatient (CLI) | payer BC ==
[~2021-01-22] MED LIST changes: -BUPIVACAINE MPF 0.25% 10 ML VIAL. ONE; +CYCL10TA19 PO; -CYCL10TA2 PO; -IOHEXOL 180 MG/ML 10 ML VIAL. ONE; +TIZA-75 PO; -TIZA4TAB2 PO; -methylPREDNISolone ACETATE 40 MG/ML VIAL. ONE; -methylPREDNISolone ACETATE 80 MG/ML VIAL. ONE
--- NOTE | 2021-01-22 12:20 | PDOC ---
Progress Note - Pain Clinic Date of Service: DOS: DATE: 01/22/21 TIME: 12:19 Diagnosis: Dx: Lumbar radiculopathy lumbar degenerative disease and lumbar and lumbosacral spondylosis Myofascial pain History or Present Illness: HPI: 40-year-old female via telemedicine visit today with identity verified with full date of as well as full name total time spent, 12 minutes Patient going with request for refill of hydrocodone 7.5 mg patient done very well with this is been on very stable regimen with the last seen with radio frequency ablation of the lumbar medial branches and recent facet injections November 09 of this year with very good results about 80 to 85% improvement for several weeks following the injection patient is scheduled to return in approximately 2 weeks for repeat diagnostic injections and potentially radiofrequency ablation as she does very well with these for about 6 months. Patient reports no side effects with the medication has had appropriate K tracks reporting as well as appropriate urinalyses to date. We will refill patient's hydrocodone 7.5 mg #75 with instructions side effects aware discussed with the patient. Patient will follow up in approximate 2 weeks as scheduled. Physical Exam: PE: ROSITA RANGEL MD Jan 22, 2021 12:20
== END | disposition home or self-care (01) ==
LOC: PNCL 10:01
PROVIDERS: ATTEND Anesthesiology
DX: M51.16 Intervertebral disc disorders with radiculopathy, lumbar region (principal); M47.27 Other spondylosis with radiculopathy, lumbosacral region; M79.18 Myalgia, other site; M47.26 Other spondylosis with radiculopathy, lumbar region; Z79.899 Other long term (current) drug therapy
CPT/HCPCS: 99212; G0463

== ENCOUNTER → 2021-02-19 | Outpatient (CLI) | payer BC ==
--- NOTE | 2021-02-19 09:36 | NUR ---
Patient called requesting a refill on meds,reviewed medications verified patient ,verified allergies,and next appointment. patient denies constipation, new medical problems . States her pain level is around a 6-7. Call transferred to Dr Hi. [employer] is correct since 09/27/20.
--- NOTE | 2021-02-19 09:47 | PDOC ---
Progress Note - Pain Clinic Date of Service: DOS: DATE: 02/19/21 TIME: 09:45 Diagnosis: Dx: Lumbar degenerative disc disease of lumbar and lumbosacral spondylosis Myofascial pain History or Present Illness: HPI: Telemedicine visit today with patient's identity verified with full date of as well as full name, total time spent 12 minutes 40-year-old female via telemedicine visit today requesting refill of hydrocodone 7.5 mg patient has had significant improvement with this without side effects patient is status post lumbar facet medial branch blocks as well as radiofrequency ablation and we had planned radiofrequency ablation for next month as patient is getting her schedule organized to be able to do this. In the meantime patient has been able to use the hydrocodone without side effects and generally taking it just to help her sleep at this point but occasionally during the day as well when the pain is increased in the low back patient reports still in the low back bilaterally without radiation to the lower extremities. Again patient has had no side effects with medication has had appropriate K tracks reporting. We will electronically prescribe the hydrocodone 7.5 mg #75 with instructions side effects aware discussed. Patient will follow up in approximately 4 weeks as scheduled. Physical Exam: PE: ROSITA RANGEL MD Feb 19, 2021 09:47
== END | disposition home or self-care (01) ==
LOC: PNCL 09:29
PROVIDERS: ATTEND Anesthesiology
DX: M51.36 Other intervertebral disc degeneration, lumbar region (principal); M47.27 Other spondylosis with radiculopathy, lumbosacral region; M47.26 Other spondylosis with radiculopathy, lumbar region; M79.18 Myalgia, other site; Z79.899 Other long term (current) drug therapy
CPT/HCPCS: 99212; G0463

== ENCOUNTER → 2021-03-26 | Outpatient (CLI) | payer BC ==
--- NOTE | 2021-03-26 12:25 | NUR ---
Patient called requesting a refill. Verified patient , pharmacy denied any new medication or allergies. Patient denied constipation, new medical probables, States pain is a 6-7. ktracts is correct.
--- NOTE | 2021-03-26 12:31 | PDOC ---
Progress Note - Pain Clinic Date of Service: DOS: DATE: 03/26/21 TIME: 12:28 Diagnosis: Dx: Lumbar and lumbosacral spondylosis Lumbar degenerative disc disease Myofascial pain History or Present Illness: HPI: Telemedicine visits with patient identity verified with full name as well as full date of , total time spent 11 minutes 40-year-old female via telemedicine visit today requesting refill for hydrocodone 7.5 mg. Patient reports he is doing very well with this been on very stable regimen with about a 80% improvement with medications. Patient has had previous L4-5 and L5-S1 medial branch facet blocks with very good results about 80% improvement as well most recently November 2020. Patient had managed with hydrocodone as she is planning to adjust some financial situations to return for additional procedures. Patient reports that she is doing very well with medication no side effects she had appropriate K tracks report as well as appropriate urinalyses to date, as well. We discussed the medication with the patient as well as potential side effects and instructions for use and patient will be given a 30-day supply of the hydrocodone. Patient will follow up in approximate 30 days as scheduled, or sooner as necessary. ROSITA RANGEL MD Mar 26, 2021 12:31
--- NOTE | 2021-04-01 12:34 | FMN ---
PT PROBLEMS Addendum for visit of March 26, 2021 Telemedicine visit was performed on telephone, voice only ROSITA RANGEL MD Apr 01, 2021 12:34
== END | disposition home or self-care (01) ==
LOC: PNCL 10:55
PROVIDERS: ATTEND Anesthesiology
DX: M47.816 Spondylosis without myelopathy or radiculopathy, lumbar region (principal); M51.36 Other intervertebral disc degeneration, lumbar region; M79.18 Myalgia, other site; Z79.899 Other long term (current) drug therapy
CPT/HCPCS: 99212; G0463

== ENCOUNTER → 2021-05-25 | Outpatient (CLI) | payer BC ==
--- NOTE | 2021-05-25 10:58 | PDOC ---
Progress Note - Pain Clinic Date of Service: DOS: DATE: 05/25/21 TIME: 10:53 Diagnosis: Dx: Lumbar degenerative disease with lumbar and lumbosacral spondylosis Myofascial pain History or Present Illness: HPI: 40-year-old female returns for follow-up status post previously bilateral L4-5 and L5-S1 medial branch blocks as well as radiofrequency ablation most recently November 2020. Patient did very well with 80% improvement after the facet medial branch blocks has done well with radiofrequency ablation in the past as well wh ich has been May 2020 since this was performed. Patient reports pain returning in the low back bilaterally and with some fatigability in the back as well as the leg somewhat worse on the left than the right but without radiation of pain in the lower extremities patient reports her pain is an 8 on scale 10 is worse over the past week 6 on average 5 to [place] is a 6 today patient describes it is worse with walking standing changing position specially weightbearing or standing 1 position or sitting for prolonged periods greater than about 30minutes the pain describes it more excruciating across the low back left greater than right worse with rotation of motion especially extension or reaching up over her head with her arms and with axial loading and lumbar extension. Patient reports wakes her from sleep about 2-3 times a night she can use repositioning or take pain medication to get back to sleep. Patient been taking hydrocodone and is doing very well with this without any specific side effects. She reports no bowel or bladder incontinence. Physical Exam: VS: Blood pressure is 134/89 pulse 94 respirations 18 temperature 98.5 F height is 5.4 inches weight is 200 pounds. PE: PHYSICAL EXAMINATION: GENERAL: The patient is awake, alert, oriented, appropriate, very pleasant in demeanor HEENT: Shows normocephalic, atraumatic. Extraocular movements are intact and symmetrical. Oral cavity: Mucous membranes moist and pink. Dentition is intact. NECK: Shows anterior throat supple without palpable lymphadenopathy noted. Swallow reflex symmetrical. CHEST: Shows normal on inspection. Breath sounds are clear bilaterally, distant but no rales or rhonchi auscultated. HEART: Shows S1, S2 clear. No murmurs auscultated. ABDOMEN: Soft, nontender, nondistended. No palpable organomegaly is noted. BACK: Shows spine grossly in the midline. Normal-appearing cervical lordotic curvature. There is slightly increased thoracic kyphosis, some minor flattening of the lumbar lordotic curvature. Lumbar paraspinous muscles show symmetrical on inspection, on palpation shows some moderate tenderness diffusely throughout the upper, middle and lower distribution of the paraspinous muscles, without specific trigger points, without radiation of pain. The patient has good rotational motion of the lumbar spine, both laterally as well as extension and flexion with significant tenderness with lateral rotation left greater than right as well as extension with significant tenderness across the low back again left side greater than right, with 10 degrees axial loading and lumbar extension, forward flexion 45 degrees is performed without significant increase in pain. EXTREMITIES: Lower extremities show deep tendon reflexes 2+ in the patellar and tendo calcaneus tendons. Motor exam is 5 on a scale of 5 with right dorsiflexion, extension, quadriceps and hamstring flexion and 5/5 on the left. Peripheral pulses are 1+ posterior tibial. No peripheral edema is noted bilaterally. Lower extremities are warm and dry. SKIN: Shows warm and dry, good turgor. No edema. No sores, rashes or bruising throughout. Procedure: Procedure: Options were discussed with the patient. Patient's old chart was reviewed as her current medication regimen updated, and current review of systems updated today as well. We will preauthorize patient for radiofrequency ablation bilateral L4-5 and L5-S1 medial branch levels. Patient has had very good success with this in the past and has been approximately 1 year since this was performed. Patient has had diagnostic blocks since that time with good results as well with significant pain relief approximate 90% for 2 to 3 weeks following the medial branch blocks. Patient will work out some financial details with her insurance provider, in the meantime as well. Once approved we will have patient return for fluoroscopically guided bilateral L4-5 and L5-S1 medial branch facet radiofrequency ablation. The meantime, patient was given refill prescription of hydrocodone 7.5 mg as she has had appropriate K tracks report as well as appropriate urinalyses to date. Medication Injected: Med Injected: None Condition at Discharge: Condition at Discharge: Condition at discharge is stable. ROSITA RANGEL MD May 25, 2021 10:58
== END | disposition home or self-care (01) ==
LOC: PNCL 09:53
PROVIDERS: ATTEND Anesthesiology
DX: M51.36 Other intervertebral disc degeneration, lumbar region (principal); M47.817 Spondylosis without myelopathy or radiculopathy, lumbosacral region; M47.816 Spondylosis without myelopathy or radiculopathy, lumbar region; M79.18 Myalgia, other site; Z79.899 Other long term (current) drug therapy
CPT/HCPCS: 99212; G0463

== ENCOUNTER → 2021-06-23 | Outpatient (CLI) | payer BC ==
--- NOTE | 2021-06-23 15:06 | PDOC ---
Progress Note - Pain Clinic Date of Service: DOS: DATE: 06/23/21 TIME: 15:03 Diagnosis: Dx: Lumbar degenerative disease with lumbar and lumbosacral spondylosis Myofascial pain History or Present Illness: HPI: Telephone visit today with identity verified with full name as well as full date of , total time spent 12 minutes, telephone voice only 40-year-old female via telemedicine visit today requesting refill of hydrocodone 7.5 mg. Patient reports doing very well with this and has been on very stable regimen with the medication, without any significant side effects. She has had radiofrequency ablation of the lumbar facet medial branches as well as facet medial branch blocks with good results about 80% improvement with each of these procedures patient reports she is juggling schedules to get back in person for additional interventional treatment but was unable to do so currently. Again patient is been on very stable regimen has had appropriate K tracks with appropriate urinalyses to date. We discussed options and were electronically prescribed hydrocodone 7.5 mg #75 with instructions side effects be aware of discussed. Patient will follow up in approximately 3 weeks as scheduled. Physical Exam: PE: ROSITA RANGEL MD June 23, 2021 15:06
--- NOTE | 2021-06-23 16:56 | NUR ---
Pt called clinic today requesting of refill of her Hydrocodone 7.5/325 for her chronic pain issues. Pt. states no new health issues, side effects, constipation. States her average pain level is 6-7/10. Pts. pharmacy verified. Pt. made an appt to F/U in the pain clinic in July. Dr Hi spoke with pt. prior to E-scribing her pain med. [facility] verified. Bere Manrique RN
== END | disposition home or self-care (01) ==
LOC: PNCL 13:13
PROVIDERS: ATTEND Anesthesiology
DX: M51.36 Other intervertebral disc degeneration, lumbar region (principal); M47.817 Spondylosis without myelopathy or radiculopathy, lumbosacral region; M79.18 Myalgia, other site; Z79.899 Other long term (current) drug therapy
CPT/HCPCS: 99212; G0463